=== PATIENT | male | born 1955 | race Caucasian/White ===

== ENCOUNTER 2018-05-11 11:04 | Inpatient (IN) ==
[2018-05-11] MEDS ORDERED: ALBUMIN 5% 250 ML IV SCH ×2 (11:30→13:15)
[2018-05-11] MEDS: ALBUMIN 25% 50 ML IV SCH ×2 (12:05→19:31)
[2018-05-11 12:16] LABS: Basophils # (auto) 0.03 K/uL (0-0.2); Basophils % (auto) 0.6 %; Eosinophils # (auto) 0.03 K/uL (0-0.5); Eosinophils % (auto) 0.6 %; Hemoglobin 12.1 g/dL (14.0-18.0); Immature Granulocytes # (auto) 0.01 K/uL (0.00-0.02); Immature Granulocytes % (auto) 0.2 %; Mean Corpuscular Hgb Conc 35.6 g/dL (32-36); Mean Platelet Volume 9.3 fL (7.4-10.4); Monocytes # (auto) 0.97 K/uL (0.11-0.59); Monocytes % (auto) 17.8 %; Neutrophils % (auto) 69.8 %; Platelet Count 163 K/uL (130-400); RDW Coefficient of Variation 14.5 % (11.5-14.5); RDW Standard Deviation 54.1 fL (36.4-46.3); White Blood Count 5.44 K/uL (4.8-10.8)
[2018-05-11] MEDS ORDERED: LIDOCAINE/EPINEPHRINE 1% 20 ML VIAL INFIL ONE (12:27)
[2018-05-11 12:33] LABS: Albumin Level 2.2 gm/dl (3.4-5.0); BUN Creatinine Ratio 13.8 (10-20); Calcium 8.3 mg/dl (8.5-10.1); Creatinine Clr Calc Pharmacy 104.4 ml/min; Est GFR (African American) 117.5; Est GFR (Non-African American) 101.4; Potassium 3.7 mmol/L (3.5-5.1)
[2018-05-11 12:36] LABS: Albumin Globulin Ratio 0.4 (0.9-2); Bilirubin,Total 3.8 mg/dl (0.2-1); Globulin 5.9 gm/dl (2.5-4.0); Total Protein 8.1 gm/dl (6.4-8.2)
[2018-05-11] MEDS ORDERED: HYDROmorphone INJ 1 MG/ML SYRINGE ONE (12:36)
[2018-05-11] MEDS ORDERED: ONDANSETRON INJ 2 MG/ML 2 ML VIAL ONE (12:36)
[2018-05-11 14:14] LABS: Albumin Peritoneal Fluid 0.8 g/dl; Total Protein Peritoneal Fluid 2.4 g/dl
--- NOTE | 2018-05-11 14:34 | History & Physical Report ---
Date of Service May 11, 2018 Assessment & Plan (1) Ascites: Ascites H/O Hepatitis C Cirrhosis Alcohol Use disorder Patent could not get Liver Transplant evaluation due to Insurance issues Also reports not taking his meds for about 1 week due to Insurance issues S/P Paracentesis-- removed 5 liters of Ascites; S/P albumin infusion Lipase Normal Follow up Ascites fluid Studies Follows with GI in [place] Counseled to quit alcohol use Increase lasix to 40mg QD , aldactone 100mg QD Empirically start on Rocephin for SBP Low Salt diet Consider GI consult if needed Monitor volume status, LFTs Alcohol use disorder: Last alcohol drink was 2 days ago Monitor for Alcohol withdrawal Started on Thiamine, folic acid Ativan PRN Tobacco use disorder 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 NSVT Avoid QTC prolonging meds Monitor QTC EKG in AM Monitor on Tele DVT Px: Heparin SQ Code Status Full Code Disposition: Expect to discharge home when stable History of Present Illness Chief Complaint: Abdominal Pain Primary Care Provider: Steve Gatica Patient is a 62-year-old male with history of hepatitis C, cirrhosis with ascites, alcohol use disorder, tobacco use disorder,NGOZI and other problems presents with history of worsening abdominal pain and distention since 1 month duration. He states abdominal pain is generalized, non radiating, dull to sharp pain. Reports associated shortness of breath secondary to increased abdominal distention. Also states having worsening leg bilateral leg swelling and weight gain of unknown quantity since 1 week duration. Patient states he was supposed to get liver transplant evaluation on April 15 but could not be done secondary to lack of insurance. States his last alcohol drink was 2 days ago. Patient reports that he did not take his diuretics for about a week as he ran out of meds. Patient underwent abdominal paracentesis while in ED and had 5 L of ascites aspirated. Also received albumin while in ED. He states his abdominal pain, SOB have resolved after having paracentesis. Denies any history of chest pain, dizziness, cough, wheezing, hemoptysis, fever, chills, headache, nausea, vomiting, diarrhea, change in appetite, dysuria, hematuria, recent change in medications. 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) Ascites (Acute) Family History Father Cancer Mother Diabetes Kidney disease Other Family history non-contributory Social History Preferred Language: Greenlandic Communication Ability: Effective Medical Transcriber Required: No Beliefs That Will Affect Care: None marital status: Current Living Situation: Significant Other current occupational status: unemployed Other Information That Helps Us Care for You: No Feels Safe at Home: Yes Safety Concerns: Feels Safe At This Time Smoking Status: Current some day smoker Hx Alcohol Use: Yes Hx Substance Use: No Review of Systems All systems reviewed & are unremarkable except as noted in HPI & below Physical Exam Vital Signs (Past 24 Hours): Last Vital Signs Temp 36.8 C 05/11/18 11:09 Pulse 74 05/11/18 13:30 Resp 14 05/11/18 13:30 BP 117/63 05/11/18 13:05 Pulse Ox 99 05/11/18 13:30 Physical Exam: Physical Exam: Vitals signs as noted above General Appearance:Moderately built and nourished, no apparent distress Head: normocephalic, Atraumatic Eyes: normal inspection, EOMI Neck: supple, Trachea midline Respiratory/Chest: Normal breath sounds, CTA Cardiovascular: S1, S2, No murmur Abdomen/GI:Soft, +distended, +Umbilical Hernia, Non tender, Bowel sounds present Extremities/Musculoskelatal:normal inspection, 2+ b/l LE edema Neurologic/Psych:AAOX3, grossly no focal neurological deficits Skin: normal color, warm Results & Data Laboratory Results Short CBC 05/11/18 Range/Units 12:00 WBC 5.44 (4.8-10.8) K/uL Hgb 12.1 L (14.0-18.0) g/dL Hct 34.0 L (42-52) % Plt Count 163 (130-400) K/uL BMP 05/11/18 12:00 Sodium 135 L Potassium 3.7 Chloride 103 Carbon Dioxide 27 BUN 10 Creatinine 0.72 Glucose 86 Calcium 8.3 L Liver Function 05/11/18 Range/Units 12:00 Total Bilirubin 3.8 H (0.2-1) mg/dl AST 45 H (15-37) U/L ALT 23 (12-78) U/L Alkaline Phosphatase 98 (45-117) U/L Albumin 2.2 L (3.4-5.0) gm/dl Diagnostic Findings BAD USD: Ultrasound-guided diagnostic and therapeutic paracentesis with aspiration of 5 L of ascites. ECG Additional Comments: EKG:NSR, LAFB, Nonspecific ST and T wave abnormality; Prolonged QT
[2018-05-11 15:02] LABS: Appearance Peritoneal Fluid CLEAR; Color Peritoneal Fluid YELLOW; Mononuclear WBC Peritoneal 72.9 %; Polynuclear WBC Peritoneal 27.1 %; RBC Peritoneal Fluid (A) < 3000 /uL; WBC Peritoneal Fluid (A) 164 /ul (0-300)
[2018-05-11] MEDS ORDERED: POTASSIUM CHLORIDE 10 MEQ TABCR PO STA (15:55)
[2018-05-11] MEDS ORDERED: POLYETHYLENE (MIRALAX) 17 GM PACK PO PRN (15:55)
[2018-05-11] MEDS ORDERED: ATIVAN IV ALCOHOL WITHDRAWL IV SCH (15:55)
[2018-05-11] MEDS ORDERED: ALBUMIN 25% 50 ML IV ONE (16:30)
[2018-05-11] MEDS: MAGNESIUM SULFATE / D5W 1 GM/100 ML BAG IV ONE ×2 (16:57→17:05)
[2018-05-11] MEDS ORDERED: cefTRIAXone SODIUM 1,000 MG in DEXTROSE 5% 50 ML IV SCH (17:00)
[2018-05-11] MEDS: NICOTINE 14 MG/24 HR PATCH TD SCH (17:03)
[2018-05-11] MEDS ORDERED: LORAZEPAM 1MG IV ACTIVE PROTOCOL IV PRN (17:15)
[2018-05-11] MEDS ORDERED: LORAZEPAM 3MG IV ACTIVE PROTOCOL IV PRN (17:15)
[2018-05-11] MEDS ORDERED: LORAZEPAM 1MG TAB ACTIVE PROTOCOL PO PRN (17:15)
[2018-05-11] MEDS ORDERED: LORAZEPAM 2MG IV ACTIVE PROTOCOL IV PRN (17:15)
[2018-05-11 18:35] LABS: Appearance Urine Clear (Clear); Bacteria Urine Automated Negative (Negative); Blood Urine 3+ (Negative); Color Urine Orange; Glucose Urine UA Negative (Negative); Ketones Urine 1+ (Negative); Leukocyte Esterase Urine 1+ (Negative); Nitrite Urine Positive (Negative); Protein Urine Negative (Negative); Specific Gravity Urine 1.027 (1.000-1.030); Urobilinogen Urine Positive (Negative); pH Urine 5.5 (4.5-7.5)
[2018-05-11 18:49] LABS: Bilirubin Urine 2+ (Negative)
[2018-05-11 18:52] LABS: Ictotest Urine Positive (Negative)
[2018-05-11 19:23] LABS: INR 1.5 (0.9-1.1); Prothrombin Time 14.6 Seconds (9.0-12.0)
[2018-05-11] MEDS: HEPARIN SOD 5,000 UNIT/0.5 ML VIAL SQ SCH (21:31)
[2018-05-12 06:09] LABS: Hemoglobin 10.8 g/dL (14.0-18.0); Mean Corpuscular Hgb Conc 34.8 g/dL (32-36); Mean Corpuscular Volume 103.3 fL (80-100); Mean Platelet Volume 9.3 fL (7.4-10.4); Platelet Count 146 K/uL (130-400); RDW Coefficient of Variation 14.4 % (11.5-14.5); RDW Standard Deviation 54.7 fL (36.4-46.3); White Blood Count 5.67 K/uL (4.8-10.8)
[2018-05-12 06:36] LABS: Albumin Level 1.8 gm/dl (3.4-5.0); BUN Creatinine Ratio 12.2 (10-20); Calcium 7.6 mg/dl (8.5-10.1); Creatinine Clr Calc Pharmacy 104.4 ml/min; Est GFR (African American) 117.5; Est GFR (Non-African American) 101.4; Magnesium 1.9 mg/dl (1.8-2.4); Potassium 3.9 mmol/L (3.5-5.1)
[2018-05-12 06:47] LABS: Albumin Globulin Ratio 0.4 (0.9-2); Bilirubin,Total 2.8 mg/dl (0.2-1); Globulin 4.7 gm/dl (2.5-4.0); Total Protein 6.5 gm/dl (6.4-8.2)
[2018-05-12] MEDS: HEPARIN SOD 5,000 UNIT/0.5 ML VIAL SQ SCH (08:39)
[2018-05-12] MEDS: NICOTINE 14 MG/24 HR PATCH TD SCH (08:40)
[2018-05-12] MEDS ORDERED: FOLIC ACID 1 MG TAB PO SCH (09:00)
[2018-05-12] MEDS ORDERED: SPIRONOLACTONE 100 MG TAB PO SCH (09:00)
[2018-05-12] MEDS ORDERED: FUROSEMIDE 40 MG TAB PO SCH (09:00)
[2018-05-12] MEDS ORDERED: THIAMINE HCL 100 MG TAB PO SCH (09:00)
--- NOTE | 2018-05-12 14:55 | Hospitalist Progress Note ---
Date of Service May 12, 2018 Assessment & Plan (1) Ascites: Ascites H/O Hepatitis C Cirrhosis Alcohol Use disorder Patent could not get Liver Transplant evaluation due to Insurance issues Also reports not taking his meds for about 1 week due to Insurance issues S/P Paracentesis-- removed 5 liters of Ascites; S/P albumin infusion Lipase Normal Peritoneal fluid--Not suggestive of SBP Follows with GI in [place] Counseled to quit alcohol use Increase lasix to 40mg QD , aldactone 100mg QD Empirically received Rocephin Low Salt diet Needs GI follow up as outpatient Monitor volume status, LFTs Alcohol use disorder: Last alcohol drink was 2 days ago Monitor for Alcohol withdrawal Continue Thiamine, folic acid Ativan PRN No signs of withdrawal 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 NSVT--Less likely Avoid QTC prolonging meds Monitor QTC Monitor on Tele-- No issues noted DVT Px: Heparin SQ Code Status Full Code Disposition: Plan to discharge home today Subjective Patient is seen and examined at bedside States feeling well Denies abd pain, nausea, vomiting Also denies chest pain, SOB, dizziness Offers no complaints Physical Exam Vital Signs (Past 24 Hours): Last Vital Signs Temp 37.1 C 05/12/18 06:49 Pulse 73 05/12/18 09:45 Resp 19 05/12/18 06:49 BP 103/74 05/12/18 09:45 Pulse Ox 93 05/12/18 06:49 Physical Exam: Physical Exam: Vitals signs as noted above General Appearance:Moderately built and nourished, no apparent distress Head: normocephalic, Atraumatic Eyes: normal inspection, EOMI Neck: supple, Trachea midline Respiratory/Chest: Normal breath sounds, CTA Cardiovascular: S1, S2, No murmur Abdomen/GI:Soft, +distended, +Umbilical Hernia, Non tender, Bowel sounds present Extremities/Musculoskelatal:normal inspection, 2+ b/l LE edema Neurologic/Psych:AAOX3, grossly no focal neurological deficits Skin: normal color, warm Results & Data Laboratory Results Short CBC 05/12/18 Range/Units 05:57 WBC 5.67 (4.8-10.8) K/uL Hgb 10.8 L (14.0-18.0) g/dL Hct 31.0 L (42-52) % Plt Count 146 (130-400) K/uL BMP 05/12/18 05:57 Sodium 136 Potassium 3.9 Chloride 106 Carbon Dioxide 27 BUN 9 Creatinine 0.72 Glucose 88 Calcium 7.6 L Liver Function 05/12/18 Range/Units 05:57 Total Bilirubin 2.8 H (0.2-1) mg/dl AST 31 (15-37) U/L ALT 16 (12-78) U/L Alkaline Phosphatase 78 (45-117) U/L Albumin 1.8 L (3.4-5.0) gm/dl Urine 05/11/18 Range/Units 18:04 Urine Color [place] Urine Appearance Clear (Clear) Urine pH 5.5 (4.5-7.5) Ur Specific [place] 1.027 (1.000-1.030) Urine Protein Negative (Negative) Urine Glucose (UA) Negative (Negative)
--- NOTE | 2018-05-12 14:59 | Discharge Summary ---
Date of Service May 12, 2018 Admission HPI Per Admitting Provider Patient is a 62-year-old male with history of hepatitis C, cirrhosis with ascites, alcohol use disorder, tobacco use disorder,NGOZI and other problems presents with history of worsening abdominal pain and distention since 1 month duration. He states abdominal pain is generalized, non radiating, dull to sharp pain. Reports associated shortness of breath secondary to increased abdominal distention. Also states having worsening leg bilateral leg swelling and weight gain of unknown quantity since 1 week duration. Patient states he was supposed to get liver transplant evaluation on April 15 but could not be done secondary to lack of insurance. States his last alcohol drink was 2 days ago. Patient reports that he did not take his diuretics for about a week as he ran out of meds. Patient underwent abdominal paracentesis while in ED and had 5 L of ascites aspirated. Also received albumin while in ED. He states his abdominal pain, SOB have resolved after having paracentesis. Denies any history of chest pain, dizziness, cough, wheezing, hemoptysis, fever, chills, headache, nausea, vomiting, diarrhea, change in appetite, dysuria, hematuria, recent change in medications. Admission Exam Per Admitting Provider Physical Exam: Vitals signs as noted above General Appearance:Moderately built and nourished, no apparent distress Head: normocephalic, Atraumatic Eyes: normal inspection, EOMI Neck: supple, Trachea midline Respiratory/Chest: Normal breath sounds, CTA Cardiovascular: S1, S2, No murmur Abdomen/GI:Soft, +distended, +Umbilical Hernia, Non tender, Bowel sounds present Extremities/Musculoskelatal:normal inspection, 2+ b/l LE edema Neurologic/Psych:AAOX3, grossly no focal neurological deficits Skin: normal color, warm Principal Diagnosis Discharge Information Discharge Diagnosis Ascites Alcohol use disorder Discharge Goals Decrease discomfort,Improve disease control, Improve function Discharge Activity Limitations Resume your previous activity Discharge Data Allergies Allergy/AdvReac Type Severity Reaction Status Date / Time iodine Allergy Unknown SHELLFISH Verified 05/11/18 11:36 shellfish derived Allergy Unknown Verified 05/11/18 11:36 Consultations 05/11/18 14:46 ED Decision to Admit Stat 05/11/18 15:55 Consult Case Management - Discharge Planning Routine Procedures Performed ABD USD: Ultrasound-guided diagnostic and therapeutic paracentesis with aspiration of 5 L of ascites. Hospital Course (1) Ascites: Ascites H/O Hepatitis C Cirrhosis Alcohol Use disorder Patent could not get Liver Transplant evaluation due to Insurance issues Also reports not taking his meds for about 1 week due to Insurance issues S/P Paracentesis-- removed 5 liters of Ascites; S/P albumin infusion Lipase Normal Peritoneal fluid--Not suggestive of SBP, No growth to date Follows with GI in [place] Counseled to quit alcohol use Increase lasix to 40mg QD , aldactone 100mg QD Empirically received Rocephin Low Salt diet Needs GI follow up as outpatient Monitor volume status, LFTs Alcohol use disorder: Last alcohol drink was 2 days ago Monitor for Alcohol withdrawal Continue Thiamine, folic acid Ativan PRN No signs of withdrawal Tobacco use disorder 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 NSVT--Less likely Avoid QTC prolonging meds Monitor QTC Monitor on Tele-- No issues noted DVT Px: Heparin SQ Code Status Full Code Disposition: Plan to discharge home today Total Time Total Time Spent Total Time Spent (In Minutes): 34 minutes Total Time Includes: Examination of the Patient, Discharge Planning, Medication Reconciliation and Other Discharge Plan Discharge Items Patient Disposition: Home - Self-Care Reason For Visit: ASCITES Discharge Diagnosis: Ascites Alcohol use disorder Discharge Goals: Decrease discomfort, Improve disease control and Improve function Activity: Resume your previous activity Exercise/Sports: Gradually increase as tolerated Non-emergency contact: Primary Care Provider and Creative Services Director Call non-emergency contact if: you have any medication questions, your symptoms worsen, your pain is not controlled, your pain is worsening, your pain is unusual for you, your pain is concerning for you and you have a fever Follow-up/Referrals: Steve Gatica M.D. [Primary Care Provider] - Diet: Low Sodium (2gm) Fluids: 1500ml (6 cups) Addtl Provider Instructions: Follow up with your PCP in 1 week as advised Follow up with your Creative Services Director in 2 weeks Seek immediate medical attention if your symptoms reoccur or worsen Quit drinking alcohol as advised Prescriptions: New furosemide 40 mg Tablet 40 mg PO QAM 30 Days Qty: 30 RF: 0 spironolactone 100 mg Tablet 100 mg PO QAM 30 Days Qty: 30 RF: 0 thiamine HCl (vitamin B1) [Vitamin B-1] 100 mg Tablet 100 mg PO QAM 30 Days Qty: 30 RF: 0 folic acid 1 mg Tablet 1 mg PO QAM 30 Days Qty: 30 RF: 0 Discontinued furosemide 20 mg tablet 20 mg PO DAILY RF: 0 spironolactone 50 mg tablet 50 mg PO DAILY RF: 0 Stand-Alone Forms: Call Back Authorization, [facility] Discharge Orders: Discharge Order (Routine); Ordered 05/12/18 Ordered By: Philip Baer Admission Data Admit Date/Time: 05/11/18 14:28 Attending Provider: Philip Baer Admit Provider: Philip Baer Primary Care Provider: Steve Gatica Other Providers: Guillermo Aguilar Service: Telemetry Other Interventions: Discharge Summary Assessment (RN) Last Done: 05/12/18 15:33 Pending Studies at Discharge: No DC Date/Time DO NOT enter until pt leaves facility: 05/12/18 16:36
--- NOTE | 2018-05-13 07:38 | Emergency Department Note ---
Entered by Suzanne Tony acting as a scribe for History of Present Illness General Chief complaint: Abdominal Pain Stated complaint: STOMACH PAIN Time Seen by Provider: 05/11/18 11:17 Source: patient History of Present Illness Onset (ago): month(s) 1 Location: abdomen Pain Consistency: + constant Maximum Pain Intensity: 10 Quality: + other (abdominal swelling) Associated symptoms: + other (jaundice, hernia) The patient is a 62 year old male who presents to the Emergency Room with complaints of abdominal pain that has worsened over the past month. The patient reports that he has a history of liver failure that was diagnosed 5 months ago. He notes that he was scheduled to be evaluated for a liver transplant on 04/15/18. However, the patient notes that his insurance was cancelled on 04/14/18 and he was not able to meet with the transplant team in [place] as scheduled. The patient reports he has not had his abdomen drained in 6-8 months. The patient notes that he has a hernia as well that cannot be addressed until the fluid is drained. The patient's female senior executive compensation analyst notes he is jaundiced compared to baseline. The patient states that he continues to drink alcohol. He reports that he needed to have 5 liters of fluid drained from his abdomen during his last paracentisis. Home Medications Home Medications Medication Instructions Recorded Confirmed Type folic acid 1 mg PO QAM 30 Days #30 tab 05/12/18 Rx furosemide 40 mg PO QAM 30 Days #30 tab 05/12/18 Rx spironolactone 100 mg PO QAM 30 Days #30 tab 05/12/18 Rx thiamine HCl (vitamin B1) [Vitamin 100 mg PO QAM 30 Days #30 tab 05/12/18 Rx B-1] Allergies Allergy/AdvReac Type Severity Reaction Status Date / Time iodine Allergy Unknown SHELLFISH Verified 05/11/18 11:36 shellfish derived Allergy Unknown Verified 05/11/18 11:36 Past Med/Surg History Medical History Alcohol use disorder Cirrhosis Hepatitis C No significant past surgical history Tobacco use disorder 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 and A total of 10 systems reviewed and were otherwise negative Physical Exam Vital Signs Vital Signs - 24 hr 05/12/18 08:00 05/12/18 09:45 05/12/18 14:20 Temperature Temperature Source Pulse Rate 76 Pulse Rate [Right Finger] 73 Pulse Rhythm [Right Finger] Regular Pulse Strength [Right Finger] Normal Respiratory Rate Respiratory Effort / Characteristics Non-Labored Respiratory Depth Normal Respiratory Pattern Regular Blood Pressure [Left Arm] 103/74 Blood Pressure Mean [Left Arm] 83 Blood Pressure Position [Left Arm] Semi-fowlers Pulse Oximetry Oxygen Delivery Method Room Air 05/12/18 15:33 05/12/18 15:47 Temperature 37.1 C 37.1 C Temperature Source Oral Pulse Rate Pulse Rate [Right Finger] 73 73 Pulse Rhythm [Right Finger] Pulse Strength [Right Finger] Respiratory Rate 19 18 Respiratory Effort / Characteristics Respiratory Depth Respiratory Pattern Blood Pressure [Left Arm] 103/74 106/67 Blood Pressure Mean [Left Arm] 80 Blood Pressure Position [Left Arm] Lying Pulse Oximetry 93 93 Oxygen Delivery Method Room Air GENERAL: Patient is a well-nourished. Patient is jaundiced. HEAD: Normocephalic atraumatic EYES: Ocular movements intact pupils equal and react to light OROPHARYNX mucous membranes are moist no exudates present no erythema or edema present NECK: Supple no nuchal rigidity CHEST: Good equal expansion LUNGS: Clear and equal to auscultation CARDIAC: Normal S1 and S2 ABDOMEN: Grossly distended with fluid wave present. BACK: No CVA tenderness EXTREMITIES: No pain upon palpation normal muscle strength in all groups no clubbing cyanosis or edema NEURO: Patient is following commands is answering questions appropriately. Alert and oriented x3 Cranial Nerves 2-12 grossly intact Procedures Paracentesis Time Out Performed: Yes Indication: Ascites Procedure: therapeutic paracentesis Location: RLQ Local Anesthetic: lidocaine 1% Amount of anesthesia used (mL): 4 Bedside Ultrasound Used: yes, Ascites confirmed and location marked Preparation: sterile prep and drape Amount of fluid obtained (mL): 7,500 Fluid: clear Size of Needle Used: 18 Post Procedure Exam: awake, alert, normal BP, normal HR and normal SpO2 Patient Tolerated Procedure: well Complications: none Course 1119: Past medical records reviewed. The patient was evaluated in room C01, and a complete history and physical examination were performed. 1230: I performed a therapeutic paracentesis on the patient, who tolerated the procedure well. 1315: I discussed the patient's case with ANTHONY Arreola , who will evaluate the patient for further evaluation. 1345: I discussed the treatment plan with the patient and he is amenable to the plan. He will be evaluated for further treatment by ANTHONY Arreola and her attending physician, Tara Culp. Administered Medications Discontinued Medications Folic Acid (Folvite) 1 mg PO QAM [facility] Stop: 06/11/18 08:59 Last Admin: 05/12/18 08:36 Dose: 1 mg Documented by: [id number] Furosemide (Lasix) 40 mg PO QAM [facility] Stop: 06/11/18 08:59 Last Admin: 05/12/18 09:49 Dose: 40 mg Documented by: [id number] Heparin Sodium (Porcine) (Heparin Sodium (Porcine)) 5,000 units SQ Q12 [facility] Stop: 06/10/18 20:59 Last Admin: 05/12/18 08:39 Dose: 5,000 units Documented by: [id number] Cosigned by: [id number] Admin: 05/11/18 21:31 Dose: 5,000 units Documented by: [id number] Cosigned by: [id number] Hydromorphone HCl (Dilaudid) Confirm Administered Dose 1 mg .ROUTE .STK-MED ONE Stop: 05/11/18 12:37 Last Admin: 05/11/18 12:44 Dose: 1 mg Documented by: [id number] Albumin Human (Albumin 25%) 50 mls @ 50 mls/hr IV Q1H [facility] Stop: 05/14/18 11:29 Last Admin: 05/11/18 19:31 Dose: Not Given Documented by: [id number] Admin: 05/11/18 19:31 Dose: Not Given Documented by: [id number] Admin: 05/11/18 19:31 Dose: Not Given Documented by: [id number] Admin: 05/11/18 19:31 Dose: Not Given Documented by: [id number] Infusion: 05/11/18 13:25 Dose: 0 mls/hr Documented by: [id number] Admin: 05/11/18 12:05 Dose: 50 mls/hr Documented by: [id number] Albumin Human (Albumin 25%) 50 mls @ 50 mls/hr IV Q1H ONE Stop: 05/11/18 17:29 Last Infusion: 05/11/18 17:15 Dose: 0 mls/hr Documented by: [id number] Admin: 05/11/18 16:15 Dose: 50 mls/hr Documented by: [id number] Magnesium Sulfate/Dextrose (Magnesium Sulfate / D5w) 1 gm in 100 mls @ 100 mls/hr IV 1630 ONE Stop: 05/11/18 17:29 Last Infusion: 05/11/18 18:15 Dose: 0 mls/hr Documented by: [id number] Admin: 05/11/18 17:05 Dose: 100 mls/hr Documented by: [id number] Ceftriaxone Sodium 1,000 mg/ (Dextrose) 50 mls @ 100 mls/hr IV Q24H VARUN; Protocol Stop: 05/13/18 16:59 Last Infusion: 05/11/18 18:59 Dose: 0 mls/hr Documented by: [id number] Admin: 05/11/18 18:08 Dose: 100 mls/hr Documented by: [id number] Lidocaine/Epinephrine (Xylocaine/Epinephrine 1%) 20 ml INFIL NOW ONE Stop: 05/11/18 12:28 Last Admin: 05/11/18 12:42 Dose: 20 ml Documented by: [id number] Miscellaneous (Remove Nicoderm Patch) 1 ea N/A HS VARUN Stop: 06/10/18 20:59 Last Admin: 05/11/18 20:57 Dose: 1 ea Documented by: [id number] Nicotine (Nicoderm Cq) 14 mg TD QAM VARUN Stop: 06/10/18 15:54 Last Admin: 05/12/18 08:40 Dose: 14 mg Documented by: [id number] Admin: 05/11/18 17:03 Dose: 14 mg Documented by: [id number] Ondansetron HCl (Zofran) Confirm Administered Dose 4 mg .ROUTE .STK-MED ONE Stop: 05/11/18 12:37 Last Admin: 05/11/18 12:43 Dose: 4 mg Documented by: [id number] Potassium Chloride (Klor-Con M10) 40 meq PO NOW STA Stop: 05/11/18 15:56 Last Admin: 05/11/18 16:51 Dose: 40 meq Documented by: [id number] Sp[facility]actone (Aldactone) [facility] [place] Stop: 06/11/18 08:59 Last Admin: 05/12/18 09:49 Dose: 100 mg Documented by: [id number] Thiamine HCl (Vitamin B-1) 100 mg PO QAM [facility] Stop: 06/11/18 08:59 Last Admin: 05/12/18 08:36 Dose: 100 mg Documented by: [id number] Medical Decision Making Differential Diagnosis Differential diagnosis: Etiologies such as biliary colic, cholecystitis, hepatitis, pancreatitis, cardiac disease, pancreatitis, gastritis, peptic ulcer disease, appendicitis, cystitis, diverticulitis, mesenteric ischemia, inflammatory bowel disease, ileus, bowel obstruction, testicular torsion, aortic pathology, shingles, as well as others were considered. Medical Records Attestation: I reviewed the patient's medical records. Home Medications Current Medication List: was personally reviewed by me Laboratory Data Attestation: I reviewed the patient's lab results. Result diagrams: 05/12/18 05:57 05/12/18 05:57 Lab Results 05/11/18 05/11/18 05/11/18 Range/Units 12:00 12:00 12:00 WBC 5.44 (4.8-10.8) K/uL RBC 3.30 L (4.7-6.1) M/uL Hgb 12.1 L (14.0-18.0) g/dL Hct 34.0 L (42-52) % MCV 103.0 H (80-100) fL MCH 36.7 H (25-34) pg MCHC 35.6 (32-36) g/dL RDW Std Deviation 54.1 H (36.4-46.3) fL RDW Coeff of Mitchell 14.5 (11.5-14.5) % Plt Count 163 (130-400) K/uL MPV 9.3 (7.4-10.4) fL Immature Gran % (Auto) 0.2 % Neut % (Auto) 69.8 % Lymph % (Auto) 11.0 % Turner % (Auto) 17.8 % Eos % (Auto) 0.6 % Baso % (Auto) 0.6 % Immature Gran # (Auto) 0.01 (0.00-0.02) K/uL Neut # (Auto) 3.80 (1.4-6.5) K/uL Lymph # (Auto) 0.60 L (1.2-3.4) K/uL Turner # (Auto) 0.97 H (0.11-0.59) K/uL Eos # (Auto) 0.03 (0-0.5) K/uL Baso # (Auto) 0.03 (0-0.2) K/uL PT 14.6 H (9.0-12.0) Seconds INR 1.5 H (0.9-1.1) Sodium 135 L (136-145) mmol/L Potassium 3.7 (3.5-5.1) mmol/L Chloride 103 (98-107) mmol/L Carbon Dioxide 27 (21-32) mmol/L Anion Gap 5.0 (3-11) BUN 10 (7-18) mg/dl Creatinine 0.72 (0.6-1.4) mg/dl Est Cr Clr Drug Dosing 104.4 ml/min Est GFR ( Amer) 117.5 Est GFR (Non-Af Amer) 101.4 BUN/Creatinine Ratio 13.8 (10-20) Glucose 86 (70-99) mg/dl Calcium 8.3 L (8.5-10.1) mg/dl Magnesium (1.8-2.4) mg/dl Total Bilirubin 3.8 H (0.2-1) mg/dl AST 45 H (15-37) U/L ALT 23 (12-78) U/L Alkaline Phosphatase 98 (45-117) U/L Total Protein 8.1 (6.4-8.2) gm/dl Albumin 2.2 L (3.4-5.0) gm/dl Globulin 5.9 H (2.5-4.0) gm/dl Albumin/Globulin Ratio 0.4 L (0.9-2) Lipase 120 (73-393) U/L Urine Color Urine Appearance (Clear) Urine pH (4.5-7.5) Ur Specific [place] (1.000-1.030) Urine Protein (Negative) Urine Glucose (UA) (Negative) Urine Ketones (Negative) Urine Blood (Negative) Urine Nitrite (Negative) Urine Bilirubin (Negative) Urine Urobilinogen (Negative) Ur Leukocyte Esterase (Negative) Urine WBC (Auto) (0-5) /hpf Urine RBC (Auto) (0-4) /hpf U Hyaline Cast (Auto) (0-5) /lpf U Epithel Cells (Auto) (0-5) /lpf Urine Bacteria (Auto) (Negative) Fluid Slide Review Peritoneal Color Peritoneal Appearance Peritoneal WBC (0-300) /ul Peritoneal RBC /uL Mononuclear WBCs % % Polynuclear WBCs % % Peritoneal Tot Protein g/dl Peritoneal Albumin g/dl 05/11/18 05/11/18 05/11/18 Range/Units 13:09 13:09 13:09 WBC (4.8-10.8) K/uL RBC (4.7-6.1) M/uL Hgb (14.0-18.0) g/dL Hct (42-52) % MCV (80-100) fL MCH (25-34) pg MCHC (32-36) g/dL RDW Std Deviation (36.4-46.3) fL RDW Coeff of Mitchell (11.5-14.5) % Plt Count (130-400) K/uL MPV (7.4-10.4) fL Immature Gran % (Auto) % Neut % (Auto) % Lymph % (Auto) % Turner % (Auto) % Eos % (Auto) % Baso % (Auto) % Immature Gran # (Auto) (0.00-0.02) K/uL Neut # (Auto) (1.4-6.5) K/uL Lymph # (Auto) (1.2-3.4) K/uL Turner # (Auto) (0.11-0.59) K/uL Eos # (Auto) (0-0.5) K/uL Baso # (Auto) (0-0.2) K/uL PT (9.0-12.0) Seconds INR (0.9-1.1) Sodium (136-145) mmol/L Potassium (3.5-5.1) mmol/L Chloride (98-107) mmol/L Carbon Dioxide (21-32) mmol/L Anion Gap (3-11) BUN (7-18) mg/dl Creatinine (0.6-1.4) mg/dl Est Cr Clr Drug Dosing ml/min Est GFR ( Amer) Est GFR (Non-Af Amer) BUN/Creatinine Ratio (10-20) Glucose (70-99) mg/dl Calcium (8.5-10.1) mg/dl Magnesium (1.8-2.4) mg/dl Total Bilirubin (0.2-1) mg/dl AST (15-37) U/L ALT (12-78) U/L Alkaline Phosphatase (45-117) U/L Total Protein (6.4-8.2) gm/dl Albumin (3.4-5.0) gm/dl Globulin (2.5-4.0) gm/dl Albumin/Globulin Ratio (0.9-2) Lipase (73-393) U/L Urine Color Urine Appearance (Clear) Urine pH (4.5-7.5) Ur Specific [place] (1.000-1.030) Urine Protein (Negative) Urine Glucose (UA) (Negative) Urine Ketones (Negative) Urine Blood (Negative) Urine Nitrite (Negative) Urine Bilirubin (Negative) Urine Urobilinogen (Negative) Ur Leukocyte Esterase (Negative) Urine WBC (Auto) (0-5) /hpf Urine RBC (Auto) (0-4) /hpf U Hyaline Cast (Auto) (0-5) /lpf U Epithel Cells (Auto) (0-5) /lpf Urine Bacteria (Auto) (Negative) Fluid Slide Review Peritoneal Color YELLOW Peritoneal Appearance CLEAR Peritoneal WBC 164 (0-300) /ul Peritoneal RBC < 3000 /uL Mononuclear WBCs % 72.9 % Polynuclear WBCs % 27.1 % Peritoneal Tot Protein 2.4 Cancelled g/dl Peritoneal Albumin 0.8 g/dl 05/11/18 05/12/18 05/12/18 Range/Units 18:04 05:57 05:57 WBC 5.67 (4.8-10.8) K/uL RBC 3.00 L (4.7-6.1) M/uL Hgb 10.8 L (14.0-18.0) g/dL Hct 31.0 L (42-52) % MCV 103.3 H (80-100) fL MCH 36.0 H (25-34) pg MCHC 34.8 (32-36) g/dL RDW Std Deviation 54.7 H (36.4-46.3) fL RDW Coeff of Mitchell 14.4 (11.5-14.5) % Plt Count 146 (130-400) K/uL MPV 9.3 (7.4-10.4) fL Immature Gran % (Auto) % Neut % (Auto) % Lymph % (Auto) % Turner % (Auto) % Eos % (Auto) % Baso % (Auto) % Immature Gran # (Auto) (0.00-0.02) K/uL Neut # (Auto) (1.4-6.5) K/uL Lymph # (Auto) (1.2-3.4) K/uL Turner # (Auto) (0.11-0.59) K/uL Eos # (Auto) (0-0.5) K/uL Baso # (Auto) (0-0.2) K/uL PT (9.0-12.0) Seconds INR (0.9-1.1) Sodium 136 (136-145) mmol/L Potassium 3.9 (3.5-5.1) mmol/L Chloride 106 (98-107) mmol/L Carbon Dioxide 27 (21-32) mmol/L Anion Gap 3.0 (3-11) BUN 9 (7-18) mg/dl Creatinine 0.72 (0.6-1.4) mg/dl Est Cr Clr Drug Dosing 104.4 ml/min Est GFR ( Amer) 117.5 Est GFR (Non-Af Amer) 101.4 BUN/Creatinine Ratio 12.2 (10-20) Glucose 88 (70-99) mg/dl Calcium 7.6 L (8.5-10.1) mg/dl Magnesium 1.9 (1.8-2.4) mg/dl Total Bilirubin 2.8 H (0.2-1) mg/dl AST 31 (15-37) U/L ALT 16 (12-78) U/L Alkaline Phosphatase 78 (45-117) U/L Total Protein 6.5 (6.4-8.2) gm/dl Albumin 1.8 L (3.4-5.0) gm/dl Globulin 4.7 H (2.5-4.0) gm/dl Albumin/Globulin Ratio 0.4 L (0.9-2) Lipase (73-393) U/L Urine Color [place] Urine Appearance Clear (Clear) Urine pH 5.5 (4.5-7.5) Ur Specific [place] 1.027 (1.000-1.030) Urine Protein Negative (Negative) Urine Glucose (UA) Negative (Negative) Urine Ketones 1+ H (Negative) Urine Blood 3+ H (Negative) Urine Nitrite Positive H (Negative) Urine Bilirubin 2+ H (Negative) Urine Urobilinogen Positive H (Negative) Ur Leukocyte Esterase 1+ H (Negative) Urine WBC (Auto) 1-5 (0-5) /hpf Urine RBC (Auto) 10-30 H (0-4) /hpf U Hyaline Cast (Auto) 5-10 H (0-5) /lpf U Epithel Cells (Auto) 5-10 H (0-5) /lpf Urine Bacteria (Auto) Negative (Negative) Fluid Slide Review Peritoneal Color Peritoneal Appearance Peritoneal WBC (0-300) /ul Peritoneal RBC /uL Mononuclear WBCs % % Polynuclear WBCs % % Peritoneal Tot Protein g/dl Peritoneal Albumin g/dl ECG Data Attestation: I personally reviewed and interpreted this ECG as follows: Indication: abdominal pain Rhythm: normal sinus Findings: + other (prolonged QT interval); no PAC, no PVC, no ST depression, no ST elevation, no acute ischemic change and no ectopy Blood Pressure Blood Pressure Findings: Normal blood pressure MDM Narrative This is a 62 year old male who presents to the ED complaining of abd distension. A therapuetic/diagnostic paracentesis tap was performed as above. His albumin started to be repleted here. Because of how much fluid was taken off the patient I did discuss the case with the hospitalist who did accept the patient. They will continue to replete his albumin. Patient was in agreement with the treatment plan. Impression & Plan Ascites, Abdominal pain Critical Care Time I have personally spent greater than 30 minutes of critical care time in the direct management of this patient. This includes bedside care, interpretation of diagnostic studies, and testing, discussion with consultants, patient, and family members, and other required patient management activities. This 30 minutes is in excess of all separately billable procedures. Critical Care Time: Yes Total Critical Care Time: 30 Discharge Plan Visit Data *Final* Discharge Date/Time: 05/11/18 15:25 Chief Complaint: Abdominal Pain Stated Complaint: STOMACH PAIN ED Provider: Kong Chanel Discharge Problem: Ascites, Abdominal pain Patient Disposition: Admitted As Inpatient Discharge Instructions Interventions: ED Discharge Assessment Last Done: 05/11/18 15:25 The scribe's documentation has been prepared under my direction and personally reviewed by me in its entirety. I confirm that the note above accurately reflects all work, treatment, procedures, and medical decision making performed by me.
--- NOTE | 2018-05-15 08:02 | Coding Query ---
CODING QUERY To promote full compliance with coding requirements relating to patient care, provider participation is requested in all cases of sand screener operator uncertainty. Please assist us with the question(s) below: Coding Question(s): Dr. Baer, Please clarify if the patient's ascites was due to: ( ) unspecified cirrhosis of the liver ( ) alcoholic cirrhosis of the liver ( ) Hepatitis C (X ) other, please explain: Both due to Alcohol use disorder and Hepatitis C ( ) unable to determine Also, did the patient have: ( X ) Alcohol use disorder ( ) Alcohol abuse disorder ( ) Alcohol dependence disorder ( ) Other, please explain ( ) Unable to determine Physician's Response(s): Thank you for your time, MACKENZIE Saenz, SENIOR BACKUP ADMINISTRATOR [facility]
== END 2018-05-12 16:36 | disposition home or self-care (01) | DRG 442 ==
LOC: ED 11:04 → 2N 14:28

== ENCOUNTER 2018-05-26 11:16 | Inpatient (IN) ==
[2018-05-26] MEDS ORDERED: MoRPHine SULFATE 4 MG/ML 1 ML CARP\\VIAL IV STA (12:06)
[2018-05-26 12:24] LABS: Basophils # (auto) 0.04 K/uL (0-0.2); Basophils % (auto) 0.4 %; Eosinophils # (auto) 0.02 K/uL (0-0.5); Eosinophils % (auto) 0.2 %; Immature Granulocytes # (auto) 0.03 K/uL (0.00-0.02); Immature Granulocytes % (auto) 0.3 %; Lymphocytes # (auto) 0.99 K/uL (1.2-3.4); Mean Corpuscular Hgb Conc 35.9 g/dL (32-36); Mean Corpuscular Volume 102.9 fL (80-100); Mean Platelet Volume 9.8 fL (7.4-10.4); Monocytes # (auto) 0.72 K/uL (0.11-0.59); Neutrophils # (auto) 7.21 K/uL (1.4-6.5); Neutrophils % (auto) 80.1 %; Platelet Count 185 K/uL (130-400); RDW Coefficient of Variation 13.6 % (11.5-14.5); RDW Standard Deviation 51.2 fL (36.4-46.3); Red Blood Count 3.79 M/uL (4.7-6.1); White Blood Count 9.01 K/uL (4.8-10.8)
[2018-05-26 12:33] LABS: INR 1.4 (0.9-1.1); Prothrombin Time 13.9 Seconds (9.0-12.0)
[2018-05-26 12:44] LABS: Albumin Level 2.1 gm/dl (3.4-5.0); BUN Creatinine Ratio 17.5 (10-20); Calcium 8.6 mg/dl (8.5-10.1); Creatinine Clr Calc Pharmacy 65.1 ml/min; Est GFR (Non-African American) 76.8; Potassium 4.1 mmol/L (3.5-5.1)
[2018-05-26 12:47] LABS: Albumin Globulin Ratio 0.3 (0.9-2); Bilirubin,Total 2.2 mg/dl (0.2-1); Globulin 6.7 gm/dl (2.5-4.0); Total Protein 8.8 gm/dl (6.4-8.2)
[2018-05-26 12:51] LABS: Partial Thromboplastin Time 26.1 Seconds (21.0-31.0)
--- NOTE | 2018-05-26 13:17 | Emergency Department Note ---
History of Present Illness General Chief complaint: Abdominal Pain Stated complaint: EXTREME TROUBLE BREATHING, ASCITIES Time Seen by Provider: 05/26/18 11:53 History of Present Illness Maximum Pain Intensity: 10 This patient is a 62-year-old male who presents to the emergency department complaining of severe abdominal distention and pain for the last several days. The patient has a history of alcoholic/hepatitis and cirrhosis. He has end- stage liver disease. The patient was recently discharged from the hospital for the same complaint. He also reports diarrhea. He says that his pain is particularly in the umbilical region and a sharp, stabbing sensation worse with any movement. He has tried Aleve with no relief. No fever or chills. The patient was in the emergency department approximately 1 week ago where he required a paracentesis for fluid. He reports that he has not followed up with any doctors due to the fact that he does not have insurance. He reports taking his medications as prescribed. Home Medications Home Medications Medication Instructions Recorded Confirmed Type folic acid 1 mg PO QAM 30 Days #30 tab 05/12/18 05/26/18 Rx furosemide 40 mg PO QAM 30 Days #30 tab 05/12/18 05/26/18 Rx spironolactone 100 mg PO QAM 30 Days #30 tab 05/12/18 05/26/18 Rx thiamine HCl (vitamin B1) [Vitamin 100 mg PO QAM 30 Days #30 tab 05/12/18 05/26/18 Rx B-1] multivitamin 1 tab PO QAM 05/26/18 05/26/18 History Allergies Allergy/AdvReac Type Severity Reaction Status Date / Time iodine Allergy Unknown SHELLFISH Verified 05/26/18 12:30 shellfish derived Allergy Unknown Verified 05/26/18 12:30 Past Med/Surg History Medical History 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) Alcohol use disorder (Chronic) Tobacco use disorder (Chronic) Hepatitis C (Chronic) Ascites (Acute) Decompensation of cirrhosis of liver (Acute) etoh, chronic HCV Surgical History History of esophagogastroduodenoscopy (EGD) (Chronic) Family History Father Cancer Mother Diabetes Kidney disease Social History Communication Ability: Effective Beliefs That Will Affect Care: None marital status: Current Living Situation: Significant Other current occupational status: unemployed Other Information That Helps Us Care for You: No Feels Safe at Home: Yes Smoking Status: Current some day smoker Hx Alcohol Use: Yes Hx Substance Use: No Review of Systems A total of 10 systems reviewed and were otherwise negative Physical Exam Vital Signs Vital Signs - 24 hr 05/26/18 16:01 05/26/18 19:06 05/27/18 00:42 Temperature 36.9 C 37.0 C Temperature Source Oral Oral Pulse Rate 79 Pulse Rate [Apical] 81 84 Respiratory Rate 18 18 18 Blood Pressure 106/76 Blood Pressure [Left Arm] 111/78 115/73 Blood Pressure Mean [Left Arm] 89 87 Blood Pressure Position [Left Arm] Lying Lying Pulse Oximetry 93 92 91 Oxygen Delivery Method Room Air Room Air Room Air 05/27/18 04:35 05/27/18 08:03 05/27/18 09:00 Temperature 36.8 C Temperature Source Oral Pulse Rate Pulse Rate [Apical] 76 80 Respiratory Rate 18 Blood Pressure Blood Pressure [Left Arm] 114/76 111/65 Blood Pressure Mean [Left Arm] 88 80 Blood Pressure Position [Left Arm] Lying Pulse Oximetry 92 Oxygen Delivery Method Room Air Room Air 05/27/18 11:20 05/27/18 11:44 05/27/18 14:51 Temperature 36.5 C 36.8 C 36.7 C Temperature Source Oral Oral Oral Pulse Rate Pulse Rate [Apical] 76 78 78 Respiratory Rate 16 16 16 Blood Pressure Blood Pressure [Left Arm] 114/64 113/65 107/66 Blood Pressure Mean [Left Arm] 80 81 79 Blood Pressure Position [Left Arm] Pulse Oximetry 94 94 95 Oxygen Delivery Method Room Air Room Air Room Air 05/27/18 15:18 05/27/18 15:48 Temperature 36.8 C 36.8 C Temperature Source Oral Oral Pulse Rate Pulse Rate [Apical] 76 77 Respiratory Rate 18 18 Blood Pressure Blood Pressure [Left Arm] 101/65 97/63 L Blood Pressure Mean [Left Arm] 77 74 Blood Pressure Position [Left Arm] Pulse Oximetry 95 93 Oxygen Delivery Method Room Air Room Air Constitutional WD/WN, vitals as above Eyes EOM intact bilaterally ENMT Oral mucosa dry Neck trachea midline Respiratory normal respiratory effort, lungs clear to auscultation Cardiovascular RRR, no murmur, no edema Gastrointestinal (Abdomen) Severe abdominal distention noted. Bowel sounds present. Diffuse tenderness. Reducible umbilical hernia noted. Musculoskeletal no cyanosis or clubbing, extremities motor strength 5/5 Skin no rashes, warm and dry Neurologic Alert and oriented x3. No focal motor deficits. Psychiatric Acting appropriately Course Patient was seen and examined Vital signs including blood pressure were reviewed medications list was verified with patient Labs were obtained, and a saline lock was established The case was discussed with my supervising physician The patient was reassessed and more comfortable after receiving morphine 4 mg IV. We discussed his results. He voiced understanding, and was in agreement with the plan. The case [facility] the patient for possible further inpatient management. Consultations Consultation #1: Verena Masters PA-C Administered Medications [facility] [place] [place] 06/26/18 08:59 Last Admin: 05/27/18 08:04 Dose: 1 mg Documented by: [id number] Furosemide (Lasix) [facility] [place]: 06/26/18 08:59 Last Admin: 05/27/18 08:05 Dose: 40 mg Documented by: [id number] Albumin Human (Albumin 25%) 50 mls @ 50 mls/hr IV 1600 ONE Stop: 05/27/18 16:59 Last Admin: 05/27/18 15:44 Dose: 50 mls/hr Documented by: [id number] Morphine Sulfate (Morphine Sulfate) 4 mg IV Q4H PRN PRN Reason: severe pain Stop: 06/09/18 18:49 Last Admin: 05/27/18 09:18 Dose: 4 mg Documented by: [id number] Admin: 05/26/18 23:18 Dose: 4 mg Documented by: [id number] Admin: 05/26/18 19:08 Dose: 4 mg Documented by: [id number] Multivitamins (Multivitamin Tab) 1 tab PO QAM [facility] Stop: 06/26/18 08:59 Last Admin: 05/27/18 08:04 Dose: 1 tab Documented by: [id number] Nicotine (Nicoderm Cq) 21 mg TD QAM [facility] Stop: 06/25/18 16:59 Last Admin: 05/27/18 08:05 Dose: 21 mg Documented by: [id number] Admin: 05/26/18 17:56 Dose: Not Given Documented by: [id number] Spironolactone (Aldactone) 100 mg PO QAM [facility] Stop: 06/26/18 08:59 Last Admin: 05/27/18 08:05 Dose: 100 mg Documented by: [id number] Thiamine HCl (Vitamin B-1) 100 mg PO QAM [facility] Stop: 06/26/18 08:59 Last Admin: 05/27/18 08:04 Dose: 100 mg Documented by: [id number] Tramadol HCl (Ultram) 50 mg PO Q4H PRN PRN Reason: Pain Stop: 06/25/18 16:35 Last Admin: 05/27/18 08:04 Dose: 50 mg Documented by: [id number] Admin: 05/26/18 17:56 Dose: 50 mg Documented by: [id number] Discontinued Medications Folic Acid (Folvite) 1 mg PO NOW STA Stop: 05/26/18 16:32 Last Admin: 05/26/18 17:55 Dose: 1 mg Documented by: [id number] Furosemide (Lasix) 40 mg PO NOW STA Stop: 05/26/18 16:34 Last Admin: 05/26/18 17:55 Dose: 40 mg Documented by: [id number] Albumin Human (Albumin 25%) 50 mls @ 50 mls/hr IV 1430 ONE Stop: 05/27/18 15:29 Last Infusion: 05/27/18 15:48 Dose: 0 mls/hr Documented by: [id number] Admin: 05/27/18 14:53 Dose: 50 mls/hr Documented by: [id number] Morphine Sulfate (Morphine Sulfate) 4 mg IV NOW STA Stop: 05/26/18 12:07 Last Admin: 05/26/18 12:22 Dose: 4 mg Documented by: [id number] Spironolactone (Aldactone) 100 mg PO NOW STA Stop: 05/26/18 16:33 Last Admin: 05/26/18 17:55 Dose: 100 mg Documented by: [id number] Thiamine HCl (Vitamin B-1) 100 mg PO NOW STA Stop: 05/26/18 16:33 Last Admin: 05/26/18 17:55 Dose: 100 mg Documented by: [id number] Medical Decision Making Medical Records Attestation: I reviewed the patient's medical records. Home Medications Current Medication List: was personally reviewed by me Laboratory Data Attestation: I reviewed the patient's lab results. Result diagrams: 05/27/18 05:08 05/27/18 05:08 Lab Results 05/26/18 05/26/18 05/26/18 Range/Units 12:15 12:15 12:15 WBC 9.01 (4.8-10.8) K/uL RBC 3.79 L (4.7-6.1) M/uL Hgb 14.0 (14.0-18.0) g/dL Hct 39.0 L (42-52) % MCV 102.9 H (80-100) fL MCH 36.9 H (25-34) pg MCHC 35.9 (32-36) g/dL RDW Std Deviation 51.2 H (36.4-46.3) fL RDW Coeff of Mitchell 13.6 (11.5-14.5) % Plt Count 185 (130-400) K/uL MPV 9.8 (7.4-10.4) fL Immature Gran % (Auto) 0.3 % Neut % (Auto) 80.1 % Lymph % (Auto) 11.0 % Elliott % (Auto) 8.0 % Eos % (Auto) 0.2 % Baso % (Auto) 0.4 % Immature Gran # (Auto) 0.03 H (0.00-0.02) K/uL Neut # (Auto) 7.21 H (1.4-6.5) K/uL Lymph # (Auto) 0.99 L (1.2-3.4) K/uL Elliott # (Auto) 0.72 H (0.11-0.59) K/uL Eos # (Auto) 0.02 (0-0.5) K/uL Baso # (Auto) 0.04 (0-0.2) K/uL PT 13.9 H (9.0-12.0) Seconds INR 1.4 H (0.9-1.1) APTT (21.0-31.0) Seconds PTT Ratio Sodium 135 L (136-145) mmol/L Potassium 4.1 (3.5-5.1) mmol/L Chloride 103 (98-107) mmol/L Carbon Dioxide 28 (21-32) mmol/L Anion Gap 4.0 (3-11) BUN 18 (7-18) mg/dl Creatinine 1.05 (0.6-1.4) mg/dl Est Cr Clr Drug Dosing 65.1 ml/min Est GFR ( Amer) 89.0 Est GFR (Non-Af Amer) 76.8 BUN/Creatinine Ratio 17.5 (10-20) Glucose 105 H (70-99) mg/dl Calcium 8.6 (8.5-10.1) mg/dl Total Bilirubin 2.2 H (0.2-1) mg/dl AST 41 H (15-37) U/L ALT 23 (12-78) U/L Alkaline Phosphatase 121 H (45-117) U/L Ammonia (11-32) umol/L Total Protein 8.8 H (6.4-8.2) gm/dl Albumin 2.1 L (3.4-5.0) gm/dl Globulin 6.7 H (2.5-4.0) gm/dl Albumin/Globulin Ratio 0.3 L (0.9-2) Urine Color Urine Appearance (Clear) Urine pH (4.5-7.5) Ur Specific [place] (1.000-1.030) Urine Protein (Negative) Urine Glucose (UA) (Negative) Urine Ketones (Negative) Urine Blood (Negative) Urine Nitrite (Negative) Urine Bilirubin (Negative) Urine Urobilinogen (Negative) Ur Leukocyte Esterase (Negative) Urine WBC (Auto) (0-5) /hpf Urine RBC (Auto) (0-4) /hpf U Hyaline Cast (Auto) (0-5) /lpf U Epithel Cells (Auto) (0-5) /lpf Urine Bacteria (Auto) (Negative) Urine Yeast (None Prsent) Peritoneal Color Peritoneal Appearance Peritoneal WBC (0-300) /ul Peritoneal RBC /uL Mononuclear WBCs % % Polynuclear WBCs % % Peritoneal Tot Protein g/dl Peritoneal Albumin g/dl 05/26/18 05/26/18 05/26/18 Range/Units 12:15 12:15 Unknown WBC (4.8-10.8) K/uL RBC (4.7-6.1) M/uL Hgb (14.0-18.0) g/dL Hct (42-52) % MCV (80-100) fL MCH (25-34) pg MCHC (32-36) g/dL RDW Std Deviation (36.4-46.3) fL RDW Coeff of Mitchell (11.5-14.5) % Plt Count (130-400) K/uL MPV (7.4-10.4) fL Immature Gran % (Auto) % Neut % (Auto) % Lymph % (Auto) % Elliott % (Auto) % Eos % (Auto) % Baso % (Auto) % Immature Gran # (Auto) (0.00-0.02) K/uL Neut # (Auto) (1.4-6.5) K/uL Lymph # (Auto) (1.2-3.4) K/uL Elliott # (Auto) (0.11-0.59) K/uL Eos # (Auto) (0-0.5) K/uL Baso # (Auto) (0-0.2) K/uL PT (9.0-12.0) Seconds INR (0.9-1.1) APTT 26.1 (21.0-31.0) Seconds PTT Ratio 1.0 Sodium (136-145) mmol/L Potassium (3.5-5.1) mmol/L Chloride (98-107) mmol/L Carbon Dioxide (21-32) mmol/L Anion Gap (3-11) BUN (7-18) mg/dl Creatinine (0.6-1.4) mg/dl Est Cr Clr Drug Dosing ml/min Est GFR ( Amer) Est GFR (Non-Af Amer) BUN/Creatinine Ratio (10-20) Glucose (70-99) mg/dl Calcium (8.5-10.1) mg/dl Total Bilirubin (0.2-1) mg/dl AST (15-37) U/L ALT (12-78) U/L Alkaline Phosphatase (45-117) U/L Ammonia 42.0 H (11-32) umol/L Total Protein (6.4-8.2) gm/dl Albumin (3.4-5.0) gm/dl Globulin (2.5-4.0) gm/dl Albumin/Globulin Ratio (0.9-2) Urine Color [place] Urine Appearance Cloudy H (Clear) Urine pH 5.5 (4.5-7.5) Ur Specific [place] 1.026 (1.000-1.030) Urine Protein Trace H (Negative) Urine Glucose (UA) Negative (Negative) Urine Ketones Trace H (Negative) Urine Blood 3+ H (Negative) Urine Nitrite Positive H (Negative) Urine Bilirubin 1+ H (Negative) Urine Urobilinogen Negative (Negative) Ur Leukocyte Esterase 1+ H (Negative) Urine WBC (Auto) 5-10 H (0-5) /hpf Urine RBC (Auto) >30 H (0-4) /hpf U Hyaline Cast (Auto) 1-5 (0-5) /lpf U Epithel Cells (Auto) 10-20 H (0-5) /lpf Urine Bacteria (Auto) Negative (Negative) Urine Yeast Present H (None Prsent) Peritoneal Color Peritoneal Appearance Peritoneal WBC (0-300) /ul Peritoneal RBC /uL Mononuclear WBCs % % Polynuclear WBCs % % Peritoneal Tot Protein g/dl Peritoneal Albumin g/dl 05/27/18 05/27/18 05/27/18 Range/Units 05:08 05:08 Unknown WBC 9.95 (4.8-10.8) K/uL RBC 3.29 L (4.7-6.1) M/uL Hgb 12.1 L (14.0-18.0) g/dL Hct 34.5 L (42-52) % MCV 104.9 H (80-100) fL MCH 36.8 H (25-34) pg MCHC 35.1 (32-36) g/dL RDW Std Deviation 51.8 H (36.4-46.3) fL RDW Coeff of Mitchell 13.6 (11.5-14.5) % Plt Count 188 (130-400) K/uL MPV 9.6 (7.4-10.4) fL Immature Gran % (Auto) % Neut % (Auto) % Lymph % (Auto) % Elliott % (Auto) % Eos % (Auto) % Baso % (Auto) % Immature Gran # (Auto) (0.00-0.02) K/uL Neut # (Auto) (1.4-6.5) K/uL Lymph # (Auto) (1.2-3.4) K/uL Elliott # (Auto) (0.11-0.59) K/uL Eos # (Auto) (0-0.5) K/uL Baso # (Auto) (0-0.2) K/uL PT (9.0-12.0) Seconds INR (0.9-1.1) APTT (21.0-31.0) Seconds PTT Ratio Sodium 132 L (136-145) mmol/L Potassium 4.2 (3.5-5.1) mmol/L Chloride 101 (98-107) mmol/L Carbon Dioxide 25 (21-32) mmol/L Anion Gap 7.0 (3-11) BUN 19 H (7-18) mg/dl Creatinine 1.07 (0.6-1.4) mg/dl Est Cr Clr Drug Dosing 63.9 ml/min Est GFR ( Amer) 87.0 Est GFR (Non-Af Amer) 75.1 BUN/Creatinine Ratio 17.9 (10-20) Glucose 88 (70-99) mg/dl Calcium 8.4 L (8.5-10.1) mg/dl Total Bilirubin 2.9 H (0.2-1) mg/dl AST 41 H (15-37) U/L ALT 23 (12-78) U/L Alkaline Phosphatase 108 (45-117) U/L Ammonia (11-32) umol/L Total Protein 7.9 (6.4-8.2) gm/dl Albumin 2.1 L (3.4-5.0) gm/dl Globulin 5.8 H (2.5-4.0) gm/dl Albumin/Globulin Ratio 0.4 L (0.9-2) Urine Color Urine Appearance (Clear) Urine pH (4.5-7.5) Ur Specific [place] (1.000-1.030) Urine Protein (Negative) Urine Glucose (UA) (Negative) Urine Ketones (Negative) Urine Blood (Negative) Urine Nitrite (Negative) Urine Bilirubin (Negative) Urine Urobilinogen (Negative) Ur Leukocyte Esterase (Negative) Urine WBC (Auto) (0-5) /hpf Urine RBC (Auto) (0-4) /hpf U Hyaline Cast (Auto) (0-5) /lpf U Epithel Cells (Auto) (0-5) /lpf Urine Bacteria (Auto) (Negative) Urine Yeast (None Prsent) Peritoneal Color Peritoneal Appearance Peritoneal WBC (0-300) /ul Peritoneal RBC /uL Mononuclear WBCs % % Polynuclear WBCs % % Peritoneal Tot Protein 2.0 g/dl Peritoneal Albumin 0.7 g/dl 05/27/18 05/27/18 Range/Units Unknown Unknown WBC (4.8-10.8) K/uL RBC (4.7-6.1) M/uL Hgb (14.0-18.0) g/dL Hct (42-52) % MCV (80-100) fL MCH (25-34) pg MCHC (32-36) g/dL RDW Std Deviation (36.4-46.3) fL RDW Coeff of [place] (11.5-14.5) % Plt Count (130-400) K/uL MPV (7.4-10.4) fL Immature Gran % (Auto) % Neut % (Auto) % Lymph % (Auto) % Elliott % (Auto) % Eos % (Auto) % Baso % (Auto) % Immature Gran # (Auto) (0.00-0.02) K/uL Neut # (Auto) (1.4-6.5) K/uL Lymph # (Auto) (1.2-3.4) K/uL Elliott # (Auto) (0.11-0.59) K/uL Eos # (Auto) (0-0.5) K/uL Baso # (Auto) (0-0.2) K/uL PT (9.0-12.0) Seconds INR (0.9-1.1) APTT (21.0-31.0) Seconds PTT Ratio Sodium (136-145) mmol/L Potassium (3.5-5.1) mmol/L Chloride (98-107) mmol/L Carbon Dioxide (21-32) mmol/L Anion Gap (3-11) BUN (7-18) mg/dl Creatinine (0.6-1.4) mg/dl Est Cr Clr Drug Dosing ml/min Est GFR ( Amer) Est GFR (Non-Af Amer) BUN/Creatinine Ratio (10-20) Glucose (70-99) mg/dl Calcium (8.5-10.1) mg/dl Total Bilirubin (0.2-1) mg/dl AST (15-37) U/L ALT (12-78) U/L Alkaline Phosphatase (45-117) U/L Ammonia (11-32) umol/L Total Protein (6.4-8.2) gm/dl Albumin (3.4-5.0) gm/dl Globulin (2.5-4.0) gm/dl Albumin/Globulin Ratio (0.9-2) Urine Color Urine Appearance (Clear) Urine pH (4.5-7.5) Ur Specific [place] (1.000-1.030) Urine Protein (Negative) Urine Glucose (UA) (Negative) Urine Ketones (Negative) Urine Blood (Negative) Urine Nitrite (Negative) Urine Bilirubin (Negative) Urine Urobilinogen (Negative) Ur Leukocyte Esterase (Negative) Urine WBC (Auto) (0-5) /hpf Urine RBC (Auto) (0-4) /hpf U Hyaline Cast (Auto) (0-5) /lpf U Epithel Cells (Auto) (0-5) /lpf Urine Bacteria (Auto) (Negative) Urine Yeast (None Prsent) Peritoneal Color YELLOW Peritoneal Appearance CLEAR Peritoneal WBC 148 (0-300) /ul Peritoneal RBC < 3000 /uL Mononuclear WBCs % 73.5 % Polynuclear WBCs % 26.5 % Peritoneal Tot Protein Cancelled g/dl Peritoneal Albumin g/dl Blood Pressure Blood Pressure Findings: Normal blood pressure MDM Narrative Differential diagnosis: Liver failure, ascites, incarcerated hernia, chronic pain, decompensation, infectious etiology, among others This patient is a 62-year-old male presents to the emergency department with severe abdominal distention and pain as noted above. 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 On exam, he did have severe distention. The hernia was reducible. Lab work is fairly unremarkable. Mild elevation in the ammonia, however he is neurologically inta ct. Due to the fact that the patient does not have insurance, he returns to the emergency department for his second visit to have a paracentesis performed in the last 2 weeks. It was felt that hospitalist consultation was warranted given the fact that the patient does not have a plan for further treatment. He also may benefit from a palliative care consult. Impression & Plan Ascites of liver Discharge Plan Visit Data *Final* Discharge Date/Time: 05/26/18 16:01 Chief Complaint: Abdominal Pain Stated Complaint: EXTREME TROUBLE BREATHING, ASCITIES Other Complaint: Shortness of Breath/Dyspnea ED Provider: Jelani Weinberg ED Midlevel Provider: Shital Fields Discharge Problem: Ascites of liver Patient Disposition: Admitted As Inpatient Discharge Instructions Interventions: ED Discharge Assessment Last Done: 05/26/18 16:01
[2018-05-26] MEDS ORDERED: POLYETHYLENE (MIRALAX) 17 GM PACK PO PRN (15:12)
--- NOTE | 2018-05-26 15:22 | History & Physical Report ---
Date of Service May 26, 2018 Assessment & Plan (1) Decompensation of cirrhosis of liver: (2) Ascites of liver: This is a 62yo M with a PMH of cirrhosis with ascites (2/2 etoh, Hep C), h/o alcohol abuse, tobacco use disorder who presents to ED with abdominal pain x 2 days and was found to have decompensated liver cirrhosis. -In setting of shelter alcohol use, chronic hepatitis C -Has ascites and mild lower abdominal pain. No confusion, hemetemesis or bleeding per rectum -Required abdominal paracentesis twice in the past 6 months, most recently with 5L removed on 05/12 -Was scheduled for liver transplant evaluation in [place] but had to reschedule due to lack of insurance/denial of medical assistance. Planning to reach out once insured (July,) -No fever, leukocytosis or significant abdominal pain, so will hold off on empiric antibiotics for SBP for now -US guided paracentesis both diagnostic and therapeutic scheduled for tomorrow with radiology -Pain control, low sodium diet, continue oral diuretics -Routine GI consult, case mgmt consult (3) Alcohol use disorder: Last drink was 2 weeks ago -Counseled on importance of continued cessation in setting of cirrhosis and hope for future liver transplant -Continue daily thiamine, folic acid and multivitamin (4) Tobacco use disorder: Decreased to smoking 1-5 cigarettes per day, trying to quit -Nicotine patch ordered DVT Ppx: SCDs due to scheduled paracentesis tomorrow Code status: FULL per discussion with patient PCP: Gavi Dispo: Admitted to [facility]. Discharge planning ordered. Patient seen in collaboration with Dr. Mckinley. Please see addendum. History of Present Illness Chief Complaint: abdominal fullness Primary Care Provider: Steve Gatica MD This is a 62yo M with a PMH of cirrhosis with ascites (2/2 etoh, Hep C), h/o alcohol abuse, tobacco use disorder who presents to ED with abdominal pain x 2 days. Has noted that abdomen has continued to feel more full since last paracentesis 2 weeks ago. Endorses sharp 5/10 lower abdominal pains that are made worse with movement. Has history of ascites and has required abdominal paracentesis twice in the past 6 months. Was recently seen at the end of April and underwent a paracentesis in the ED with 5 L drained and was admitted to medicine for further management. Did not follow-up with primary care or GI following hospital discharge due to financial problems and lack of insurance. Per fikrysten, patient will have insurance again starting July 13 and they plan to discuss possible liver transplant in [place]. Was last seen in GI clinic in November 2017 and underwent EGD to evaluate for esophageal varices--was found to have normal esophagus and portal hypertensive gastropathy. Last drink was 2 weeks ago. Continues to smoke a few cigarettes daily but is trying to quit. Denies any fever, chills, confusion, nausea, vomiting, hematemesis, chest pain, shortness of breath, bleeding per rectum or bilateral lower extremity edema. Patient was constipated for 2 days and took a laxative, resulting in loose stool today. Has been taking Lasix 40 mg and spironolactone 100 mg regularly for the last week. Allergies Allergy/AdvReac Type Severity Reaction Status Date / Time iodine Allergy Unknown SHELLFISH Verified 05/26/18 12:30 shellfish derived Allergy Unknown Verified 05/26/18 12:30 Home Medications Home Medications Medication Instructions Recorded Confirmed Type folic acid 1 mg PO QAM 30 Days #30 tab 05/12/18 05/26/18 Rx furosemide 40 mg PO QAM 30 Days #30 tab 05/12/18 05/26/18 Rx spironolactone 100 mg PO QAM 30 Days #30 tab 05/12/18 05/26/18 Rx thiamine HCl (vitamin B1) [Vitamin 100 mg PO QAM 30 Days #30 tab 05/12/18 05/26/18 Rx B-1] multivitamin 1 tab PO QAM 05/26/18 05/26/18 History Past Med/Surg History Medical History 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) Alcohol use disorder (Chronic) Tobacco use disorder (Chronic) Hepatitis C (Chronic) Ascites (Acute) Decompensation of cirrhosis of liver (Acute) etoh, chronic HCV Surgical History History of esophagogastroduodenoscopy (EGD) (Chronic) Social History Preferred Language: Pashto Beliefs That Will Affect Care: None marital status: Current Living Situation: Significant Other current occupational status: unemployed Other Information That Helps Us Care for You: No Feels Safe at Home: Yes Smoking Status: Current some day smoker Hx Alcohol Use: Yes Hx Substance Use: No Review of Systems All systems reviewed & are unremarkable except as noted in HPI & below Physical Exam Vital Signs (Past 24 Hours): Last Vital Signs Temp 36.6 C 05/26/18 11:22 Pulse 82 05/26/18 15:05 Resp 18 05/26/18 15:05 BP 106/79 05/26/18 15:05 Pulse Ox 94 05/26/18 15:05 Physical Exam: General Appearance: WD/WN, appears chronically ill, resting comfortably Head: normocephalic, atraumatic Eyes: normal inspection, PERRL, EOMI ENT: hearing grossly normal, pharynx normal (moist mucous membranes) Neck: supple, no JVD, no adenopathy Respiratory/Chest: lungs clear to auscultation. No wheezes, rales or rhonci. No respiratory distress or accessory muscle use Cardiovascular: regular rate, rhythm, no murmur, normal peripheral pulses Abdomen/GI: Protuberant, firm abdomen with + fluid wave. Normal bowel sounds. Mild TTP in LLQ, RLQ but no guarding. Extremities/Musculoskelatal: normal inspection, no calf tenderness, normal capillary refill, no pedal edema Neurologic/Psych: alert, normal mood/affect, oriented x 3 Skin: warm/dry, + mild jaundice Results & Data Laboratory Results Short CBC 05/26/18 Range/Units 12:15 WBC 9.01 (4.8-10.8) K/uL Hgb 14.0 (14.0-18.0) g/dL Hct 39.0 L (42-52) % Plt Count 185 (130-400) K/uL BMP 05/26/18 12:15 Sodium 135 L Potassium 4.1 Chloride 103 Carbon Dioxide 28 BUN 18 Creatinine 1.05 Glucose 105 H Calcium 8.6 Liver Function 05/26/18 Range/Units 12:15 Total Bilirubin 2.2 H (0.2-1) mg/dl AST 41 H (15-37) U/L ALT 23 (12-78) U/L Alkaline Phosphatase 121 H (45-117) U/L Albumin 2.1 L (3.4-5.0) gm/dl Supervising Physician Co-Signing Physician Notes I have seen and examined the patient and have discussed the case with the provider above. I agree with the assessment and plan as stated. The patient is a 62 yo alcoholic cirrhotic with h/o HCV who presents with decompensation and cirrhosis. He is not septic and he is hemodynamically stable. He reports a subacute building up of ascitic fluid over the past 3 weeks since his last paracentesis. He has a reducible umbilical hernia which is under pressure and appears to be the source of his abdominal discomfort. His care with GI at [facility] was stopped when he lost insurance, but he plans to resume care with them after Ramos 1. Mental status is clear and he does not appear jaundiced or in acute distress at this time. No changes in BMs. GI to see in am. Paracentesis ordered for am. Agree with plan above. DO Elías
[2018-05-26] MEDS ORDERED: FOLIC ACID 1 MG TAB PO STA (16:31)
[2018-05-26] MEDS ORDERED: SPIRONOLACTONE 100 MG TAB PO STA (16:32)
[2018-05-26] MEDS ORDERED: THIAMINE HCL 100 MG TAB PO STA (16:32)
[2018-05-26] MEDS ORDERED: FUROSEMIDE 40 MG TAB PO STA (16:33)
[2018-05-26] MEDS: NICOTINE 21 MG/24 HR TDSY TD SCH (17:56)
[2018-05-26] MEDS: TRAMADOL HCL 50 MG TABLET PO PRN (17:56)
[2018-05-26] MEDS ORDERED: ACETAMINOPHEN 500 MG TAB PO PRN (18:51)
[2018-05-26] MEDS: MoRPHine SULFATE 4 MG/ML 1 ML CARP\\VIAL IV PRN ×2 (19:08→23:18)
[2018-05-26 22:12] LABS: Appearance Urine Cloudy (Clear); Bacteria Urine Automated Negative (Negative); Blood Urine 3+ (Negative); Color Urine Orange; Glucose Urine UA Negative (Negative); Ketones Urine Trace (Negative); Leukocyte Esterase Urine 1+ (Negative); Nitrite Urine Positive (Negative); Protein Urine Trace (Negative); Specific Gravity Urine 1.026 (1.000-1.030); Urobilinogen Urine Negative (Negative); pH Urine 5.5 (4.5-7.5)
[2018-05-26 22:22] LABS: Bilirubin Urine 1+ (Negative); Ictotest Urine Positive (Negative)
[2018-05-26 22:29] LABS: RBC Urine Automated >30 /hpf (0-4)
[2018-05-27 05:41] LABS: Hematocrit (blood only) 34.5 % (42-52); Hemoglobin 12.1 g/dL (14.0-18.0); Mean Corpuscular Hgb Conc 35.1 g/dL (32-36); Mean Corpuscular Volume 104.9 fL (80-100); Mean Platelet Volume 9.6 fL (7.4-10.4); Platelet Count 188 K/uL (130-400); RDW Coefficient of Variation 13.6 % (11.5-14.5); RDW Standard Deviation 51.8 fL (36.4-46.3); Red Blood Count 3.29 M/uL (4.7-6.1); White Blood Count 9.95 K/uL (4.8-10.8)
[2018-05-27 06:07] LABS: Albumin Level 2.1 gm/dl (3.4-5.0); BUN Creatinine Ratio 17.9 (10-20); Calcium 8.4 mg/dl (8.5-10.1); Creatinine Clr Calc Pharmacy 63.9 ml/min; Est GFR (Non-African American) 75.1; Potassium 4.2 mmol/L (3.5-5.1)
[2018-05-27 06:19] LABS: Albumin Globulin Ratio 0.4 (0.9-2); Bilirubin,Total 2.9 mg/dl (0.2-1); Globulin 5.8 gm/dl (2.5-4.0); Total Protein 7.9 gm/dl (6.4-8.2)
[2018-05-27] MEDS: TRAMADOL HCL 50 MG TABLET PO PRN (08:04)
[2018-05-27] MEDS: NICOTINE 21 MG/24 HR TDSY TD SCH (08:05)
[2018-05-27] MEDS ORDERED: FUROSEMIDE 40 MG TAB PO SCH (09:00)
[2018-05-27] MEDS ORDERED: THIAMINE HCL 100 MG TAB PO SCH (09:00)
[2018-05-27] MEDS ORDERED: SPIRONOLACTONE 100 MG TAB PO SCH (09:00)
[2018-05-27] MEDS ORDERED: MULTIVITAMIN TAB PO SCH (09:00)
[2018-05-27] MEDS ORDERED: FOLIC ACID 1 MG TAB PO SCH (09:00)
[2018-05-27] MEDS: MoRPHine SULFATE 4 MG/ML 1 ML CARP\\VIAL IV PRN (09:18)
[2018-05-27 12:06] LABS: Albumin Peritoneal Fluid 0.7 g/dl
[2018-05-27 12:17] LABS: Appearance Peritoneal Fluid CLEAR; Color Peritoneal Fluid YELLOW; Mononuclear WBC Peritoneal 73.5 %; Polynuclear WBC Peritoneal 26.5 %; RBC Peritoneal Fluid (A) < 3000 /uL; WBC Peritoneal Fluid (A) 148 /ul (0-300)
--- NOTE | 2018-05-27 12:40 | Ultrasound Report ---
PARACENTESIS UNDER ULTRASOUND GUIDANCE CLINICAL HISTORY: Cirrhosis and ascites. PROCEDURE: The risks, benefits, and alternatives to the procedure were discussed with the patient who voiced understanding. Written informed consent was obtained. Following real-time ultrasound localiza tion of a suitable pocket of fluid in the right lower quadrant, the abdomen was prepped and draped in the usual sterile fashion. The skin and soft tissues were anesthetized with 1% lidocaine. The sheath ed paracentesis was inserted and approximately 7 liters of straw-colored ascitic fluid was removed by vacuum suction. A sample was sent for laboratory analysis. The procedure was well tolerated and with out immediate complication. The patient left the department in satisfactory condition. IMPRESSION: Successful ultrasound-guided paracentesis with removal of approximately 7 liters of ascit ic fluid. Electronically signed by: Ralf Sorto M.D. 05/27/2018 12:38 PM
[2018-05-27] MEDS ORDERED: ALBUMIN 25% 50 ML IV ONE ×2 (14:30→16:00)
--- NOTE | 2018-05-27 16:18 | Hospitalist Progress Note ---
Date of Service May 27, 2018 Assessment & Plan (1) Decompensation of cirrhosis of liver: (2) Ascites of liver: This is a 62yo M with a PMH of cirrhosis with ascites (2/2 etoh, Hep C), h/o alcohol abuse, tobacco use disorder who presents to ED with abdominal pain x 2 days and was found to have decompensated liver cirrhosis. in the setting of [facility] alcohol use, chronic hepatitis C with paracentesis done on 05/12 Was not taking his spironolactone and lasix S/P paracentesis done today where 7 L ascites fluid removed Ascites fluid did not indicate any evidence for SBP (WBC 148 and gram stain showed no organisms) Will hold on abx Received IV albumin Follow up with gastro as outpatient Continue lasix and spironolactone (Just filled the scripts) Follow a low salt diet and fluid restriction (3) Alcohol use disorder: Last drink was 2 weeks ago Counseling on alcohol cessation Hope to be a candidate for future liver transplant Continue daily thiamine, folic acid and multivitamin (4) Tobacco use disorder: Counseling on smoking cessation On Nicotine patch DVT Ppx: SCDs Code status: FULL Dispo: Follow up with Dr. Gatica on 06/03 @ 12:45 PM Follow up with gastroenterology (Please call to schedule follow appt) Subjective Pt was seen and examined Lying in bed with no distress Pt said that he feels much better He had paracentesis done where 7 liter ascites fluid removed Denies any chest pain, palpitation, dizziness and SOB Physical Exam Vital Signs (Past 24 Hours): Last Vital Signs Temp 36.8 C 05/27/18 15:48 Pulse 77 05/27/18 15:48 Resp 18 05/27/18 15:48 BP 97/63 L 05/27/18 15:48 Pulse Ox 93 05/27/18 15:48 Physical Exam: General- No acute distress Head- atraumatic Eyes- PERRL, EOMI, ENT- oropharynx clear Neck- supple, no JVD Lungs- clear to auscultation Heart- regular rhythm; no murmur Abdomen- normal bowel sounds, nontender, +ascites Extremities- no calf tenderness Neuro- alert, oriented x 3; PERRL, EOMI; no facial palsy; no dysarthria Skin- warm & dry
--- NOTE | 2018-06-04 07:34 | Discharge Summary ---
Date of Service May 27, 2018 Admission HPI Per Admitting Provider This is a 62yo M with a PMH of cirrhosis with ascites (2/2 etoh, Hep C), h/o alcohol abuse, tobacco use disorder who presents to ED with abdominal pain x 2 days. Has noted that abdomen has continued to feel more full since last paracentesis 2 weeks ago. Endorses sharp 5/10 lower abdominal pains that are made worse with movement. Has history of ascites and has required abdominal paracentesis twice in the past 6 months. Was recently seen at the end of April and underwent a paracentesis in the ED with 5 L drained and was admitted to medicine for further management. Did not follow-up with primary care or GI foll owing hospital discharge due to financial problems and lack of insurance. Per jasmina, patient will have insurance again starting July 13 and they plan to discuss possible liver transplant in [place]. Was last seen in GI clinic in November 2017 and underwent EGD to evaluate for esophageal varices--was found to have normal esophagus and portal hypertensive gastropathy. Last drink was 2 weeks ago. Continues to smoke a few cigarettes daily but is trying to quit. Denies any fever, chills, confusion, nausea, vomiting, hematemesis, chest pain, shortness of breath, bleeding per rectum or bilateral lower extremity edema. Patient was constipated for 2 days and took a laxative, resulting in loose stool today. Has been taking Lasix 40 mg and spironolactone 100 mg regularly for the last week. Admission Exam Per Admitting Provider General Appearance: WD/WN, appears chronically ill, resting comfortably Head: normocephalic, atraumatic Eyes: normal inspection, PERRL, EOMI ENT: hearing grossly normal, pharynx normal (moist mucous membranes) Neck: supple, no JVD, no adenopathy Respiratory/Chest: lungs clear to auscultation. No wheezes, rales or rhonci. No respiratory distress or accessory muscle use Cardiovascular: regular rate, rhythm, no murmur, normal peripheral pulses Abdomen/GI: Protuberant, firm abdomen with + fluid wave. Normal bowel sounds. Mild TTP in LLQ, RLQ but no guarding. Extremities/Musculoskelatal: normal inspection, no calf tenderness, normal capillary refill, no pedal edema Neurologic/Psych: alert, normal mood/affect, oriented x 3 Skin: warm/dry, + mild jaundice Principal Diagnosis Ascites of liver/ Recurrent Ascites Alcohol use disorder Tobacco abuse Discharge Exam General- No acute distress Head- atraumatic Eyes- PERRL, EOMI, ENT- oropharynx clear Neck- supple, no JVD Lungs- clear to auscultation Heart- regular rhythm; no murmur Abdomen- normal bowel sounds, nontender, +ascites Extremities- no calf tenderness Neuro- alert, oriented x 3; PERRL, EOMI; no facial palsy; no dysarthria Skin- warm & dry Discharge Data Allergies Allergy/AdvReac Type Severity Reaction Status Date / Time iodine Allergy Unknown SHELLFISH Verified 05/26/18 12:30 shellfish derived Allergy Unknown Verified 05/26/18 12:30 Consultations 05/26/18 14:16 ED Decision to Admit Stat 05/26/18 15:14 Consult Case Management - Discharge Planning Routine Ordered Studies 05/27/18 US paracentesis abd w/image Routine PARACENTESIS UNDER ULTRASOUND GUIDANCE CLINICAL HISTORY: Cirrhosis and ascites. PROCEDURE: The risks, benefits, and alternatives to the procedure were discussed with the patient who voiced understanding. Written informed consent was obtained. Following real-time ultrasound localization of a suitable pocket of fluid in the right lower quadrant, the abdomen was prepped and draped in the usual sterile fashion. The skin and soft tissues were anesthetized with 1% lidocaine. The sheathed paracentesis was inserted and approximately 7 liters of straw-colored ascitic fluid was removed by vacuum suction. A sample was sent for laboratory analysis. The procedure was well tolerated and without immediate complication. The patient left the department in satisfactory condition. IMPRESSION: Successful ultrasound-guided paracentesis with removal of approximately 7 liters of ascitic fluid. Electronically signed by: Ralf Sorto M.D. 05/27/2018 12:38 PM Dictated: 05/27/18 1237 Transcribed: 05/27/18 1237 Hospital Course (1) Decompensation of cirrhosis of liver: (2) Ascites of liver: This is a 62yo M with a PMH of cirrhosis with ascites (2/2 etoh, Hep C), h/o alcohol abuse, tobacco use disorder who presents to ED with abdominal pain x 2 days and was found to have decompensated liver cirrhosis. 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 with paracentesis done on 05/12 Was not taking his spironolactone and lasix S/P paracentesis done today where 7 L ascites fluid removed Ascites fluid did not indicate any evidence for SBP (WBC 148 and gram stain showed no organisms) Will hold on abx Received IV albumin Follow up with gastro as outpatient Continue lasix and spironolactone (Just filled the scripts) Follow a low salt diet and fluid restriction (3) Alcohol use disorder: Last drink was 2 weeks ago Counseling on alcohol cessation Hope to be a candidate for future liver transplant Continue daily thiamine, folic acid and multivitamin (4) Tobacco use disorder: Counseling on smoking cessation On Nicotine patch DVT Ppx: SCDs Code status: FULL Dispo: Follow up with Dr. Gatica on 06/03 @ 12:45 PM Follow up with gastroenterology (Please call to schedule follow appt) Total Time Total Time Spent Total Time Spent (In Minutes): 35 minutes Total Time Includes: Examination of the Patient, Discharge Planning, Medication Reconciliation, Communication With Other Providers and Other Discharge Plan Discharge Items Patient Disposition: Home - Self-Care Reason For Visit: ASCITES, LOWER ABD PAIN Discharge Diagnosis: Ascites of liver/ Recurrent Ascites Alcohol use disoder Tobacco abuse Discharge Goals: Decrease discomfort, Improve disease control, Improve function and Increase independence Activity: Resume your previous activity Non-emergency contact: Primary Care Provider Call non-emergency contact if: you have any medication questions, your symptoms worsen and your temperature is above 101 Follow-up/Referrals: Steve Gatica MD [Primary Care Provider] - Diet: Low Sodium (2gm) Addtl Provider Instructions: Follow up with your primary care provider Dr. Gatica on 06/03 @ 12:45 PM Follow up with gastroenterology (Please call to schedule follow appt) Follow up a low salt diet Fluid restriction 1.5L Prescriptions: Continued multivitamin Tablet 1 tab PO QAM RF: 0 furosemide 40 mg Tablet 40 mg PO QAM 30 Days Qty: 30 RF: 0 spironolactone 100 mg Tablet 100 mg PO QAM 30 Days Qty: 30 RF: 0 thiamine HCl (vitamin B1) [Vitamin B-1] 100 mg Tablet 100 mg PO QAM 30 Days Qty: 30 RF: 0 folic acid 1 mg Tablet 1 mg PO QAM 30 Days Qty: 30 RF: 0 Stand-Alone Forms: Call Back Authorization, My [facility] Discharge Orders: Discharge Order (Routine); Ordered 05/27/18 Ordered By: Guillermo Aguilar Admission Data Admit Date/Time: 05/26/18 15:12 Attending Provider: Guillermo Aguilar Admit Provider: Michelle Mckinley Primary Care Provider: Steve Gatica Other Providers: Michelle Mckinley Service: Telemetry Medical Other Interventions: Discharge Summary Assessment (RN) Last Done: 05/27/18 17:00 DC Date/Time DO NOT enter until pt leaves facility: 05/27/18 17:15
== END 2018-05-27 17:15 | disposition home or self-care (01) | DRG 433 ==
LOC: ED 11:16 → 2N 15:12
DX: Z59.7 Insufficient social insurance and welfare support; Z79.899 Other long term (current) drug therapy; Z91.14 Patient's other noncompliance with medication regimen; F17.210 Nicotine dependence, cigarettes, uncomplicated; Z91.041 Radiographic dye allergy status; K42.9 Umbilical hernia without obstruction or gangrene; F10.188 Alcohol abuse with other alcohol-induced disorder; K72.90 Hepatic failure, unspecified without coma; B18.2 Chronic viral hepatitis C; K70.31 Alcoholic cirrhosis of liver with ascites; Z91.013 Allergy to seafood

== ENCOUNTER 2018-07-29 12:57 | Inpatient (IN) ==
--- NOTE | 2018-07-29 13:53 | XRay Report ---
XR chest 1V portable CLINICAL HISTORY: 62 years-old Male presenting with Sepsis. TECHNIQUE: Portable upright AP view of the chest was obtained. COMPARISON: None. FINDINGS: Cardiomediastinal silhouette normal. Diffuse reticular opacities with coarsened lung markings. No ple ural effusion or pneumothorax. Osseous structures normal. Upper abdomen normal. IMPRESSION: 1. Chronic lung disease suggested by diffuse coarsened lung markings. No focal infiltrate to suggest pneumonia. Electronically signed by: Miguel Barnes M.D. 07/29/2018 1:52 PM
[2018-07-29 14:11] LABS: Basophils # (auto) 0.08 K/uL (0-0.2); Basophils % (auto) 1.3 %; Eosinophils # (auto) 0.08 K/uL (0-0.5); Eosinophils % (auto) 1.3 %; Hematocrit (blood only) 32.8 % (42-52); Immature Granulocytes # (auto) 0.01 K/uL (0.00-0.02); Immature Granulocytes % (auto) 0.2 %; Lymphocytes # (auto) 0.41 K/uL (1.2-3.4); Lymphocytes % (auto) 6.7 %; Mean Corpuscular Hgb Conc 36.6 g/dL (32-36); Mean Corpuscular Volume 97.6 fL (80-100); Mean Platelet Volume 8.9 fL (7.4-10.4); Monocytes # (auto) 1.22 K/uL (0.11-0.59); Monocytes % (auto) 19.9 %; Neutrophils # (auto) 4.34 K/uL (1.4-6.5); Neutrophils % (auto) 70.6 %; Platelet Count 157 K/uL (130-400); RDW Coefficient of Variation 14.4 % (11.5-14.5); RDW Standard Deviation 51.5 fL (36.4-46.3); Red Blood Count 3.36 M/uL (4.7-6.1); White Blood Count 6.14 K/uL (4.8-10.8)
[2018-07-29 14:24] LABS: Base Excess VBG 0.1 mEq/L; Oxygen Saturation VBG 66.1 %; pH VBG 7.51 (7.36-7.41)
[2018-07-29 14:29] LABS: Alanine Aminotransferase 21 U/L (12-78); Albumin Level 2.1 gm/dl (3.4-5.0); Aspartate Aminotransferase 30 U/L (15-37); BUN Creatinine Ratio 16.5 (10-20); Blood Urea Nitrogen 13 mg/dl (7-18); Calcium 8.6 mg/dl (8.5-10.1); Carbon Dioxide 24 mmol/L (21-32); Chloride 100 mmol/L (98-107); Creatinine Clr Calc Pharmacy 87.6 ml/min; Est GFR (African American) 113.7; Est GFR (Non-African American) 98.1; Glucose 101 mg/dl (70-99); Magnesium 2.1 mg/dl (1.8-2.4); Sodium 131 mmol/L (136-145)
[2018-07-29 14:34] LABS: Albumin Globulin Ratio 0.4 (0.9-2); Alkaline Phosphatase 99 U/L (45-117); Bilirubin,Total 2.2 mg/dl (0.2-1); Globulin 5.7 gm/dl (2.5-4.0); Phosphorus 3.5 mg/dl (2.5-4.9); Total Protein 7.8 gm/dl (6.4-8.2); Troponin I < 0.015 ng/ml (0-0.045)
[2018-07-29 14:35] LABS: INR 1.4 (0.9-1.1); Partial Thromboplastin Ratio 1.1; Partial Thromboplastin Time 29.2 Seconds (21.0-31.0)
[2018-07-29] MEDS ORDERED: LACTULOSE SYRUP 20 GM/30 ML UDC PO STA (16:31)
--- NOTE | 2018-07-29 17:02 | Emergency Department Note ---
Entered by Shyla Dennis acting as a scribe for History of Present Illness General Chief complaint: Confusion Stated complaint: CONFUSION,CANT SEE Time Seen by Provider: 07/29/18 13:31 Source: patient and family Mode of arrival: ambulatory Limitations: altered mental status (confusion) History of Present Illness Onset (ago): day(s) (today) Location: head Maximum Pain Intensity: 0 Associated symptoms: + confusion, + weakness (The patient complains of lethargy.) and + other (The patient denies congestion and dizziness. ); no cough, no fever/chills and no headaches The patient is a 62 year old male with a history of cirrhosis, hepatitis, hernia, and abdominal ascites who presents to the ED with complaints of now resolved confusion that onset today. The patient presents with his fianc�. The patient states that he had a bowel movement this morning but did not have one prior to this morning for the past 3 weeks. The patient complains of lethargy and confusion. The patient denies fever, chills, cough, congestion, headaches, and dizziness. The patient and family note that he is able to walk but has been unsteady, which is a new issue. The patient states that he has not had alcohol in 3 months. He notes that his abdomen was drained 2 weeks ago. 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) Alcohol use disorder (Chronic) Tobacco use disorder (Chronic) Hepatitis C (Chronic) Surgical History History of esophagogastroduodenoscopy (EGD) (Chronic) Family History Father Cancer Mother Diabetes Kidney disease Social History Preferred Language: Brazilian Communication Ability: Effective Visual Impairment: No Limitations Hearing Ability: Normal Beliefs That Will Affect Care: None marital status: Current Living Situation: Significant Other current occupational status: unemployed Other Information That Helps Us Care for You: No Feels Safe at Home: Yes Safety Concerns: Feels Safe At This Time Smoking Status: Heavy tobacco smoker Tobacco Type: cigarettes Cigarettes Per Day: 20 Second Hand Exposure: No Hx Alcohol Use: No Hx Substance Use: No Review of Systems See HPI for pertinent positives & negatives. and A total of 10 systems reviewed and were otherwise negative Physical Exam Vital Signs Vital Signs - 24 hr 07/29/18 13:03 07/29/18 13:29 07/29/18 13:30 Temperature 36.9 C Temperature Source Oral Sepsis Recent Fever Within 48 Hours No Sepsis New/Unexplained Change in Mental Status No Sepsis Action Taken by Nursing No Action Required Pulse Rate 82 75 Pulse Rate from SpO2 Sensor 77 Respiratory Rate 17 19 Respiratory Effort / Characteristics Non-Labored Respiratory Depth Normal Respiratory Pattern Regular Blood Pressure 115/75 101/70 Blood Pressure Mean 88 80 Blood Pressure Position Sitting Pulse Oximetry 98 98 96 Oxygen Delivery Method Room Air Room Air 07/29/18 13:36 07/29/18 13:40 07/29/18 13:50 Temperature Temperature Source Sepsis Recent Fever Within 48 Hours Sepsis New/Unexplained Change in Mental Status Sepsis Action Taken by Nursing Pulse Rate 80 76 73 Pulse Rate from SpO2 Sensor 79 Respiratory Rate 14 23 19 Respiratory Effort / Characteristics Respiratory Depth Respiratory Pattern Blood Pressure Blood Pressure Mean Blood Pressure Position Pulse Oximetry 95 Oxygen Delivery Method 07/29/18 14:00 07/29/18 14:01 07/29/18 14:02 Temperature Temperature Source Sepsis Recent Fever Within 48 Hours Sepsis New/Unexplained Change in Mental Status Sepsis Action Taken by Nursing Pulse Rate 71 67 70 Pulse Rate from SpO2 Sensor Respiratory Rate 21 17 24 Respiratory Effort / Characteristics Respiratory Depth Respiratory Pattern Blood Pressure 119/76 Blood Pressure Mean 90 Blood Pressure Position Pulse Oximetry Oxygen Delivery Method 07/29/18 14:10 07/29/18 14:20 07/29/18 14:30 Temperature Temperature Source Sepsis Recent Fever Within 48 Hours Sepsis New/Unexplained Change in Mental Status Sepsis Action Taken by Nursing Pulse Rate 68 72 68 Pulse Rate from SpO2 Sensor Respiratory Rate 17 18 14 Respiratory Effort / Characteristics Respiratory Depth Respiratory Pattern Blood Pressure 107/69 Blood Pressure Mean 81 Blood Pressure Position Pulse Oximetry Oxygen Delivery Method 07/29/18 14:31 07/29/18 14:40 07/29/18 14:50 Temperature Temperature Source Sepsis Recent Fever Within 48 Hours Sepsis New/Unexplained Change in Mental Status Sepsis Action Taken by Nursing Pulse Rate 69 75 73 Pulse Rate from SpO2 Sensor 73 Respiratory Rate 13 19 16 Respiratory Effort / Characteristics Respiratory Depth Respiratory Pattern Blood Pressure Blood Pressure Mean Blood Pressure Position Pulse Oximetry 93 Oxygen Delivery Method 07/29/18 15:00 07/29/18 15:01 07/29/18 15:10 Temperature Temperature Source Sepsis Recent Fever Within 48 Hours Sepsis New/Unexplained Change in Mental Status Sepsis Action Taken by Nursing Pulse Rate 72 69 76 Pulse Rate from SpO2 Sensor 72 70 Respiratory Rate 14 13 19 Respiratory Effort / Characteristics Respiratory Depth Respiratory Pattern Blood Pressure 99/75 L Blood Pressure Mean 83 Blood Pressure Position Pulse Oximetry 94 93 Oxygen Delivery Method 07/29/18 15:20 07/29/18 15:30 07/29/18 15:31 Temperature Temperature Source Sepsis Recent Fever Within 48 Hours Sepsis New/Unexplained Change in Mental Status Sepsis Action Taken by Nursing Pulse Rate 75 80 77 Pulse Rate from SpO2 Sensor Respiratory Rate 18 22 19 Respiratory Effort / Characteristics Respiratory Depth Respiratory Pattern Blood Pressure 113/77 Blood Pressure Mean 89 Blood Pressure Position Pulse Oximetry Oxygen Delivery Method 07/29/18 15:40 07/29/18 15:50 07/29/18 16:00 Temperature Temperature Source Sepsis Recent Fever Within 48 Hours Sepsis New/Unexplained Change in Mental Status Sepsis Action Taken by Nursing Pulse Rate 74 86 75 Pulse Rate from SpO2 Sensor Respiratory Rate 18 18 15 Respiratory Effort / Characteristics Respiratory Depth Respiratory Pattern Blood Pressure 108/69 Blood Pressure Mean 82 Blood Pressure Position Pulse Oximetry Oxygen Delivery Method 07/29/18 16:01 07/29/18 16:10 07/29/18 16:20 Temperature Temperature Source Sepsis Recent Fever Within 48 Hours Sepsis New/Unexplained Change in Mental Status Sepsis Action Taken by Nursing Pulse Rate 75 74 75 Pulse Rate from SpO2 Sensor Respiratory Rate 15 14 23 Respiratory Effort / Characteristics Respiratory Depth Respiratory Pattern Blood Pressure Blood Pressure Mean Blood Pressure Position Pulse Oximetry Oxygen Delivery Method 07/29/18 16:30 07/29/18 16:31 07/29/18 16:40 Temperature Temperature Source Sepsis Recent Fever Within 48 Hours Sepsis New/Unexplained Change in Mental Status Sepsis Action Taken by Nursing Pulse Rate 74 72 73 Pulse Rate from SpO2 Sensor Respiratory Rate 18 16 13 Respiratory Effort / Characteristics Respiratory Depth Respiratory Pattern Blood Pressure 102/75 Blood Pressure Mean 84 Blood Pressure Position Pulse Oximetry Oxygen Delivery Method 07/29/18 16:50 07/29/18 17:00 07/29/18 17:01 Temperature Temperature Source Sepsis Recent Fever Within 48 Hours Sepsis New/Unexplained Change in Mental Status Sepsis Action Taken by Nursing Pulse Rate 78 78 93 H Pulse Rate from SpO2 Sensor Respiratory Rate 20 24 20 Respiratory Effort / Characteristics Respiratory Depth Respiratory Pattern Blood Pressure 119/84 Blood Pressure Mean 95 Blood Pressure Position Pulse Oximetry Oxygen Delivery Method GENERAL: Mildly confused, awake, alert, in no distress HENT: Normocephalic, atraumatic. Oropharynx with dry mucous membranes and otherwise unremarkable. EYES: Normal conjunctiva. Sclera non-icteric. EOMI. No nystamgus. PEARRL. NECK: Supple. No nuchal rigidity. FROM. No JVD. RESPIRATORY: Clear to auscultation bilaterally. CARDIAC: Regular rate, normal rhythm. Extremities warm and well perfused. Pulses equal. ABDOMEN: Moderately distended abdomen but soft, non-tender. No rebound or guarding. No masses. RECTAL: Deferred. MUSCULOSKELETAL: Chest examination reveals no tenderness. The back is symmetrical on inspection without obvious abnormality. There is no CVA tenderness to palpation. No joint edema. LOWER EXTREMITIES: Calves are equal size bilaterally and non-tender. No edema. No discoloration. NEURO: Normal sensorium. No focal sensory or motor deficits noted. Moderate asterixis of bilateral upper extremities. SKIN: No rash or jaundice noted. Course 1333: Past medical records reviewed. The patient was evaluated in room C09. A complete history and physical examination was performed. 1646: I reviewed the patient's case with Izabela LOW [facility]. She will evaluate the patient for further management. Consultations Consultation #1: 1646: I reviewed the patient's case with Izabela LOW [facility]. She will evaluate the patient for further management. Time: 16:46 Administered Medications Ceftriaxone Sodium 2,000 mg/ (Dextrose) 70 mls @ 100 mls/hr IV DAILY@1815 [facility]; Protocol Stop: 07/31/18 18:14 Last Infusion: 07/29/18 19:31 Dose: 0 mls/hr Documented by: [id number] Admin: 07/29/18 18:25 Dose: 100 mls/hr Documented by: [id number] Lactulose (Chronulac) 30 gm PO TID VARUN Stop: 08/28/18 20:59 Last Admin: 07/29/18 21:01 Dose: 30 gm Documented by: [id number] Discontinued Medications Furosemide 20 mg/ Syringe 2 mls @ 4 mls/min IV ONE ONE Stop: 07/29/18 17:15 Last Admin: 07/29/18 19:31 Dose: Not Given Documented by: [id number] Lactulose (Chronulac) 30 gm PO NOW STA Stop: 07/29/18 16:32 Last Admin: 07/29/18 16:52 Dose: 30 gm Documented by: [id number] Medical Decision Making Differential Diagnosis Differential diagnoses: Metabolic, infection, hypo/hyperglycemia, electrolyte abnormalities, cardiac sources, intracerebral event, toxicologic, neurologic, as well as others were entertained. Medical Records Attestation: I reviewed the patient's medical records. Home Medications Current Medication List: was personally reviewed by me Laboratory Data Attestation: I reviewed the patient's lab results. Result diagrams: 07/29/18 14:00 07/29/18 14:00 Lab Results 07/29/18 07/29/18 07/29/18 Range/Units 14:00 14:00 14:00 WBC 6.14 (4.8-10.8) K/uL RBC 3.36 L (4.7-6.1) M/uL Hgb 12.0 L (14.0-18.0) g/dL Hct 32.8 L (42-52) % MCV 97.6 (80-100) fL MCH 35.7 H (25-34) pg MCHC 36.6 H (32-36) g/dL RDW Std Deviation 51.5 H (36.4-46.3) fL RDW Coeff of Mitchell 14.4 (11.5-14.5) % Plt Count 157 (130-400) K/uL MPV 8.9 (7.4-10.4) fL Immature Gran % (Auto) 0.2 % Neut % (Auto) 70.6 % Lymph % (Auto) 6.7 % Jefferson % (Auto) 19.9 % Eos % (Auto) 1.3 % Baso % (Auto) 1.3 % Immature Gran # (Auto) 0.01 (0.00-0.02) K/uL Neut # (Auto) 4.34 (1.4-6.5) K/uL Lymph # (Auto) 0.41 L (1.2-3.4) K/uL Jefferson # (Auto) 1.22 H (0.11-0.59) K/uL Eos # (Auto) 0.08 (0-0.5) K/uL Baso # (Auto) 0.08 (0-0.2) K/uL PT 14.0 H (9.0-12.0) Seconds INR 1.4 H (0.9-1.1) APTT 29.2 (21.0-31.0) Seconds PTT Ratio 1.1 VBG pH (7.36-7.41) VBG pCO2 (38-50) mmHg VBG pO2 mmHg VBG HCO3 mmol/L VBG O2 Saturation % VBG Base Excess mEq/L Barometric Pressure mm/Hg Sodium 131 L (136-145) mmol/L Potassium 4.0 (3.5-5.1) mmol/L Chloride 100 (98-107) mmol/L Carbon Dioxide 24 (21-32) mmol/L Anion Gap 8.0 (3-11) BUN 13 (7-18) mg/dl Creatinine 0.78 (0.6-1.4) mg/dl Est Cr Clr Drug Dosing 87.6 ml/min Est GFR ( Amer) 113.7 Est GFR (Non-Af Amer) 98.1 BUN/Creatinine Ratio 16.5 (10-20) Glucose 101 H (70-99) mg/dl Lactate (0.4-2.0) mmol/L Calcium 8.6 (8.5-10.1) mg/dl Phosphorus 3.5 (2.5-4.9) mg/dl Magnesium 2.1 (1.8-2.4) mg/dl Total Bilirubin 2.2 H (0.2-1) mg/dl Direct Bilirubin 1.0 H (0-0.2) mg/dl AST 30 (15-37) U/L ALT 21 (12-78) U/L Alkaline Phosphatase 99 (45-117) U/L Ammonia (11-32) umol/L Troponin I < 0.015 (0-0.045) ng/ml Total Protein 7.8 (6.4-8.2) gm/dl Albumin 2.1 L (3.4-5.0) gm/dl Globulin 5.7 H (2.5-4.0) gm/dl Albumin/Globulin Ratio 0.4 L (0.9-2) 07/29/18 07/29/18 07/29/18 Range/Units 14:00 14:00 14:12 WBC (4.8-10.8) K/uL RBC (4.7-6.1) M/uL Hgb (14.0-18.0) g/dL Hct (42-52) % MCV (80-100) fL MCH (25-34) pg MCHC (32-36) g/dL RDW Std Deviation (36.4-46.3) fL RDW Coeff of Mitchell (11.5-14.5) % Plt Count (130-400) K/uL MPV (7.4-10.4) fL Immature Gran % (Auto) % Neut % (Auto) % Lymph % (Auto) % Jefferson % (Auto) % Eos % (Auto) % Baso % (Auto) % Immature Gran # (Auto) (0.00-0.02) K/uL Neut # (Auto) (1.4-6.5) K/uL Lymph # (Auto) (1.2-3.4) K/uL Jefferson # (Auto) (0.11-0.59) K/uL Eos # (Auto) (0-0.5) K/uL Baso # (Auto) (0-0.2) K/uL PT (9.0-12.0) Seconds INR (0.9-1.1) APTT (21.0-31.0) Seconds PTT Ratio VBG pH 7.51 H (7.36-7.41) VBG pCO2 28 L (38-50) mmHg VBG pO2 32 mmHg VBG HCO3 22 mmol/L VBG O2 Saturation 66.1 % VBG Base Excess 0.1 mEq/L Barometric Pressure 731.6 mm/Hg Sodium (136-145) mmol/L Potassium (3.5-5.1) mmol/L Chloride (98-107) mmol/L Carbon Dioxide (21-32) mmol/L Anion Gap (3-11) BUN (7-18) mg/dl Creatinine (0.6-1.4) mg/dl Est Cr Clr Drug Dosing ml/min Est GFR ( Amer) Est GFR (Non-Af Amer) BUN/Creatinine Ratio (10-20) Glucose (70-99) mg/dl Lactate 1.7 (0.4-2.0) mmol/L Calcium (8.5-10.1) mg/dl Phosphorus (2.5-4.9) mg/dl Magnesium (1.8-2.4) mg/dl Total Bilirubin (0.2-1) mg/dl Direct Bilirubin (0-0.2) mg/dl AST (15-37) U/L ALT (12-78) U/L Alkaline Phosphatase (45-117) U/L Ammonia 114.3 H (11-32) umol/L Troponin I (0-0.045) ng/ml Total Protein (6.4-8.2) gm/dl Albumin (3.4-5.0) gm/dl Globulin (2.5-4.0) gm/dl Albumin/Globulin Ratio (0.9-2) Imaging Data Radiologist's Impression: Radiology results as stated below per my review and the radiologist's interpretation: XR chest 1V portable CLINICAL HISTORY: 62 years-old Male presenting with Sepsis. TECHNIQUE: Portable upright AP view of the chest was obtained. COMPARISON: None. FINDINGS: Cardiomediastinal silhouette normal. Diffuse reticular opacities with coarsened lung markings. No pleural effusion or pneumothorax. Osseous structures normal. Upper abdomen normal. IMPRESSION: 1. Chronic lung disease suggested by diffuse coarsened lung markings. No focal infiltrate to suggest pneumonia. Electronically signed by: Miguel Barnes M.D. 07/29/2018 1:52 PM Dictated: 07/29/18 1340 Transcribed: 07/29/18 1340 ECG Data Attestation: I personally reviewed and interpreted this ECG as follows: Indication: altered mental status (confusion) Rate (beats per minute): 72 Rhythm: sinus rhythm (with fusion complexes ) Findings: + other (Fusion complexes, nonspecific T wave abnormalities ), + LAFB and + RBBB (incomplete); no acute ischemic change Comparison ECG Date: from (05/27/2018) Change: no significant change Blood Pressure Blood Pressure Findings: Normal blood pressure MDM Narrative The patient is a pleasant 62-year-old gentleman with a past medical history of cirrhosis with ascites secondary to alcohol and hepatitis C, prior alcohol abuse, tobacco use disorder who presents emergency department with worsening confusion over the past several days per hpi. On arrival patient is fatigued appearing but no acute distress, afebrile stable vital signs. Patient appears clinically dry despite mild abdominal distention but soft and nontender. Patient exhibits moderate asterixis of bilateral upper extremities. WBC within normal limits. H/H 12/32.8 similar to prior values. Platelets within normal limits. INR 1.4 similar to prior values. Chemistry without acidosis. Creatini ne within normal limits. Total bilirubin 2.2 which is decreased from prior value. Ammonia elevated at 114 which is new for the patient. Troponin negative. Patient was ordered for lactulose. UA pending. Given the patient's abdomen is benign, without leukocytosis or fever SBP less likely. Thus will defer diagnostic paracentesis at this time as patient will likely require therapeutic paracentesis during admission. Reasonable to admit the patient for further management of patient's hyperammonemia. This was discussed with Tara Leary, who evaluate the patient for admission. Impression & Plan Hyperammonemia Discharge Plan Visit Data *Final* Discharge Date/Time: 07/29/18 18:41 Chief Complaint: Confusion Stated Complaint: CONFUSION,CANT SEE ED Provider: Xander Shukla Discharge Problem: Hyperammonemia Patient Disposition: Admitted As Inpatient Discharge Instructions Interventions: ED Discharge Assessment Last Done: 07/29/18 18:41 The scribe's documentation has been prepared under my direction and personally reviewed by me in its entirety. I confirm that the note above accurately reflects all work, treatment, procedures, and medical decision making performed by me.
[2018-07-29] MEDS ORDERED: FUROSEMIDE 20 MG in SYRINGE 0 ML IV ONE (17:14)
[2018-07-29] MEDS ORDERED: FUROSEMIDE 20 MG TAB PO SCH (17:15)
--- NOTE | 2018-07-29 17:25 | History & Physical Report ---
Date of Service July 29, 2018 Assessment & Plan (1) Decompensation of cirrhosis of liver: chronic Hepatitis C -62 year old M with chronic hepatitis genotype 1a, F4 and cirrhosis, with multiple past ED visits for paracentesis who presents to the ED on 07/29/18 with confusion and initial blurred vision and was found to have elevated ammonia levels of 114. Patient has been taking Lasix and spirolactone at home. He is not on lactulose because he reports he has not been prescribed those medications. He reports at home 2 bowel movements regularly -on exam by hospitalist, patient appears to be able to make medical decisions. Full Code Status. -he made some errors on the year and says it is 2012 and that the month is August when it is July 2018 -hannah at the bedside and reports that patient is not drinking alcohol in at least 3 months -review of outpatient notes that patient was referred to Transplant clinic in April 2018 for consideration of transplant evaluation but appointment was cancelled due to lack of health insurance and denied medical assistance -patient given lactulose in the ED, will have lactulose as TID, trend ammonia levels -no acute signs of infection but given multiple paracentesis in the recent past, will started Ceftriaxone in case there is spontaneous bacterial peritonitis/prevent SBP while plans for paracentesis on 07/30/18 -will consult gastroenterology service -will have patient on IV lasix, conklin for urine output, continue oral spirolactone Possible depression -Hannah Lemus: [phone] concerned patient has depression -psychiatry consultation requested (2) Hyperammonemia: -elevated ammonia levels of 114 on admission -patient given lactulose in the ED, will have lactulose as TID, trend ammonia levels (3) Ascites: -no acute signs of infection but given multiple paracentesis in the recent past, will started Ceftriaxone in case there is spontaneous bacterial peritonitis/prevent SBP while plans for paracentesis on 07/30/18 -will consult gastroenterology service PT/OT evaluations Case management assistance requested Code Status: Full Code Hannah Lemus: [phone] History of Present Illness 62 year old M with chronic hepatitis genotype 1a, F4 and cirrhosis, with multiple past ED visits for paracentesis who presents to the ED on 07/29/18 with confusion and initial blurred vision and was found to have elevated ammonia levels of 114. Patient has been taking Lasix and spirolactone at home. He is not on lactulose because he reports he has not been prescribed those medications. He reports at home 2 bowel movements regularly lactulose x 1 dose ordered by ED physician on exam by hospitalist, patient appears to be able to make medical decisions. Full Code Status. he made some errors on the year and says it is 2012 and that the month is August when it is July 2018 fiancee at the bedside and reports that patient is not drinking alcohol in at least 3 months patient reports blurred vision has resolved. denies fevers at home, denies headache, denies vomiting, no chest pain, no shortness of breath, breathing on room air Primary Care Provider: Steve Gatica MD Allergies Allergy/AdvReac Type Severity Reaction Status Date / Time iodine Allergy Unknown Unknown Verified 07/29/18 14:37 shellfish derived Allergy Unknown Hives and Verified 07/29/18 14:37 respiratory problems Home Medications Home Medications Medication Instructions Recorded Confirmed Type multivitamin 1 tab PO QAM 05/26/18 07/29/18 History furosemide 20 mg PO QAM 07/10/18 07/29/18 History spironolactone 100 mg PO QAM 07/10/18 07/29/18 History Past Med/Surg History Family History Father Cancer Mother Diabetes Kidney disease Social History Preferred Language: Lao Communication Ability: Effective Visual Impairment: No Limitations Hearing Ability: Normal Beliefs That Will Affect Care: None marital status: Current Living Situation: Significant Other current occupational status: unemployed Feels Safe at Home: Yes Smoking Status: Heavy tobacco smoker Tobacco Type: cigarettes Cigarettes Per Day: 1-5 Second Hand Exposure: No Hx Alcohol Use: Yes Alcohol Intake Frequency Comment: h/o heavy use. No drink in 2 weeks Hx Substance Use: No Physical Exam Constitutional: WD/WN, vitals as above Eyes: PERRL, conjunctivae normal, anicteric sclerae EOM intact bilaterally ENMT: external ear and nose normal, oropharynx normal Neck: trachea midline, no thyromegaly normal visual inspection Respiratory: normal respiratory effort, lungs clear to auscultation Cardiovascular: RRR, no murmur, no edema Gastrointestinal (Abdomen): Inspection/Auscultation: + abdomen distended and + abdominal edema Percussion/Palpation: + hernia and + ascites Neurologic: PERRL, EOMI, accommodation nl, no face palsy, no dysarthria CN' s II-XI intact bilaterally Psychiatric: Orientation: alert and cooperative Results & Data Vital Signs (Past 12 Hours) Vital Signs Temp Pulse Resp BP Pulse Ox 07/29/18 15:50 86 18 07/29/18 15:40 74 18 07/29/18 15:31 77 19 07/29/18 15:30 80 22 113/77 07/29/18 15:20 75 18 07/29/18 15:10 76 19 07/29/18 15:01 69 13 93 07/29/18 15:00 72 14 99/75 L 94 07/29/18 14:50 73 16 93 07/29/18 14:40 75 19 07/29/18 14:31 69 13 07/29/18 14:30 68 14 107/69 07/29/18 14:20 72 18 07/29/18 14:10 68 17 07/29/18 14:02 70 24 07/29/18 14:01 67 17 119/76 07/29/18 14:00 71 21 07/29/18 13:50 73 19 07/29/18 13:40 76 23 07/29/18 13:36 80 14 95 07/29/18 13:30 75 19 101/70 96 07/29/18 13:29 98 07/29/18 13:03 36.9 C 82 17 115/75 98
[2018-07-29] MEDS: cefTRIAXone SODIUM 2,000 MG in DEXTROSE 5% 50 ML IV SCH (18:25)
[2018-07-29] MEDS: LACTULOSE SYRUP 30 GM/45 ML UDP PO SCH (21:01)
[2018-07-30 01:38] LABS: Appearance Urine Clear (Clear); Bacteria Urine Automated Negative (Negative); Blood Urine 2+ (Negative); Color Urine Orange; Glucose Urine UA Negative (Negative); Ketones Urine Trace (Negative); Leukocyte Esterase Urine Trace (Negative); Nitrite Urine Positive (Negative); Protein Urine Negative (Negative); RBC Urine Automated >30 /hpf (0-4); Specific Gravity Urine 1.026 (1.000-1.030); Urobilinogen Urine Positive (Negative)
[2018-07-30 01:41] LABS: Bilirubin Urine 1+ (Negative); Ictotest Urine Positive (Negative)
[2018-07-30] MEDS: LACTULOSE SYRUP 30 GM/45 ML UDP PO SCH ×3 (07:21→20:56)
[2018-07-30] MEDS: SPIRONOLACTONE 100 MG TAB PO SCH (07:21)
[2018-07-30] MEDS: ALBUMIN 25% 50 ML IV SCH ×8 (07:21→14:19)
[2018-07-30 07:31] LABS: Basophils # (auto) 0.11 K/uL (0-0.2); Eosinophils # (auto) 0.18 K/uL (0-0.5); Eosinophils % (auto) 3.3 %; Hematocrit (blood only) 32.8 % (42-52); Hemoglobin 11.6 g/dL (14.0-18.0); Immature Granulocytes # (auto) 0.02 K/uL (0.00-0.02); Immature Granulocytes % (auto) 0.4 %; Lymphocytes # (auto) 0.78 K/uL (1.2-3.4); Lymphocytes % (auto) 14.4 %; Mean Corpuscular Hgb Conc 35.4 g/dL (32-36); Mean Corpuscular Volume 97.9 fL (80-100); Mean Platelet Volume 8.8 fL (7.4-10.4); Monocytes # (auto) 1.18 K/uL (0.11-0.59); Monocytes % (auto) 21.8 %; Neutrophils # (auto) 3.14 K/uL (1.4-6.5); Neutrophils % (auto) 58.1 %; Platelet Count 154 K/uL (130-400); RDW Coefficient of Variation 14.2 % (11.5-14.5); Red Blood Count 3.35 M/uL (4.7-6.1); White Blood Count 5.41 K/uL (4.8-10.8)
[2018-07-30] MEDS: FUROSEMIDE 20 MG in SYRINGE 0 ML IV SCH (07:59)
[2018-07-30] MEDS ORDERED: ALBUMIN 5% 250 ML IV SCH (08:00)
[2018-07-30 08:05] LABS: BUN Creatinine Ratio 17.2 (10-20); Calcium 8.5 mg/dl (8.5-10.1); Creatinine Clr Calc Pharmacy 79.5 ml/min; Est GFR (African American) 109.2; Est GFR (Non-African American) 94.3; Potassium 3.9 mmol/L (3.5-5.1)
[2018-07-30 08:08] LABS: Albumin Globulin Ratio 0.4 (0.9-2); Bilirubin,Total 2.1 mg/dl (0.2-1); Globulin 5.2 gm/dl (2.5-4.0); Total Protein 7.2 gm/dl (6.4-8.2)
--- NOTE | 2018-07-30 11:01 | Gastrointestinal Consultation ---
Date of Consultation July 30, 2018 Assessment & Plan (1) Hyperammonemia: (2) Hepatitis C: (3) Alcohol use disorder: (4) Decompensation of cirrhosis of liver: Pt is a 62 y/o male w HCV (genotype 1a, treatement naive), ETOH cirrhosis complicated by ascites formation, portal HTN who was admitted for confusion and blurry vision symptoms which has resolved. MELD 18 Last ETOH intake 2 months ago He lost medical insurance coverage, been paying out of pocket for meds and also cancelled f/u appts including liver transplant evaluation due to this reason. - CXR negative. F/U blood cx. Add urine culture. - CT head given hx of blurry vision ? TIA - Agree w u/s guided paracentesis w fluid analysis for cell cx, protein, albumin, culture - Continue Lactulose and titrate dose for effect 3-5 BMs a day - Likely will need his diuretics dose increased as well to Lasix 40mg daily, Spironolactone 100mg daily - 2g Na diet. - No recent abd imaging studies to r/o HCC. Will obtain RUQ u/s and AFP - UTD on EGD and colonoscopy - Consider cardiac workup to r/o congestive heart disease given only ascites accumulation w/o LE edema. - Challenge in his future f/u care would be related to his lack of medical insurance coverage. Recommend case management to help w perhaps application for med assistance - We can help coordinate f/u w Liver Transplant Clinic and also GI Clinic upon his discharge Supervising Physician Co-Signing Physician Notes I have seen and examined the patient with DEVANTE Gray. 62 yo male with cirrhosis secondary to etoh/hcv, admitted with confusion. Confusion has improved with lactulose. Today - currently alert and oriented to person, place, time, president, perrla faint scleral icterus, normal pulmonary excusion of lungs, abd soft nt nd +bs MELD halle 15 Insurance issues have prevented prior care. Last drink 3 months ago He appears to have insight into his disease Will need case management to assist with medical assistance to ensure follow-up. Await blood culture results, ascitic fluid tap is negative for sbp. Continue current diuetics and he needs to be compliant with lactulose to prevent further episodes of confusion, continued avoidance of ethanol. For now would hold on hcv treatment as an outpatient. He will need a transplant referral pending insurance and continued outpatient hepatology follow-up. History of Present Illness Reason for Consultation: Cirrhosis, confusion, ascites. Requesting Physician: Dr. Bradly Dalal Attending Physician: Dr. Rena Auguste History of Present Illness Pt is a 62 y/o male w hx of HCV genotype 1a, treatment naive and ETOH cirrhosis complicated by ascites formation requiring multiple paracenteses, portal HTN who presented to ED yesterday w confusion, blurred vision. He was found to have stable blood ct, no leukocytosis, LFTs at baseline. However ammonia level noted to be increased at 114. He wasn't on Lactulose or Xifaxan previously. He had been unemployed and lost insurance coverage. Last seen at GI clinic by DEVANTE Rankin 11/2017. Was also referred to [facility] Liver Transplant dept but he had cancelled appts due to loss of medical insurance. He reports paying out of pocket for his meds including his diuretics. Denies missing med doses. Admitted last ETOH intake 2 months ago. On exam today he is alert, oriented x 3. Unable to count backwards from 10 to 1 correctly. No asterixis noted. Blurry vision resolved. He denies CP, SOB, abd pain, n/v. Had large loose BM yesterday w/o rectal bleeding, dark or tarry stools. Infectious workup: - Blood cx pending - CXR w/ findings of chronic lung disease but no pneumonia - He is scheduled for u/s guided paracentesis today w fluid analysis, cx. U/S guided paracenteses hx: 10/2017 (5L), (7L), 07/10/18 (5L). Negative fluid cx and cytology for malignancy. EGD and colonoscopy 12/11/17: portal HTN, no varices noted. Int hemorrhoids, adenomatous colon polyps. Recall colonoscopy recommended in 5 yrs time. 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) Alcohol use disorder (Chronic) Tobacco use disorder (Chronic) Hepatitis C (Chronic) Surgical History History of esophagogastroduodenoscopy (EGD) (Chronic) Family History Father Cancer Mother Diabetes Kidney disease Social History Preferred Language: Syriac Communication Ability: Effective Visual Impairment: No Limitations Hearing Ability: Normal Beliefs That Will Affect Care: None marital status: Life Partner Current Living Situation: Significant Other current occupational status: unemployed Other Information That Helps Us Care for You: No Feels Safe at Home: Yes Safety Concerns: Feels Safe At This Time Smoking Status: Heavy tobacco smoker Tobacco Type: cigarettes Cigarettes Per Day: 20 Second Hand Exposure: No Hx Alcohol Use: No Hx Substance Use: No Review of Systems Review of Systems: All systems reviewed & are unremarkable except as noted in HPI & below Physical Exam Constitutional: WD/WN, vitals as above well groomed, cooperative and comfortable Eyes: EOM intact bilaterally icteric sclera ENMT: external ear and nose normal, oropharynx normal Respiratory: normal respiratory effort, lungs clear to auscultation Cardiovascular: RRR, no murmur, no edema Gastrointestinal (Abdomen): Inspection/Auscultation: + abdomen distended and normal bowel sounds Percussion/Palpation: + fluid wave; abdomen nontender Skin: no rashes, warm and dry + jaundice Neurologic: Motor/Sensory: no asterixis Psychiatric: A+Ox3, euthymic affect Lymphatic: no lymphedema Results & Data Vital Signs (Past 12 Hours) Vital Signs Temp Pulse Pulse Resp BP Pulse Ox 07/30/18 07:35 37.5 C 76 109/75 99 07/30/18 04:23 37.7 C H 79 18 114/75 94 07/29/18 23:53 37.4 C 73 18 105/67 96 07/29/18 23:00 75 Laboratory Results - last 72 hr 07/29/18 07/29/18 07/29/18 14:00 14:00 14:00 WBC 6.14 RBC 3.36 L Hgb 12.0 L Hct 32.8 L MCV 97.6 MCH 35.7 H MCHC 36.6 H RDW Std Deviation 51.5 H RDW Coeff of Mitchell 14.4 Plt Count 157 MPV 8.9 Immature Gran % (Auto) 0.2 Neut % (Auto) 70.6 Lymph % (Auto) 6.7 Early % (Auto) 19.9 Eos % (Auto) 1.3 Baso % (Auto) 1.3 Immature Gran # (Auto) 0.01 Neut # (Auto) 4.34 Lymph # (Auto) 0.41 L Early # (Auto) 1.22 H Eos # (Auto) 0.08 Baso # (Auto) 0.08 PT 14.0 H INR 1.4 H APTT 29.2 PTT Ratio 1.1 VBG pH VBG pCO2 VBG pO2 VBG HCO3 VBG O2 Saturation VBG Base Excess Barometric Pressure Sodium 131 L Potassium 4.0 Chloride 100 Carbon Dioxide 24 Anion Gap 8.0 BUN 13 Creatinine 0.78 Est Cr Clr Drug Dosing 87.6 Est GFR ( Amer) 113.7 Est GFR (Non-Af Amer) 98.1 BUN/Creatinine Ratio 16.5 Glucose 101 H Lactate Calcium 8.6 Phosphorus 3.5 Magnesium 2.1 Total Bilirubin 2.2 H Direct Bilirubin 1.0 H AST 30 ALT 21 Alkaline Phosphatase 99 Ammonia Lactate Dehydrogenase Troponin I < 0.015 Total Protein 7.8 Albumin 2.1 L Globulin 5.7 H Albumin/Globulin Ratio 0.4 L Urine Color Urine Appearance Urine pH Ur Specific [place] Urine Protein Urine Glucose (UA) Urine Ketones Urine Blood Urine Nitrite Urine Bilirubin Urine Urobilinogen Ur Leukocyte Esterase Urine WBC (Auto) Urine RBC (Auto) U Hyaline Cast (Auto) U Epithel Cells (Auto) Urine Bacteria (Auto) 07/29/18 07/29/18 07/29/18 14:00 14:00 14:12 WBC RBC Hgb Hct MCV MCH MCHC RDW Std Deviation RDW Coeff of [place] Plt Count MPV Immature Gran % (Auto) Neut % (Auto) Lymph % (Auto) Early % (Auto) Eos % (Auto) Baso % (Auto) Immature Gran # (Auto) Neut # (Auto) Lymph # (Auto) Early # (Auto) Eos # (Auto) Baso # (Auto) PT INR APTT PTT Ratio VBG pH 7.51 H VBG pCO2 28 L VBG pO2 32 VBG HCO3 22 VBG O2 Saturation 66.1 VBG Base Excess 0.1 Barometric Pressure 731.6 Sodium Potassium Chloride Carbon Dioxide Anion Gap BUN Creatinine Est Cr Clr Drug Dosing Est GFR ( Amer) Est GFR (Non-Af Amer) BUN/Creatinine Ratio Glucose Lactate 1.7 Calcium Phosphorus Magnesium Total Bilirubin Direct Bilirubin AST ALT Alkaline Phosphatase Ammonia 114.3 H Lactate Dehydrogenase Troponin I Total Protein Albumin Globulin Albumin/Globulin Ratio Urine Color Urine Appearance Urine pH Ur Specific [place] Urine Protein Urine Glucose (UA) Urine Ketones Urine Blood Urine Nitrite Urine Bilirubin Urine Urobilinogen Ur Leukocyte Esterase Urine WBC (Auto) Urine RBC (Auto) U Hyaline Cast (Auto) U Epithel Cells (Auto) Urine Bacteria (Auto) 07/30/18 07/30/18 07/30/18 00:45 07:02 07:02 WBC 5.41 RBC 3.35 L Hgb 11.6 L Hct 32.8 L MCV 97.9 MCH 34.6 H MCHC 35.4 RDW Std Deviation 51.0 H RDW Coeff of Mitchell 14.2 Plt Count 154 MPV 8.8 Immature Gran % (Auto) 0.4 Neut % (Auto) 58.1 Lymph % (Auto) 14.4 Early % (Auto) 21.8 Eos % (Auto) 3.3 Baso % (Auto) 2.0 Immature Gran # (Auto) 0.02 Neut # (Auto) 3.14 Lymph # (Auto) 0.78 L Early # (Auto) 1.18 H Eos # (Auto) 0.18 Baso # (Auto) 0.11 PT INR APTT PTT Ratio VBG pH VBG pCO2 VBG pO2 VBG HCO3 VBG O2 Saturation VBG Base Excess Barometric Pressure Sodium 135 L Potassium 3.9 Chloride 103 Carbon Dioxide 24 Anion Gap 8.0 BUN 15 Creatinine 0.86 Est Cr Clr Drug Dosing 79.5 Est GFR ( Amer) 109.2 Est GFR (Non-Af Amer) 94.3 BUN/Creatinine Ratio 17.2 Glucose 91 Lactate Calcium 8.5 Phosphorus Magnesium Total Bilirubin 2.1 H Direct Bilirubin AST 28 ALT 18 Alkaline Phosphatase 92 Ammonia Lactate Dehydrogenase Troponin I Total Protein 7.2 Albumin 2.0 L Globulin 5.2 H Albumin/Globulin Ratio 0.4 L Urine Color [place] Urine Appearance Clear Urine pH 6.0 Ur Specific [place] 1.026 Urine Protein Negative Urine Glucose (UA) Negative Urine Ketones Trace H Urine Blood 2+ H Urine Nitrite Positive A Urine Bilirubin 1+ H Urine Urobilinogen Positive H Ur Leukocyte Esterase Trace H Urine WBC (Auto) 1-5 Urine RBC (Auto) >30 H U Hyaline Cast (Auto) 1-5 U Epithel Cells (Auto) 5-10 H Urine Bacteria (Auto) Negative 07/30/18 07:02 WBC RBC Hgb Hct MCV MCH MCHC RDW Std Deviation RDW Coeff of [place] Plt Count MPV Immature Gran % (Auto) Neut % (Auto) Lymph % (Auto) Early % (Auto) Eos % (Auto) Baso % (Auto) Immature Gran # (Auto) Neut # (Auto) Lymph # (Auto) Early # (Auto) Eos # (Auto) Baso # (Auto) PT INR APTT PTT Ratio VBG pH VBG pCO2 VBG pO2 VBG HCO3 VBG O2 Saturation VBG Base Excess Barometric Pressure Sodium Potassium Chloride Carbon Dioxide Anion Gap BUN Creatinine Est Cr Clr Drug Dosing Est GFR ( Amer) Est GFR (Non-Af Amer) BUN/Creatinine Ratio Glucose Lactate Calcium Phosphorus Magnesium Total Bilirubin Direct Bilirubin AST ALT Alkaline Phosphatase Ammonia Lactate Dehydrogenase 162 Troponin I Total Protein Albumin Globulin Albumin/Globulin Ratio Urine Color Urine Appearance Urine pH Ur Specific [place] Urine Protein Urine Glucose (UA) Urine Ketones Urine Blood Urine Nitrite Urine Bilirubin Urine Urobilinogen Ur Leukocyte Esterase Urine WBC (Auto) Urine RBC (Auto) U Hyaline Cast (Auto) U Epithel Cells (Auto) Urine Bacteria (Auto)
--- NOTE | 2018-07-30 11:13 | CT Scan Report ---
CT head/brain wo con CLINICAL HISTORY: blurred vision, confusion COMPARISON STUDY: No previous studies for comparison. TECHNIQUE: Axial CT of the brain is performed from the vertex to the skull base. IV contrast was not administered for this examination. A dose lowering technique was utilized adhering to the principles of ALARA. CT DOSE: 690.05 mGycm FINDINGS: No intra or extra-axial mass lesions are visualized. There is no CT evidence of acute cortical infarc tion. There is no evidence of midline shift. There is no acute hemorrhage. No calvarial fractures ar e visualized. There are patchy white matter hypodensities likely on a small vessel basis. There is no evidence of pathologic ventricular dilatation. There is no evidence of acute sinusitis IMPRESSION: No acute intracranial findings Electronically signed by: Armen Malloy M.D. 07/30/2018 11:12 AM
--- NOTE | 2018-07-30 11:30 | Ultrasound Report ---
ULTRASOUND GUIDED DIAGNOSTIC AND THERAPEUTIC PARACENTESIS CLINICAL HISTORY: Ascites. COMPARISON STUDY: No previous studies for comparison. PROCEDURE: The risks, benefits, and alternatives to the procedure were discussed with the patient inc luding the risk of bleeding, infection and injury to adjacent structures. The patient agreed to the procedure and informed written consent was obtained. Following real-time ultrasound localization, the skin of the right lower quadrant was prepped and draped. Following local anesthesia with Xylocaine, the sheath paracentesis needle was inserted and approximately 3 liters of straw-colored fluid was rem rufina by vacuum suction. The patient tolerated the procedure well and no immediate complications were evident. IMPRESSION: Ultrasound-guided paracentesis with removal of 3 liters of ascites. 1 L of ascites was s ent to the laboratory for analysis as ordered. Electronically signed by: Anibal Chang M.D. 07/30/2018 11:29 AM
--- NOTE | 2018-07-30 11:49 | Ultrasound Report ---
US abdomen limited CLINICAL HISTORY: 62 years-old Male presenting with r/o hcc. TECHNIQUE: Real-time grayscale and limited color Doppler ultrasound imaging of the abdomen limited to the right upper quadrant was performed. COMPARISON: None. FINDINGS: Pancreas: Heterogeneous echogenicity and echotexture. Prominence of the pancreatic duct though the di ameter is within the range of normal. Liver: Nodular contour with hyperechogenic parenchyma and heterogeneous echotexture, consistent with cirrhosis. The liver measures 12.7 cm in maximal sagittal dimension. No sonographic evidence of hepat ic mass. Main portal vein patent with normal directional flow. Velocity approximately 12 cm/s. Biliary: No intrahepatic biliary ductal dilatation. Common bile duct measures up to 9 mm in diameter. Gallbladder: No evidence of gallstones, gallbladder distention, or pericholecystic fluid or inflammat ory change. Note made of adenomyomatosis evidence by punctate hyperechogenicity within the gallbladde r wall with ring down artifact. Gallbladder wall thickening is likely secondary. Right kidney: Normal in appearance without evidence of hydronephrosis. Ascites: Perihepatic ascites. Internal echoes may suggest complexity or inspissated debris. Other: None. IMPRESSION: 1. Cirrhosis. No sonographic evidence of hepatic mass. 2. Ascites. 3. Nonspecific heterogeneity of the pancreas. Electronically signed by: Miguel Barnes M.D. 07/30/2018 11:48 AM
[2018-07-30 11:58] LABS: Albumin Peritoneal Fluid 0.7 g/dl
--- NOTE | 2018-07-30 12:03 | Psychiatric Consultation ---
Date of Consultation July 30, 2018 Impression / Recommendations Impression 62-year-old male admitted medically due to concern for cirrhosis and hyperammonemia related to chronic Hepatitis and alcoholism. Psychiatric consultation requested by patient's fiance due to concern for possible depression. Pt does not give evidence of depressive symptoms significant enough to meet formal criteria for a depressive disorder. He feels he has been coping with stressors reasonably and denies SI or thoughts to harm himself or give up. There is not indication for inpatient psychiatric admission to be recommended. Despite requesting consult, patient's fiance agreed that additional outpatient services were not necessary for the patient. Given no clear criteria to initiate an antidepressive medication, would recommend patient monitor for symptoms on an outpatient basis. Therapy referral was offered and declined, as patient does not feel it would be beneficial if he does not feel he is depressed. Tony verbalized that she does not have any safety concerns as it relates to the patient. The pair is aware of local psychiatric services/offices and tony states [facility] crisis number is located on their refrigerator for use as needed. This provider offered to the couple a list of contact information for local offices, which was declined. The pair do not believe that any outpatient psychiatric support is currently necessary, and they deny any other needs from our service at this time. Dr. Miriam Vázquez was directly involved in review and discussion of the patient's case and participated in medical decision making regarding treatment recommendations. CPT Code Initial Consultation: 56080 Psych History Identifying Data 62-year-old male admitted medically on 07/29/18 due to decompensation of cirrhosis of liver due to chronic hepatitis C and alcoholism. Psychiatric consultation was requested by patient's fikrysten� due to concern for depression. Information is gathered from hospital documentation, patient's fianc�, and the patient himself - the combination of which is considered to be reliable. Chief Complaint "No, I am fine. I think I have been okay." History of Present Illness Isaac Roach is a 62-year-old male admitted medically on 07/29/2018 due to decompensation of cirrhosis of liver due to chronic hepatitis C and history of alcoholism. Patient was confused upon admission due to hyperammonemia and on day of consultation had received a paracentesis to assist with ascites. It was reported that psychiatric consultation was requested by patient's fikrysten�, who is concerned about the possibility of depression. Patient's case was reviewed with psychiatric nurse liaison and supervising psychiatrist. Patient was agreeable to conversation with this provider, giving verbal permission for his fianc�e, Mariah, to remain in the room during our discussion. Patient states he has not noticed a significant change in mood over the past several months. He does admit that he was laid off of employment and has been experiencing increased medical concerns within the last 3-4 months. It was reported the patient has had 4 hospital admissions since May 2018. Patient denies low mood, feeling he is not actively depressed. He denies any changes in appetite or energy level. Patient states that he has been attending to ADLs regularly and denies decreased motivation to complete daily tasks. Patient does admit to an increase in the amount of sleep that he gets throughout the day, explaining that while off work he spends more time in front of the television - therefore dozing off. Patient does not feel that this is related to mood concerns, isolation, retreating to bed to escape stressors. Fikrysten� reports that patient had made statements on day of admission including a desire to "give up up". Fianc� questions if this was related to confusion on admission due to medical condition. Patient states that he has no recollection of these comments, and denies a desire to "give up". Patient denies any suicidal ideation or thoughts to self-harm. He denies homicidal ideation, auditory or visual hallucinations, or any other delusions/paranoia. Both patient and his fianc�e deny any safety concerns, and both report feeling comfortable with patient returning to home or other discharge planning per primary medical team. Patient denies previous psychiatric history, stating he has never been on antidepressant or antianxiety medications. He does admit to a period of several months in which she spoke with a counselor, stating this was many years ago. Patient does not feel that therapeutic intervention is necessary, as he does not believe that there is anything to treat. Patient is also not interested in psychiatric medications of any kind at this time. Patient and ramónkrysten� confirmed that crisis numbers are posted on the refrigerator at home if necessary, as jasmina� states she personally has a rather significant psychiatric history. Because of this, the fianc� is also aware of outpatient psychiatric resources should the patient desire therapy or psychiatric medications in the future. Past Psychiatric History Previous Psych History: None Current Psychiatric Diagnosis: None Previous Psych Admissions: denies History of Previous Suicide Attempt: No Allergies Allergy/AdvReac Type Severity Reaction Status Date / Time iodine Allergy Unknown Unknown Verified 07/29/18 14:37 shellfish derived Allergy Unknown Hives and Verified 07/29/18 14:37 respiratory problems Home Medications Home Medications Medication Instructions Recorded Confirmed Type multivitamin 1 tab PO QAM 05/26/18 07/29/18 History furosemide 20 mg PO QAM 07/10/18 07/29/18 History spironolactone 100 mg PO QAM 07/10/18 07/29/18 History Substance Abuse History Patient admits to history of alcohol use, most recently consuming a pint of Manjit Ramirez daily. Patient reports that his last drink was 2 months ago, denies any further urges to use alcohol. Cites his medical complications as primary reason for abstinence. Personal History Living Arrangements: Home (with fiance) Highest Grade Completed: Vocational Training ([employer]) Employment Status: Unemployed ([employer] - unemployed/out of work x 6 months) Marital Status: Living w/ Signif. 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) Alcohol use disorder (Chronic) Tobacco use disorder (Chronic) Hepatitis C (Chronic) Surgical History History of esophagogastroduodenoscopy (EGD) (Chronic) Family History Father Cancer Mother Diabetes Kidney disease Social History Preferred Language: Norwegian Communication Ability: Effective Visual Impairment: No Limitations Hearing Ability: Normal Beliefs That Will Affect Care: None marital status: Life Partner Current Living Situation: Significant Other current occupational status: unemployed Other Information That Helps Us Care for You: No Feels Safe at Home: Yes Safety Concerns: Feels Safe At This Time Smoking Status: Heavy tobacco smoker Tobacco Type: cigarettes Cigarettes Per Day: 20 Second Hand Exposure: No Hx Alcohol Use: No Hx Substance Use: No Physical Exam Psychiatric: Orientation: alert, oriented x 3 and cooperative Apperance: appropriately dressed (in hospital gown) and + disheveled Icterus Eye Contact: good eye contact Motor Behavior: no abnormal motor movements (observed while laying in bed) Speech: normal rate/rhythm/volume of speech (minimally productive, brief responses to questions) Affect: + flat affect (not overtly depressed); no anxious affect Mood: no depressed mood and no anxious mood "I feel fine" Thought Process: goal directed thought process, linear/logical thought process and clear/coherent thought process Thought Content: reality based without delusions Suicidal Thoughts: denies suicidal thoughts and denies suicidal plan Homicidal Thoughts: denies homicidal thoughts Hallucinations: no auditory hallucinations and no visual hallucinations Cognition: remote memory grossly intact, attention grossly intact and language grossly intact Estimated Intelligence: consistent with education level Insight: + fair insight Judgement: + fair judgement Vital Signs (Past 24 Hours): Last Vital Signs Temp 37.5 C 07/30/18 07:35 Pulse 76 07/30/18 07:35 Resp 18 07/30/18 04:23 BP 109/75 07/30/18 07:35 Pulse Ox 99 07/30/18 07:35 Review of Systems Constitutional: reports some difficulty concentrating Cardiovascular: denied Respiratory: denied Gastrointestinal: reports general abdominal discomfort Neurological: denied Psychiatric: denies symptoms other than stated above Total of at least 10 systems reviewed, pertinent positives as above and in HPI. Results & Data Medications Administered Ceftriaxone Sodium 2,000 mg/ (Dextrose) 70 mls @ 100 mls/hr IV DAILY@1815 [facility]; Protocol Stop: 07/31/18 18:14 Last Infusion: 07/29/18 19:31 Dose: 0 mls/hr Documented by: [id number] Admin: 07/29/18 18:25 Dose: 100 mls/hr Documented by: [id number] Furosemide 20 mg/ Syringe 2 mls @ 4 mls/min IV DAILY [facility] Stop: 08/29/18 08:59 Last Admin: 07/30/18 07:59 Dose: 4 mls/min Documented by: [id number] Albumin Human (Albumin 25%) 50 mls @ 100 mls/hr IV 1100,1130,1200,1230 [facility] Stop: 07/30/18 12:59 Last Admin: 07/30/18 11:45 Dose: 100 mls/hr Documented by: [id number] Lactulose (Chronulac) 30 gm PO TID [facility] Stop: 08/28/18 20:59 Last Admin: 07/30/18 07:21 Dose: 30 gm Documented by: [id number] Admin: 07/29/18 21:01 Dose: 30 gm Documented by: [id number] Spironolactone (Aldactone) 100 mg PO QAM [facility] Stop: 08/29/18 08:59 Last Admin: 07/30/18 07:21 Dose: 100 mg Documented by: [id number]
[2018-07-30 12:19] LABS: Appearance Peritoneal Fluid CLEAR; Color Peritoneal Fluid YELLOW; Mononuclear WBC Peritoneal 89.7 %; Polynuclear WBC Peritoneal 10.3 %; RBC Peritoneal Fluid (A) < 3000 /uL; WBC Peritoneal Fluid (A) 118 /ul (0-300)
--- NOTE | 2018-07-30 12:41 | Hospitalist Progress Note ---
Date of Service July 30, 2018 Assessment & Plan (1) Decompensation of cirrhosis of liver: chronic Hepatitis C -62 y/o male w HCV (genotype 1a, treatement naive), ETOH cirrhosis complicated by ascites formation, portal HTN -presents to the ED on 07/29/18 with confusion and initial blurred vision and was found to have elevated ammonia levels of 114. Patient has been taking Lasix and spirolactone at home. He is not on lactulose because he reports he has not been prescribed those medications. He reports at home 2 bowel movements regularly -fiancee at the bedside and reports that patient is not drinking alcohol in at least 3 months -review of outpatient notes that patient was referred to Transplant clinic in April 2018 for consideration of transplant evaluation but appointment was cancelled due to lack of health insurance and denied medical assistance -patient given lactulose in the ED, continue lactulose as TID, was started on Ceftriaxone 2 grams IV daily in the ED with plans for paracentesis on 07/30/18 -abdomen distention improved after paracentesis of the ascites fluid on 07/30/18. removal of 3 liters of ascites. patient received 50 grams of 25% albumin before paracentesis. 3 liters of fluid removed with paracentesis. patient currently getting additional 50 grams of 25% albumin post-paracentesis. Patient awake and answers questions appropriately. Patient's fiancee at bedside. Patient reports the lactulose that he has been getting in the hospital is allowing him to make more bowel movements -analysis of the the peritoneal fluid does not show evidence of spontaneous bacterial peritonitis as WBC only 118/ul. will stop ceftriaxone as last dose on 07/30/18 -SAAG = (serum albumin) minus (albumin level of ascitic fluid) = 2 minus 0.7 equals 1.3 and and total protein in peritoneal fluid is 2 -with a SAAG greater than 1.2 and peritoneal fluid protein less than 2.5, the st udies strongly suggestive ascites is from cirrhosis -Gastroenterology service suggested cardiac workup of ascites, will order echocardiogram but unlikely that recurrent ascites is from a CHF -will have patient on continued 20 mg IV lasix daily for now, continue oral spirolactone 100 mg daily -monitor output, patient voided without need of conklin on this admission (2) Hyperammonemia: -elevated ammonia levels of 114 on admission -hyperammonemia likely the cause of initial visual disturbances at home, this resolved when in the ED on 07/29/18 -patient given lactulose in the ED, continue lactulose as TID, will have repeat ammonia levels -CT head scan ordered by GI did not show evidence of stroke (3) Ascites: -abdomen distention improved after paracentesis of the ascites fluid on 07/30/18. removal of 3 liters of ascites. patient received 50 grams of 25% albumin before paracentesis. 3 liters of fluid removed with paracentesis. patient currently getting additional 50 grams of 25% albumin post-paracentesis. Patient awake and answers questions appropriately. Patient's fiancee at bedside. Patient reports the lactulose that he has been getting in the hospital is allowing him to make more bowel movements -analysis of the the peritoneal fluid does not show evidence of spontaneous bacterial peritonitis as WBC only 118/ul. will stop ceftriaxone as last dose on 07/30/18 -SAAG = (serum albumin) minus (albumin level of ascitic fluid) = 2 minus 0.7 equals 1.3 and and total protein in peritoneal fluid is 2 -with a SAAG greater than 1.2 and peritoneal fluid protein less than 2.5, the studies strongly suggestive ascites is from cirrhosis -Gastroenterology service suggested cardiac workup of ascites, will order e chocardiogram but unlikely that recurrent ascites is from a CHF -will have patient on continued 20 mg IV lasix daily for now, continue oral spirolactone 100 mg daily Possible depression -Johny Lemus: [phone] concerned patient has depression -psychiatry consultation requested PT/OT evaluations Case management assistance requested to help with financial needs Code Status: Full Code Johny Lemus: [phone] Subjective abdomen distention improved after paracentesis of the ascites fluid on 07/30/18. patient received 50 grams of 25% albumin before paracentesis. 3 liters of fluid removed with paracentesis. patient currently getting additional 50 grams of 25% albumin post-paracentesis. Patient awake and answers questions appropriately. Patient's fiancee at bedside. Patient reports the lactulose that he has been getting in the hospital is allowing him to make more bowel movements Physical Exam Constitutional: WD/WN, vitals as above Eyes: PERRL, conjunctivae normal, anicteric sclerae EOM intact bilaterally ENMT: external ear and nose normal, oropharynx normal Neck: trachea midline, no thyromegaly normal visual inspection Respiratory: normal respiratory effort, lungs clear to auscultation Cardiovascular: RRR, no murmur, no edema Gastrointestinal (Abdomen): Percussion/Palpation: + hernia abdomen distention improved after paracentesis of the ascites fluid on 07/30/18 Neurologic: PERRL, EOMI, accommodation nl, no face palsy, no dysarthria CN's II-XI intact bilaterally Psychiatric: Orientation: alert and cooperative Results & Data Vital Signs (Past 12 Hours) Vital Signs Temp Pulse Resp BP Pulse Ox 07/30/18 07:35 37.5 C 76 109/75 99 07/30/18 04:23 37.7 C H 79 18 114/75 94
[2018-07-30] MEDS: cefTRIAXone SODIUM 2,000 MG in DEXTROSE 5% 50 ML IV SCH (18:22)
[2018-07-31 06:01] LABS: Basophils # (auto) 0.07 K/uL (0-0.2); Basophils % (auto) 1.2 %; Eosinophils # (auto) 0.41 K/uL (0-0.5); Eosinophils % (auto) 7.1 %; Hematocrit (blood only) 30.9 % (42-52); Hemoglobin 11.3 g/dL (14.0-18.0); Immature Granulocytes # (auto) 0.01 K/uL (0.00-0.02); Immature Granulocytes % (auto) 0.2 %; Lymphocytes # (auto) 0.78 K/uL (1.2-3.4); Lymphocytes % (auto) 13.4 %; Mean Corpuscular Hgb Conc 36.6 g/dL (32-36); Mean Corpuscular Volume 96.9 fL (80-100); Mean Platelet Volume 8.9 fL (7.4-10.4); Monocytes # (auto) 1.39 K/uL (0.11-0.59); Monocytes % (auto) 23.9 %; Neutrophils # (auto) 3.15 K/uL (1.4-6.5); Neutrophils % (auto) 54.2 %; Platelet Count 120 K/uL (130-400); RDW Coefficient of Variation 14.1 % (11.5-14.5); RDW Standard Deviation 50.4 fL (36.4-46.3); Red Blood Count 3.19 M/uL (4.7-6.1); White Blood Count 5.81 K/uL (4.8-10.8)
[2018-07-31 06:34] LABS: Albumin Level 2.8 gm/dl (3.4-5.0); Calcium 8.6 mg/dl (8.5-10.1); Creatinine Clr Calc Pharmacy 87.6 ml/min; Est GFR (African American) 113.7; Est GFR (Non-African American) 98.1; Potassium 3.7 mmol/L (3.5-5.1)
[2018-07-31 06:39] LABS: Albumin Globulin Ratio 0.6 (0.9-2); Bilirubin,Total 1.7 mg/dl (0.2-1); Globulin 4.4 gm/dl (2.5-4.0); Total Protein 7.2 gm/dl (6.4-8.2)
[2018-07-31] MEDS: SPIRONOLACTONE 100 MG TAB PO SCH (07:31)
[2018-07-31] MEDS: FUROSEMIDE 20 MG in SYRINGE 0 ML IV SCH (07:31)
[2018-07-31] MEDS: LACTULOSE SYRUP 30 GM/45 ML UDP PO SCH ×2 (07:31→13:48)
--- NOTE | 2018-07-31 09:01 | Gastroenterology Progress Note ---
Date of Service July 31, 2018 Assessment & Plan (1) Hyperammonemia: Present on Admission?: Yes (2) Decompensation of cirrhosis of liver: Mr. Roach is a 62 yr old male with ETOH/HCV cirrhosis with ascites admitted with new hepatic encephalopathy. W/u for infection (-) thus far including 3 L paracentesis w/o evidence of SBP. Back to baseline mental status despite continued high ammonia level - likely chronic hyperammonemia. 1. Will review results when available: awaiting AFP, final blood and peritoneal fluid cultures. 2. 2 gm sodium diet. 3. Diuretics: Pt believes that prior to admission, on furosemide 20 and spironolactone 100 QAM. Would increase to 40/100 daily. 4. Lactulose - start with 30gm TID but titrate to 2-3 loose BMs/day 5. Will need OP f/u for coordination with liver transplant team, Q 6 month liver imaging for screening for HCC, to be given option for HCV tx, and to be followed for management of ascites. Present on Admission?: Yes (3) Ascites: Present on Admission?: Yes (4) Hepatitis C: Present on Admission?: Yes Supervising Physician Co-Signing Physician Notes I have seen and examined the patient and discussed the management with DEVANTE Rankin. Encephalophathy appears resolved - he appears to be in good spirits this morning. PE - alert and oriented to person, place, time, normal excusion of chest, abd - soft nt nd +bs, mild ascites, no raymond Labs reviewed- MELD stable, cultures are ngtd Agree with further plan as per Shilo's assessment and plan. OK to ms home with outpatient hepatology follow-up. Subjective Mr. Isaac roach is a 62 yr old male with a hx of HCV 1a tx naive and ETOH cirrhosis with ascites. Reports most recent alcohol intake 3 months ago. He was admitted in hepatic encephalopathy on 07/29/18. Paracentesis on 07/30, 3 L removed. Fluid analysis: WBC 118, SAAG 2-0.7 = 1.3; peritoneal total protein 2.0. Fluid Cx pending. Ammonia 40 ->114->80 today. But, awake, alert, oriented, able to give a detailed hx; no evidence of any confusion today. Abd US on 07/30: cirrhosis, no focal mass. Regarding w/u for infection: CXR with chronic lung disease, no infiltrates; Blood Cx pending; Urine Cx with skin vladimir only. MELD today = 14 (T Bili 1.7, Na 135, Cr 0.78, INR 1.4) Review of Systems Review of Systems: ROS: Gen: Denies weakness, fevers, weight loss Eyes: No eye redness, or pain, no recent vision changes Resp: No SOB, no cough Cardio: No palpitations/irregular beats, no chest pain GI: No abdominal pain, no nausea/vomiting, Abdominal girth small today compared to prior to paracentesis and no leaking from the site. : Denies pain on urination Skin: No jaundice, itching or new rashes; + spider angiomas on the chest. Physical Exam Constitutional: WD/WN, vitals as above Eyes: PERRL, conjunctivae normal, anicteric sclerae ENMT: external ear and nose normal, oropharynx normal Neck: trachea midline, no thyromegaly Respiratory: normal respiratory effort, lungs clear to auscultation Cardiovascular: RRR, no murmur, no edema Gastrointestinal (Abdomen): normal bowel sounds, soft, nontender, no hepatosplenomegaly soft, reducible 2cm umbilical hernia, diastasis recti. Musculoskeletal: no cyanosis or clubbing, extremities motor strength 5/5 Skin: no rashes, warm and dry Neurologic: PERRL, EOMI, accommodation nl, no face palsy, no dysarthria no asterixes Psychiatric: A+Ox3, euthymic affect No current evidence of hepatic encephalopathy on exam. Results & Data Vital Signs (Past 12 Hours) Vital Signs Temp Pulse Pulse Resp BP BP Pulse Ox 07/31/18 07:00 36.8 C 61 17 107/67 95 07/31/18 04:00 36.9 C 58 L 20 102/60 94 07/30/18 23:59 61 07/30/18 22:41 36.7 C 68 20 108/62 94 Diagnostic Findings Abdominal US 07/29/17: 1. Cirrhosis. No sonographic evidence of hepatic mass. 2. Ascites. 3. Nonspecific heterogeneity of the pancreas.
--- NOTE | 2018-07-31 10:40 | Hospitalist Progress Note ---
Date of Service July 31, 2018 Assessment & Plan (1) Decompensation of cirrhosis of liver: (2) Hyperammonemia: given Lactulose (+) 3-4 BMs/day back to baseline mental status ammonia level down continue Lactulose at home ff up with GI as outpatient- clinic to call patient (3) Ascites: s/p Paracentesis draining 3 L no signs of SBP increase Lasix to 40mg from 20mg po daily continue Aldactone 100mg po daily Possible depression -Johny Lemus: [phone] concerned patient has depression -psychiatry service evaluated the patient, does not meet criteria for depressive disorder, coping reasonably well monitor and ff up as outpatient PT/OT evaluation - recommend return home Disposition d/c home today ff up with PCP Dr. Antoine Sun 10:45am. Subjective ff up for hepatic encephalopathy, ascites seen resting in bed, comfortable in good spirits states he feels better overall denies confusion/drowsiness, back to baseline mental status denies abdominal pain (+) 3-4 BMs /day no other symptoms states he is ready and would like to be discharged today Mr. Isaac joseph is a 62 yr old male with a hx of HCV 1a tx naive and ETOH cirrhosis with ascites. Reports most recent alcohol intake 3 months ago. He was admitted in hepatic encephalopathy on 07/29/18. Paracentesis on 07/30, 3 L removed. Fluid analysis: WBC 118, SAAG 2-0.7 = 1.3; peritoneal total protein 2.0. Fluid Cx pending. Ammonia 40 ->114->80 today. But, awake, alert, oriented, able to give a detailed hx; no evidence of any confusion today. Abd US on 07/30: cirrhosis, no focal mass. Regarding w/u for infection: CXR with chronic lung disease, no infiltrates; Blood Cx pending; Urine Cx with skin vladimir only. MELD today = 14 (T Bili 1.7, Na 135, Cr 0.78, INR 1.4) Review of Systems Review of Systems: All systems reviewed & are unremarkable except as noted in HPI & below Physical Exam Physical Exam: General- oriented x 3, not in distress, speaks in sentences with no effort or accessory muscle use Eyes- anicteric Neck- no JVD Lungs- clear breath sounds bilaterally, no rales/wheezes Heart- normal rate, regular rhythm; no murmurs Abdomen- normal bowel sounds, (+) mild distention but soft (+) umbilical hernia- nontender Extremities- no pretibial edema, no calf tenderness Neuro- alert, oriented x 3; no gross focal neurologic deficits Skin- warm & dry Results & Data Vital Signs (Past 12 Hours) Vital Signs Temp Pulse Pulse Resp BP BP Pulse Ox 07/31/18 07:00 36.8 C 61 17 107/67 95 07/31/18 04:00 36.9 C 58 L 20 102/60 94 07/30/18 23:59 61 07/30/18 22:41 36.7 C 68 20 108/62 94 Laboratory Results Laboratory Results - last 24 hr 07/30/18 07/31/18 07/31/18 11:44 05:54 05:54 WBC 5.81 RBC 3.19 L Hgb 11.3 L Hct 30.9 L MCV 96.9 MCH 35.4 H MCHC 36.6 H RDW Std Deviation 50.4 H RDW Coeff of Mitchell 14.1 Plt Count 120 L MPV 8.9 Immature Gran % (Auto) 0.2 Neut % (Auto) 54.2 Lymph % (Auto) 13.4 Grayson % (Auto) 23.9 Eos % (Auto) 7.1 Baso % (Auto) 1.2 Immature Gran # (Auto) 0.01 Neut # (Auto) 3.15 Lymph # (Auto) 0.78 L Grayson # (Auto) 1.39 H Eos # (Auto) 0.41 Baso # (Auto) 0.07 Sodium 135 L Potassium 3.7 Chloride 104 Carbon Dioxide 24 Anion Gap 7.0 BUN 12 Creatinine 0.78 Est Cr Clr Drug Dosing 87.6 Est GFR ( Amer) 113.7 Est GFR (Non-Af Amer) 98.1 BUN/Creatinine Ratio 15.0 Glucose 101 H Calcium 8.6 Total Bilirubin 1.7 H AST 25 ALT 18 Alkaline Phosphatase 78 Ammonia Total Protein 7.2 Albumin 2.8 L Globulin 4.4 H Albumin/Globulin Ratio 0.6 L Tumor Marker AFP 3669.0 H 07/31/18 05:54 WBC RBC Hgb Hct MCV MCH MCHC RDW Std Deviation RDW Coeff of Mitchell Plt Count MPV Immature Gran % (Auto) Neut % (Auto) Lymph % (Auto) Grayson % (Auto) Eos % (Auto) Baso % (Auto) Immature Gran # (Auto) Neut # (Auto) Lymph # (Auto) Grayson # (Auto) Eos # (Auto) Baso # (Auto) Sodium Potassium Chloride Carbon Dioxide Anion Gap BUN Creatinine Est Cr Clr Drug Dosing Est GFR ( Amer) Est GFR (Non-Af Amer) BUN/Creatinine Ratio Glucose Calcium Total Bilirubin AST ALT Alkaline Phosphatase Ammonia 80.0 H Total Protein Albumin Globulin Albumin/Globulin Ratio Tumor Marker AFP
--- NOTE | 2018-07-31 13:22 | Discharge Summary ---
Date of Service July 31, 2018 Admission HPI Per Admitting Provider Isaac Roach is a 62-year-old male admitted medically on 07/29/2018 due to decompensation of cirrhosis of liver due to chronic hepatitis C and history of alcoholism. Patient was confused upon admission due to hyperammonemia and on day of consultation had received a paracentesis to assist with ascites. It was reported that psychiatric consultation was requested by patient's fianc�, who is concerned about the possibility of depression. Patient's case was reviewed with psychiatric nurse liaison and supervising psychiatrist. Patient was agreeable to conversation with this provider, giving verbal permission for his fianc�e, Mariah, to remain in the room during our discussion. Patient states he has not noticed a significant change in mood over the past several months. He does admit that he was laid off of employment and has been experiencing increased medical concerns within the last 3-4 months. It was reported the patient has had 4 hospital admissions since May 2018. Patient denies low mood, feeling he is not actively depressed. He denies any changes in appetite or energy level. Patient states that he has been attending to ADLs regularly and denies decreased motivation to complete daily tasks. Patient does admit to an increase in the amount of sleep that he gets throughout the day, explaining that while off work he spends more time in front of the television - therefore dozing off. Patient does not feel that this is related to mood concerns, isolation, retreating to bed to escape stressors. Jasmina� reports that patient had made statements on day of admission including a desire to "give up up". Fianc� questions if this was related to confusion on admission due to medical condition. Patient states that he has no recollection of these comments, and denies a desire to "give up". Patient denies any suicidal ideation or thoughts to self-harm. He denies homicidal ideation, auditory or visual hallucinations, or any other delusions/paranoia. Both patient and his fianc�e deny any safety concerns, and both report feeling comfortable with patient returning to home or other discharge planning per primary medical team. Patient denies previous psychiatric history, stating he has never been on antidepressant or antianxiety medications. He does admit to a period of several months in which she spoke with a counselor, stating this was many years ago. Patient does not feel that therapeutic intervention is necessary, as he does not believe that there is anything to treat. Patient is also not interested in psychiatric medications of any kind at this time. Patient and jasmina� confirmed that crisis numbers are posted on the refrigerator at home if necessary, as jasmina� states she personally has a rather significant psychiatric history. Because of this, the jasmina� is also aware of outpatient psychiatric resources should the patient desire therapy or psychiatric medications in the future. Admission Exam Per Admitting Provider Constitutional: WD/WN, vitals as above Eyes: PERRL, conjunctivae normal, anicteric sclerae EOM intact bilaterally ENMT: external ear and nose normal, oropharynx normal Neck: trachea midline, no thyromegaly normal visual inspection Respiratory: normal respiratory effort, lungs clear to auscultation Cardiovascular: RRR, no murmur, no edema Gastrointestinal (Abdomen): Inspection/Auscultation: + abdomen distended and + abdominal edema Percussion/Palpation: + hernia and + ascites Neurologic: PERRL, EOMI, accommodation nl, no face palsy, no dysarthria CN's II-XI intact bilaterally Psychiatric: Orientation: alert and cooperative Principal Diagnosis HEPATIC ENCEPHALOPATHY, ASCITES, LIVER CIRRHOSIS Discharge Exam General- oriented x 3, not in distress, speaks in sentences with no effort or accessory muscle use Eyes- anicteric Neck- no JVD Lungs- clear breath sounds bilaterally, no rales/wheezes Heart- normal rate, regular rhythm; no murmurs Abdomen- normal bowel sounds, (+) mild distention but soft (+) umbilical hernia- nontender Extremities- no pretibial edema, no calf tenderness Neuro- alert, oriented x 3; no gross focal neurologic deficits Skin- warm & dry Discharge Data Allergies Allergy/AdvReac Type Severity Reaction Status Date / Time iodine Allergy Unknown Unknown Verified 07/29/18 14:37 shellfish derived Allergy Unknown Hives and Verified 07/29/18 14:37 respiratory problems Consultations 07/29/18 16:32 ED Decision to Admit Stat 07/29/18 17:34 Consult Case Management - Discharge Planning Routine 07/29/18 19:29 Consult Psychiatry Routine 07/30/18 08:00 Consult Gastroenterology Routine Ordered Studies 07/30/18 09:44 CT head/brain wo con Routine FINDINGS: No intra or extra-axial mass lesions are visualized. There is no CT evidence of acute cortical infarction. There is no evidence of midline shift. There is no acute hemorrhage. No calvarial fractures are visualized. There are patchy white matter hypodensities likely on a small vessel basis. There is no evidence of pathologic ventricular dilatation. There is no evidence of acute sinusitis IMPRESSION: No acute intracranial findings 07/30/18 10:00 US paracentesis abd w/image Routine 07/30/18 11:08 US abdomen limited Routine IMPRESSION: Ultrasound-guided paracentesis with removal of 3 liters of ascites. 1 L of ascites was sent to the laboratory for analysis as ordered. IMPRESSION: 1. Cirrhosis. No sonographic evidence of hepatic mass. 2. Ascites. 3. Nonspecific heterogeneity of the pancreas. Hospital Course (1) Decompensation of cirrhosis of liver: chronic Hepatitis C per Dr. Dalal's notes: -62 y/o male w HCV (genotype 1a, treatement naive), ETOH cirrhosis complicated by ascites formation, portal HTN -presents to the ED on 07/29/18 with confusion and initial blurred vision and was found to have elevated ammonia levels of 114. Patient has been taking Lasix and spirolactone at home. He is not on lactulose because he reports he has not been prescribed those medications. He reports at home 2 bowel movements regularly -fiancee at the bedside and reports that patient is not drinking alcohol in at least 3 months -review of outpatient notes that patient was referred to Transplant clinic in April 2018 for consideration of transplant evaluation but appointment was cancelled due to lack of health insurance and denied medical assistance -abdomen distention improved after paracentesis of the ascites fluid on 07/30/18. removal of 3 liters of ascites with albumin -analysis of the the peritoneal fluid does not show evidence of spontaneous bacterial peritonitis as WBC only 118/ul. -with a SAAG greater than 1.2 and peritoneal fluid protein less than 2.5, the studies strongly suggestive ascites is from cirrhosis - echo: preserved EF - management of hepatic encephalopathy and ascites noted below (2) Hyperammonemia: Hepatic Encephalopathy given Lactulose 30g TID, patient had 3-4 loose BMs/day back to baseline mental status ammonia level down continue Lactulose at home ff up with GI as outpatient- clinic to call patient (3) Ascites: s/p Paracentesis draining 3 L no signs of SBP increase Lasix to 40mg from 20mg po daily continue Aldactone 100mg po daily repeat chem panel on ff up with PCP 08/05/18 Possible depression -Johny Lemus: [phone] concerned patient has depression -psychiatry service evaluated the patient, does not meet criteria for depressive disorder, coping reasonably well monitor and ff up as outpatient PT/OT evaluation - recommend return home Disposition d/c home today ff up with PCP Dr. Antoine Sun 10:45am. ff up with GI as scheduled (clinic to call patient) Total Time Total Time Spent Total Time Spent (In Minutes): 45 mins Discharge Plan Discharge Items Patient Disposition: Home - Self-Care Reason For Visit: CONFUSION, ELEVATED AMMONIA LEVELS, CIRRHOSIS Discharge Diagnosis: HEPATIC ENCEPHALOPATHY, ASCITES, LIVER CIRRHOSIS Discharge Goals: Diagnostic testing and Therapeutic intervention Activity: As commented below Activity Comment: NO HEAVY EXERTION UNTIL RE-EVALUATED BY PRIMARY CARE PHYSICIAN Lifting: Wait until after follow-up appointment Exercise/Sports: Wait until after follow-up appointment Driving/Machine Use Comment: NO DRIVING UNTIL ALLOWED BY PRIMARY CARE PHYSICIAN Non-emergency contact: Primary Care Provider Call non-emergency contact if: you have any medication questions, your symptoms worsen and you have a fever Follow-up/Referrals: Steve Gatica MD [Primary Care Provider] - Diet: Heart Healthy Addtl Provider Instructions: FOLLOW UP WITH PRIMARY CARE PHYSICIAN AT THE [facility]- DR. ANTOINE ON Sunday08/05/18 AT 10:45AM. PLEASE CALL THE PRIMARY CARE PHYSICIAN OR RETURN TO ER IMMEDIATELY IF WITH RECURRENCE/WORSENING OF SYMPTOMS, FEVER/CHILLS, SLEEPINESS, CONFUSION, INCREASING ABDOMINAL PAIN/DISTENTION. TAKE LACTULOSE 30G (45ML) 2-3X A DAY TO ACHIEVE 2-3 LOOSE BOWEL MOVEMENTS A DAY. NO ALCOHOL OR SMOKING. Prescriptions: New lactulose 20 gram/30 mL solution 30 gm PO UD Qty: 2000 RF: 2 furosemide [Lasix] 40 mg tablet 40 mg PO DAILY Qty: 30 RF: 2 Continued multivitamin Tablet 1 tab PO QAM RF: 0 spironolactone 100 mg tablet 100 mg PO QAM RF: 0 Discontinued furosemide 20 mg tablet 20 mg PO QAM RF: 0 Stand-Alone Forms: [facility] Discharge Orders: Discharge Order (Routine); Ordered 07/31/18 Ordered By: Maurisio Treviño Admission Data Admit Date/Time: 07/29/18 17:04 Attending Provider: Maurisio Treviñoit Provider: Bradly Dalal Primary Care Provider: Steve Gatica Other Providers: Bradly Dalal ; Velia Tyler ; Rena Auguste Service: Medical
== END 2018-07-31 14:45 | disposition home or self-care (01) | DRG 433 ==
LOC: ED 12:57 → SUATTDRO 17:04 → 2N 17:04

== ENCOUNTER 2018-08-27 14:08 | Inpatient (IN) ==
[2018-08-27] MEDS ORDERED: MoRPHine SULFATE 4 MG/ML 1 ML CARP\\VIAL IV STA ×2 (16:06→18:39)
[2018-08-27] MEDS ORDERED: ONDANSETRON INJ 2 MG/ML 2 ML VIAL IV STA (16:06)
[2018-08-27] MEDS ORDERED: SODIUM CHLORIDE 0.9% 500 ML IV SCH (16:15)
[2018-08-27 16:29] LABS: Basophils # (auto) 0.04 K/uL (0-0.2); Basophils % (auto) 0.5 %; Eosinophils # (auto) 0.04 K/uL (0-0.5); Eosinophils % (auto) 0.5 %; Hematocrit (blood only) 36.8 % (42-52); Hemoglobin 13.4 g/dL (14.0-18.0); Immature Granulocytes # (auto) 0.03 K/uL (0.00-0.02); Immature Granulocytes % (auto) 0.4 %; Lymphocytes # (auto) 0.85 K/uL (1.2-3.4); Lymphocytes % (auto) 11.1 %; Mean Corpuscular Hgb Conc 36.4 g/dL (32-36); Mean Corpuscular Volume 96.8 fL (80-100); Mean Platelet Volume 9.1 fL (7.4-10.4); Monocytes # (auto) 0.43 K/uL (0.11-0.59); Monocytes % (auto) 5.6 %; Neutrophils # (auto) 6.28 K/uL (1.4-6.5); Neutrophils % (auto) 81.9 %; Platelet Count 157 K/uL (130-400); RDW Coefficient of Variation 14.1 % (11.5-14.5); RDW Standard Deviation 49.8 fL (36.4-46.3); White Blood Count 7.67 K/uL (4.8-10.8)
[2018-08-27 16:40] LABS: INR 1.5 (0.9-1.1); Prothrombin Time 14.8 Seconds (9.0-12.0)
[2018-08-27 16:53] LABS: Albumin Level 2.9 gm/dl (3.4-5.0); BUN Creatinine Ratio 12.8 (10-20); Calcium 9.6 mg/dl (8.5-10.1); Est GFR (African American) 60.3
[2018-08-27 16:56] LABS: Albumin Globulin Ratio 0.4 (0.9-2); Globulin 6.6 gm/dl (2.5-4.0); Total Protein 9.5 gm/dl (6.4-8.2)
[2018-08-27] MEDS ORDERED: LACTULOSE SYRUP 20 GM/30 ML UDC PO STA (17:27)
[2018-08-27 18:04] LABS: Appearance Urine Clear (Clear); Bacteria Urine Automated Negative (Negative); Bilirubin Urine Negative (Negative); Blood Urine 2+ (Negative); Color Urine Orange; Glucose Urine UA Negative (Negative); Ketones Urine Negative (Negative); Leukocyte Esterase Urine Negative (Negative); Nitrite Urine Negative (Negative); Protein Urine Negative (Negative); Specific Gravity Urine 1.013 (1.000-1.030); Urobilinogen Urine Negative (Negative); pH Urine 6.5 (4.5-7.5)
--- NOTE | 2018-08-27 18:09 | CT Scan Report ---
CT abd pelvis wo con CLINICAL HISTORY: 63 years-old Male presenting with ab pain, RUQ, h/o cirrhosis. TECHNIQUE: Multidetector CT of the abdomen and pelvis was performed without the use of intravenous co ntrast. IV contrast: None. One or more dose lowering techniques were used consistent with the princip les of ALARA (as low as reasonably achievable), including automatic exposure control, mA or kV adjust ment to individual patient size, and/or use of iterative reconstruction. COMPARISON: None. CT DOSE (mGy.cm): The estimated cumulative dose is 290.65 mGy.cm. FINDINGS: [employer] topogram: Unremarkable. Lung bases: Normal heart size. No pericardial or pleural effusion. Atelectasis or scarring noted at t he lung bases. Few cysts or emphysematous changes noted. Liver: Cirrhotic morphology of the liver. Underlying lesion noted in the left hepatic lobe and potent ially also the inferior right hepatic lobe. Normal density of the liver parenchyma. Biliary: No gross biliary ductal dilatation allowing for noncontrast technique. Wall thickening of th e gallbladder is suggested in a physiologically distended lumen, nonspecific. Pancreas: Normal noncontrast appearance. Spleen: Normal noncontrast appearance. The spleen is not enlarged. Adrenal glands: Normal noncontrast appearance. Kidneys and ureters: Few hyperdense lesions in the left kidney likely hemorrhagic or proteinaceous cy sts. Multiple nonobstructing right renal calculi the largest measuring 7 mm. No hydronephrosis. Urete rs nondistended. Bladder: Normal. Pelvic organs: Normal noncontrast appearance. Bowel: Normal noncontrast appearance. No bowel obstruction. Small hiatal hernia. Mild distention of t he distal esophagus. Small duodenal diverticulum at the level of the pancreatic head. Peritoneal cavity: Large volume simple appearing ascites. No free intraperitoneal gas. Mild diffuse i nfiltration of the mesentery. Lymph nodes: No gross lymphadenopathy allowing for noncontrast technique. Vasculature: Atherosclerosis of the normal caliber abdominal aorta. There is a suspected in the perig astric region as well as the mesentery. Abdominal wall: Normal. Musculoskeletal: Degenerative changes of the spine. IMPRESSION: 1. Large volume ascites in the setting of cirrhosis. 2. At least one suspected underlying lesion in the liver, which raises concern for hepatocellular ca rcinoma. This would require a dedicated contrast-enhanced CT or MR for diagnosis. 3. Possible underlying varices suspected the perigastric region. 4. Nonobstructing right nephrolithiasis. Electronically signed by: Miguel Barnes M.D. 08/27/2018 6:08 PM
[2018-08-27] MEDS ORDERED: cefTRIAXone SODIUM 1,000 MG/50 ML BAG IV STA (18:39)
[2018-08-27] MEDS ORDERED: SODIUM CHLORIDE 0.9% 1000ML 500 ML IV ONE (18:39)
--- NOTE | 2018-08-27 19:41 | History & Physical Report ---
Date of Service August 27, 2018 Assessment & Plan (1) Abdominal pain: (2) Cirrhosis: (3) Ascites: -admit to med/surg with tele -patient presenting from home with reports of increasing abdominal pain, N/V, lethargy, disorientation -in the ED, CT abd/pelvis showing large volume ascites and exam reveals a distended, tender abdomen -high concern for SBP -currently afebrile, no leukocytosis; does not appear septic -received 1gm ceftriaxone in the ED, will give an additional 1 g now to cover appropriately for SBP; continue with 2 g daily tomorrow -Case was discussed with Dr. Olmedo from GI, will give albumin 1.5 g/kg for 1 dose -Will obtain diagnostic paracentesis tonight -discussed with radiology Dr. Barnes -Follow-up blood, urine, peritoneal cultures -Given ENRIKE and abdominal distention on exam, will hold lactulose and utilize rifaximin 550 mg twice daily -CT abd/pelvis also showing liver lesion concerning for HCC - likely will need dedicated imaging study with contrast once renal functions improves (4) ENRIKE (acute kidney injury): -pre-renal vs. hepatorenal syndrome -discussed with GI - will hold diruetics for now -check urine lytes (5) Hyponatremia: -likely hypervolumic hyponatremia from significant ascites -should improve with IV albumin infusions -will monitor Na+ closely (6) DVT prophylaxis: -SQ heparin History of Present Illness Chief Complaint: Abdominal pain, lethargy, nausea/vomiting Primary Care Provider: Sirena Sadler DO 63-year-old male who presents the ED with abdominal pain, lethargy, nausea, vomiting. Patient with history of HCV and alcoholic cirrhosis. Most recently admitted to [facility] 07/29 through 07/31 for decompensated cirrhosis. During that admission, patient underwent a 3 L paracentesis and was started on lactulose and Lasix was increased. Patient has been following with the [facility] transplant team. Over the past 1 week, patient has noted increasing generalized weakness, lethargy, disorientation. Over the past 3 days, he notes increasing abdominal pain. Last evening he developed vomiting and has had several episodes with also dry heaves. He denies hematemesis or coffee-ground emesis. Previously, patient reports he was having 2-3 loose bowel movements per day however more recently he has been having 2 formed bowel movements. He has felt chills however did not take his temperature. No rigors. He denies chest pain or shortness of breath. He has felt lightheaded and dizzy however denies any syncopal events. He denies any urinary symptoms. In the ED, labs show Na+ 124, creatinine 1.4, total bili 4.0, AST 39, ALT 22, alk phos 132, ammonia 41.1. CT ABD/pelvis shows large volume ascites and a concerning lesion on the liver for hepatocellular carcinoma. Patient was given IVF, IV Zofran, IV morphine, lactulose 30 g p.o., ceftriaxone 1 g IV. Allergies Allergy/AdvReac Type Severity Reaction Status Date / Time iodine Allergy Unknown Unknown Verified 08/27/18 16:45 shellfish derived Allergy Unknown Hives and Verified 08/27/18 16:45 respiratory problems Home Medications Home Medications Medication Instructions Recorded Confirmed Type multivitamin 1 tab PO QAM 05/26/18 08/27/18 History spironolactone 100 mg PO QAM 07/10/18 08/27/18 History furosemide [Lasix] 40 mg PO DAILY #30 tab 07/31/18 08/27/18 Rx lactulose [Constulose] 10 g PO UD 08/27/18 08/27/18 History Past Med/Surg History Medical History Ascites (Chronic) Cirrhosis (Chronic) 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) Alcohol use disorder (Chronic) Tobacco use disorder (Chronic) Hepatitis C (Chronic) Surgical History History of esophagogastroduodenoscopy (EGD) Family History Father Cancer Mother Diabetes Kidney disease Social History Preferred Language: Thai Communication Ability: Effective Visual Impairment: No Limitations Hearing Ability: Normal Beliefs That Will Affect Care: None marital status: Life Partner Current Living Situation: Significant Other current occupational status: unemployed Feels Safe at Home: Yes Smoking Status: Current every day smoker Tobacco Type: cigarettes Cigarettes Per Day: 20 Second Hand Exposure: No Hx Alcohol Use: No Hx Substance Use: No Review of Systems Review of Systems: ROS per HPI, all other systems reviewed and negative Physical Exam Constitutional: WD/WN, vitals as above Eyes: PERRL, conjunctivae normal, anicteric sclerae ENMT: external ear and nose normal, oropharynx normal Respiratory: normal respiratory effort; no respiratory distress Auscultation: + diminished lung sounds Cardiovascular: Rate/Rhythm: regular rate and regular rhythm Vessels: normal peripheral pulses Extremities: no edema Gastrointestinal (Abdomen): Inspection/Auscultation: + abdomen distended and normal bowel sounds Percussion/Palpation: + abdomen tender (LLQ, LUQ) and + abdomen firm Musculoskeletal: no cyanosis or clubbing, extremities motor strength 5/5 Skin: no rashes, warm and dry + jaundice Neurologic: PERRL, EOMI, accommodation nl, no face palsy, no dysarthria Psychiatric: A+Ox3, euthymic affect Results & Data Vital Signs (Past 12 Hours) Vital Signs Temp Pulse Resp BP Pulse Ox 08/27/18 16:30 99 08/27/18 14:44 36.7 C 67 20 128/81 100 Laboratory Results Short CBC 08/27/18 Range/Units 16:19 WBC 7.67 (4.8-10.8) K/uL Hgb 13.4 L (14.0-18.0) g/dL Hct 36.8 L (42-52) % Plt Count 157 (130-400) K/uL BMP 08/27/18 16:19 Sodium 124 L Potassium 5.0 Chloride 91 L Carbon Dioxide 26 BUN 18 Creatinine 1.44 H Glucose 98 Calcium 9.6 Liver Function 08/27/18 Range/Units 16:19 Total Bilirubin 4.0 H (0.2-1) mg/dl AST 39 H (15-37) U/L ALT 22 (12-78) U/L Alkaline Phosphatase 132 H (45-117) U/L Albumin 2.9 L (3.4-5.0) gm/dl Urine 08/27/18 Range/Units 17:50 Urine Color [place] Urine Appearance Clear (Clear) Urine pH 6.5 (4.5-7.5) Ur Specific [place] 1.013 (1.000-1.030) Urine Protein Negative (Negative) Urine Glucose (UA) Negative (Negative) Diagnostic Findings CT ABD/PELVIS IMPRESSION: 1. Large volume ascites in the setting of cirrhosis. 2. At least one suspected underlying lesion in the liver, which raises concern for hepatocellular carcinoma. This would require a dedicated contrast-enhanced CT or MR for diagnosis. 3. Possible underlying varices suspected the perigastric region. 4. Nonobstructing right nephrolithiasis. Code Status & VTE Plan VTE Prophylaxis Plan VTE Prophylaxis will be ordered: Yes Supervising Physician Co-Signing Physician Notes I have seen and examined the patient and have discussed the case with the provider above. I agree with the assessment and plan as stated with the following exceptions. Active issues include: 1. Decompensated cirrhosis-large volume ascites is present and poss SBP with tense, firm abdomen and recent chills. Urgent paracentesis being performed tonight. Pt will need albumin 1.5mg/kg today and on 1mg/kg Day 3 per guidelines. Cont Ceftriaxone 2gm daily and await results. Hold diuretics at this time. 2. Hypervolemic hyponatremia-colloid infusion. Trend q2hrs initially and hold albumin if >8pts in 24 hrs. He did receive 1L IVF in the ER and went from 124 to 129 already today. Cont to monitor this overnight. 3. ENRIKE-2/2 above. Albumin to prevent further deterioration. Trend BMP in am. Urine lytes ordered. 4. Severe protein-calorie malnutrition-significant 15-20 lb weight loss over the last couple of months. Malignancy possibly present with new liver lesion. Will require dedicated liver imaging once ENRIKE improves. Defer to GI 5. Liver lesion-as above. High likelihood for malignancy in setting of recent elevated AFP as outpatient and combined HCV/cirrhosis. 6. HCV My physical exam performed separately reflects the findings listed above. DO Elías (1) Cirrhosis Ascites presence: with ascites Hepatic cirrhosis type: alcoholic cirrhosis Qualified Code(s): K70.31 - Alcoholic cirrhosis of liver with ascites (2) Abdominal pain Abdominal location: right upper quadrant Qualified Code(s): R10.11 - Right upper quadrant pain
--- NOTE | 2018-08-27 21:27 | Emergency Department Note ---
Entered by Linnea Ness acting as a scribe for History of Present Illness General Chief complaint: Pain (Generalized) Stated complaint: EXTREME PAIN,SPITTING UP PHLEGM Time Seen by Provider: 08/27/18 15:58 Source: patient and family () History of Present Illness Onset (ago): day(s) (several) Location: abdomen Radiation: back Pain Consistency: + other (persistent ) Associated symptoms: + loss of appetite and + other (positive spitting up phlegm; negative penile pain; negative testicular pain; positive disorientation when standing) Treatments prior to arrival: other (Aleve) The patient is a 63 year old male w/ PMHx of cirrhosis who presents to the ED w/ CC of persistent abdominal pain beginning several days prior to arrival. The patient states that his pain radiates around to his back. He reports loss of appetite recently, and states that he has been spitting up phlegm during this time. The patient denies penile or testicular pain. The patient reports feeling disoriented when standing during this time. The patient's reports that the patient took Aleve previously for his symptoms, but states that this did not relieve them. The patient's states that the patient has previously had fluid taken off of his abdomen 4 times. Home Medications Home Medications Medication Instructions Recorded Confirmed Type multivitamin 1 tab PO QAM 05/26/18 08/27/18 History spironolactone 100 mg PO QAM 07/10/18 08/27/18 History furosemide [Lasix] 40 mg PO DAILY #30 tab 07/31/18 08/27/18 Rx lactulose [Constulose] 10 g PO UD 08/27/18 08/27/18 History Allergies Allergy/AdvReac Type Severity Reaction Status Date / Time iodine Allergy Unknown Unknown Verified 08/27/18 16:45 shellfish derived Allergy Unknown Hives and Verified 08/27/18 16:45 respiratory problems Past Med/Surg History Medical History Ascites (Chronic) Cirrhosis (Chronic) 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) Alcohol use disorder (Chronic) Tobacco use disorder (Chronic) Hepatitis C (Chronic) Surgical History History of esophagogastroduodenoscopy (EGD) Family History Father Cancer Mother Diabetes Kidney disease Social History Preferred Language: Malagasy Communication Ability: Effective Visual Impairment: No Limitations Hearing Ability: Normal Beliefs That Will Affect Care: None marital status: Life Partner Current Living Situation: Significant Other current occupational status: unemployed Feels Safe at Home: Yes Smoking Status: Current every day smoker Tobacco Type: cigarettes Cigarettes Per Day: 20 Second Hand Exposure: No Hx Alcohol Use: No Hx Substance Use: No Review of Systems See HPI for pertinent positives & negatives. and A total of 10 systems reviewed and were otherwise negative Physical Exam Vital Signs Vital Signs - 24 hr 08/27/18 14:44 08/27/18 16:30 Temperature 36.7 C Temperature Source Oral Sepsis Recent Fever Within 48 Hours No Sepsis New/Unexplained Change in Mental Status No Sepsis Action Taken by Nursing No Action Required Pulse Rate 67 Respiratory Rate 20 Respiratory Effort / Characteristics Non-Labored Spontaneous Respiratory Depth Normal Respiratory Pattern Regular Blood Pressure 128/81 Blood Pressure Mean 96 Blood Pressure Position Sitting Pulse Oximetry 100 99 Oxygen Delivery Method Room Air Room Air GENERAL: Chronically ill in appearance, well nourished, NAD, non-toxic. EYE EXAM: Normal conjunctiva. PERRL, no anisocoria and EOM's grossly intact w/o pain. OROPHARYNX: Moist mucus membranes. Grossly normal dentition. NECK: Supple, no nuchal rigidity, no adenopathy, non-tender. no signs of meningismus. LUNGS: Clear to auscultation. Normal chest wall mechanics. HEART: NSR, no MRG. ABDOMEN: Mild diffuse abdominal discomfort, worse in the right upper quadrant. No abdominal distention. No fluid wave appreciated. Abdomen soft, normo-active bowel sounds, no masses, no rebound or guarding. BACK: No CVA TTP. SKIN: No rashes and no bruising. UPPER EXTREMITIES: Upper extremities are grossly normal. LOWER EXTREMITIES: No pitting edema. No calf pain. NEURO EXAM: A&O x3, cranial nerves II-XII grossly intact, normal speech, moves all 4 extremities on command w/o issue. Course 1601: Past medical records reviewed. The patient was evaluated in room B5. A complete history and physical exam was performed. 180: I checked on and updated the patient on all results. 1840: I discussed the case with Izabela LOW who accepts the patient for further evaluation under Dr. Camejo Hospitalist service. Consultations Consultation #1: I discussed the case with Izabela LOW who accepts the patient for further evaluation under Dr. Camejo Hospitalist service. Time: 18:40 Administered Medications Discontinued Medications Sodium Chloride (Nss) 500 mls @ 999 mls/hr IV .Q31M VARUN Stop: 08/27/18 16:45 Last Infusion: 08/27/18 19:54 Dose: 0 mls/hr Documented by: [id number] Admin: 08/27/18 16:26 Dose: 999 mls/hr Documented by: [id number] Sodium Chloride (Nss 1000ml) 500 mls @ 999 mls/hr IV .Q31M ONE Stop: 08/27/18 19:09 Last Infusion: 08/27/18 19:54 Dose: 0 mls/hr Documented by: [id number] Admin: 08/27/18 19:03 Dose: 999 mls/hr Documented by: [id number] Ceftriaxone Sodium (Rocephin) 1,000 mg in 50 mls @ 100 mls/hr IV NOW STA Stop: 08/27/18 19:08 Last Infusion: 08/27/18 19:54 Dose: 0 mls/hr Documented by: [id number] Admin: 08/27/18 19:03 Dose: 100 mls/hr Documented by: [id number] Lactulose (Chronulac) 30 gm PO NOW STA Stop: 08/27/18 17:28 Last Admin: 08/27/18 17:39 Dose: 30 gm Documented by: [id number] Morphine Sulfate (Morphine Sulfate) 4 mg IV NOW STA Stop: 08/27/18 16:07 Last Admin: 08/27/18 16:26 Dose: 4 mg Documented by: [id number] Morphine Sulfate (Morphine Sulfate) 4 mg IV NOW STA Stop: 08/27/18 18:40 Last Admin: 08/27/18 19:03 Dose: 4 mg Documented by: [id number] Ondansetron HCl (Zofran) 4 mg IV NOW STA Stop: 08/27/18 16:07 Last Admin: 08/27/18 16:26 Dose: 4 mg Documented by: [id number] Medical Decision Making Medical Records Attestation: I reviewed the patient's medical records. Home Medications Current Medication List: was personally reviewed by me Laboratory Data Attestation: I reviewed the patient's lab results. Result diagrams: 08/27/18 16:19 08/27/18 16:19 Lab Results 08/27/18 08/27/18 08/27/18 Range/Units 16:19 16:19 16:19 WBC 7.67 (4.8-10.8) K/uL RBC 3.80 L (4.7-6.1) M/uL Hgb 13.4 L (14.0-18.0) g/dL Hct 36.8 L (42-52) % MCV 96.8 (80-100) fL MCH 35.3 H (25-34) pg MCHC 36.4 H (32-36) g/dL RDW Std Deviation 49.8 H (36.4-46.3) fL RDW Coeff of [place] 14.1 (11.5-14.5) % Plt Count 157 (130-400) K/uL MPV 9.1 (7.4-10.4) fL Immature Gran % (Auto) 0.4 % Neut % (Auto) 81.9 % Lymph % (Auto) 11.1 % [place] % (Auto) 5.6 % Eos % (Auto) 0.5 % Baso % (Auto) 0.5 % Immature Gran # (Auto) 0.03 H (0.00-0.02) K/uL Neut # (Auto) 6.28 (1.4-6.5) K/uL Lymph # (Auto) 0.85 L (1.2-3.4) K/uL [place] # (Auto) 0.43 (0.11-0.59) K/uL Eos # (Auto) 0.04 (0-0.5) K/uL Baso # (Auto) 0.04 (0-0.2) K/uL PT 14.8 H (9.0-12.0) Seconds INR 1.5 H (0.9-1.1) Sodium 124 L (136-145) mmol/L Potassium 5.0 (3.5-5.1) mmol/L Chloride 91 L (98-107) mmol/L Carbon Dioxide 26 (21-32) mmol/L Anion Gap 8.0 (3-11) BUN 18 (7-18) mg/dl Creatinine 1.44 H (0.6-1.4) mg/dl Est Cr Clr Drug Dosing 43.0 ml/min Est GFR ( Amer) 60.3 Est GFR (Non-Af Amer) 52.0 BUN/Creatinine Ratio 12.8 (10-20) Glucose 98 (70-99) mg/dl Calcium 9.6 (8.5-10.1) mg/dl Total Bilirubin 4.0 H (0.2-1) mg/dl AST 39 H (15-37) U/L ALT 22 (12-78) U/L Alkaline Phosphatase 132 H (45-117) U/L Ammonia (11-32) umol/L Total Protein 9.5 H (6.4-8.2) gm/dl Albumin 2.9 L (3.4-5.0) gm/dl Globulin 6.6 H (2.5-4.0) gm/dl Albumin/Globulin Ratio 0.4 L (0.9-2) Lipase 444 H (73-393) U/L Urine Color Urine Appearance (Clear) Urine pH (4.5-7.5) Ur Specific [place] (1.000-1.030) Urine Protein (Negative) Urine Glucose (UA) (Negative) Urine Ketones (Negative) Urine Blood (Negative) Urine Nitrite (Negative) Urine Bilirubin (Negative) Urine Urobilinogen (Negative) Ur Leukocyte Esterase (Negative) Urine WBC (Auto) (0-5) /hpf Urine RBC (Auto) (0-4) /hpf U Hyaline Cast (Auto) (0-5) /lpf U Epithel Cells (Auto) (0-5) /lpf Urine Bacteria (Auto) (Negative) 08/27/18 08/27/18 Range/Units 16:19 17:50 WBC (4.8-10.8) K/uL RBC (4.7-6.1) M/uL Hgb (14.0-18.0) g/dL Hct (42-52) % MCV (80-100) fL MCH (25-34) pg MCHC (32-36) g/dL RDW Std Deviation (36.4-46.3) fL RDW Coeff of Mitchell (11.5-14.5) % Plt Count (130-400) K/uL MPV (7.4-10.4) fL Immature Gran % (Auto) % Neut % (Auto) % Lymph % (Auto) % [place] % (Auto) % Eos % (Auto) % Baso % (Auto) % Immature Gran # (Auto) (0.00-0.02) K/uL Neut # (Auto) (1.4-6.5) K/uL Lymph # (Auto) (1.2-3.4) K/uL [place] # (Auto) (0.11-0.59) K/uL Eos # (Auto) (0-0.5) K/uL Baso # (Auto) (0-0.2) K/uL PT (9.0-12.0) Seconds INR (0.9-1.1) Sodium (136-145) mmol/L Potassium (3.5-5.1) mmol/L Chloride (98-107) mmol/L Carbon Dioxide (21-32) mmol/L Anion Gap (3-11) BUN (7-18) mg/dl Creatinine (0.6-1.4) mg/dl Est Cr Clr Drug Dosing ml/min Est GFR ( Amer) Est GFR (Non-Af Amer) BUN/Creatinine Ratio (10-20) Glucose (70-99) mg/dl Calcium (8.5-10.1) mg/dl Total Bilirubin (0.2-1) mg/dl AST (15-37) U/L ALT (12-78) U/L Alkaline Phosphatase (45-117) U/L Ammonia 41.1 H (11-32) umol/L Total Protein (6.4-8.2) gm/dl Albumin (3.4-5.0) gm/dl Globulin (2.5-4.0) gm/dl Albumin/Globulin Ratio (0.9-2) Lipase (73-393) U/L Urine Color [place] Urine Appearance Clear (Clear) Urine pH 6.5 (4.5-7.5) Ur Specific [place] 1.013 (1.000-1.030) Urine Protein Negative (Negative) Urine Glucose (UA) Negative (Negative) Urine Ketones Negative (Negative) Urine Blood 2+ H (Negative) Urine Nitrite Negative (Negative) Urine Bilirubin Negative (Negative) Urine Urobilinogen Negative (Negative) Ur Leukocyte Esterase Negative (Negative) Urine WBC (Auto) 1-5 (0-5) /hpf Urine RBC (Auto) 10-30 H (0-4) /hpf U Hyaline Cast (Auto) 1-5 (0-5) /lpf U Epithel Cells (Auto) 5-10 H (0-5) /lpf Urine Bacteria (Auto) Negative (Negative) Imaging Data Radiologist's Impression: Radiology results as stated below per my review and the radiologist's interpretation: CT abd pelvis wo con CLINICAL HISTORY: 63 years-old Male presenting with ab pain, RUQ, h/o cirrhosis. TECHNIQUE: Multidetector CT of the abdomen and pelvis was performed without the use of intravenous contrast. IV contrast: None. One or more dose lowering techniques were used consistent with the principles of ALARA (as low as reasonably achievable), including automatic exposure control, mA or kV adjustment to individual patient size, and/or use of iterative reconstruction. COMPARISON: None. CT DOSE (mGy.cm): The estimated cumulative dose is 290.65 mGy.cm. FINDINGS: Patient Relations Coordinator topogram: Unremarkable. Lung bases: Normal heart size. No pericardial or pleural effusion. Atelectasis or scarring noted at the lung bases. Few cysts or emphysematous changes noted. Liver: Cirrhotic morphology of the liver. Underlying lesion noted in the left hepatic lobe and potentially also the inferior right hepatic lobe. Normal density of the liver parenchyma. Biliary: No gross biliary ductal dilatation allowing for noncontrast technique. Wall thickening of the gallbladder is suggested in a physiologically distended lumen, nonspecific. Pancreas: Normal noncontrast appearance. Spleen: Normal noncontrast appearance. The spleen is not enlarged. Adrenal glands: Normal noncontrast appearance. Kidneys and ureters: Few hyperdense lesions in the left kidney likely hemorrhagic or proteinaceous cysts. Multiple nonobstructing right renal calculi the largest measuring 7 mm. No hydronephrosis. Ureters nondistended. Bladder: Normal. Pelvic organs: Normal noncontrast appearance. Bowel: Normal noncontrast appearance. No bowel obstruction. Small hiatal hernia. Mild distention of the distal esophagus. Small duodenal diverticulum at the level of the pancreatic head. Peritoneal cavity: Large volume simple appearing ascites. No free intraperitoneal gas. Mild diffuse infiltration of the mesentery. Lymph nodes: No gross lymphadenopathy allowing for noncontrast technique. Vasculature: Atherosclerosis of the normal caliber abdominal aorta. There is a suspected in the perigastric region as well as the mesentery. Abdominal wall: Normal. Musculoskeletal: Degenerative changes of the spine. IMPRESSION: 1. Large volume ascites in the setting of cirrhosis. 2. At least one suspected underlying lesion in the liver, which raises concern for hepatocellular carcinoma. This would require a dedicated contrast-enhanced CT or MR for diagnosis. 3. Possible underlying varices suspected the perigastric region. 4. Nonobstructing right nephrolithiasis. Electronically signed by: Miguel Barnes M.D. 08/27/2018 6:08 PM Blood Pressure Blood Pressure Findings: Normal blood pressure MDM Narrative The patient is a 63 year old male w/ PMHx of cirrhosis who presents to the ED w/ CC of persistent abdominal pain beginning several days prior to arrival. Differential diagnosis: Etiologies such as appendicitis, diverticulitis, PUD, biliary pathology, UTI, pancreatitis, obstruction, mesenteric ischemia, aortic pathology, infections, inflammatory bowel disease, renal colic, as well as others were entertained. Patient was seen and evaluated the bedside. The patient was was complaining some abdominal pain. The patient does have a known history of cirrhosis and does follow with [facility]. Patient did have blood work completed along with a urinalysis and CT of the and pelvis. The patient has a normal white count. The patient does have some very trace anemia. INR is 1.5. The patient does have mild changes in his transaminases. T bili is at 4. The patient does have an elevated ammonia. He was given some lactulose. The patient CT does show some ascites. The patient did have blood cultures that have been drawn initially. After further discussion with the paola Suresh pending possible paracentesis. It is noted that patient may have some varices as well as the possibility of hepatocellular carcinoma. I did discuss some of these findings with the patient. The patient is agreeable for inpatient stay. I did speak the on-call hospitalist agreed to further evaluate treat the patient. Patient was admitted to the medicine service. Impression & Plan Abdominal pain, Cirrhosis, Hyponatremia, Hyperammonemia Discharge Plan Visit Data *Final* Discharge Date/Time: 08/27/18 20:08 Chief Complaint: Pain (Generalized) Stated Complaint: EXTREME PAIN,SPITTING UP PHLEGM ED Provider: Jonathan Adam Discharge Problem: Abdominal pain, Cirrhosis, Hyponatremia, Hyperammonemia Patient Disposition: Admitted As Inpatient Discharge Instructions Interventions: ED Discharge Assessment Last Done: 08/27/18 20:08 The scribe's documentation has been prepared under my direction and personally reviewed by me in its entirety. I confirm that the note above accurately reflects all work, treatment, procedures, and medical decision making performed by me.
[2018-08-27] MEDS ORDERED: cefTRIAXone SODIUM 1,000 MG in DEXTROSE 5% 50 ML IV ONE (21:30)
[2018-08-27 21:46] LABS: BUN Creatinine Ratio 15.2 (10-20); Calcium 9.1 mg/dl (8.5-10.1); Creatinine Clr Calc Pharmacy 49.5 ml/min; Est GFR (African American) 71.6; Est GFR (Non-African American) 61.8; Potassium 5.1 mmol/L (3.5-5.1)
[2018-08-27] MEDS ORDERED: HEPARIN SOD 5,000 UNIT/0.5 ML VIAL SQ SCH (22:00)
--- NOTE | 2018-08-27 22:07 | Ultrasound Report ---
US paracentesis abd w/image CLINICAL HISTORY: 63 years-old Male presenting with distended abdomen with pain in cirrhotic, r/o SBP . COMPARISON: 07/30/[address] from 08/27/2018. PROCEDURE: The procedure and its risks, benefits, and alternatives were discussed with the patient, and written informed consent was obtained. A timeout was performed to confirm patient identity. Limited ultrasound of the abdomen was performed to determine a safe needle entry site, and the site w as marker for paracentesis. The right lower quadrant was prepped and draped in the usual aseptic fashion. 1% Lidocaine was used f or local anesthesia. A paracentesis needle-sheath was inserted into the peritoneal space using ultrasound guidance. The ne edle was removed and the sheath was connected to tubing and a vacuum suction device. A total of 1 L o f clear yellow ascites was aspirated. The sheath was removed, and a dressing applied. The patient tolerated the procedure well. No immediate complications. IMPRESSION: Ultrasound-guided diagnostic paracentesis with aspiration of 1 L of ascites. Electronically signed by: Miguel Barnes M.D. 08/27/2018 10:06 PM
[2018-08-27] MEDS: ALBUMIN 25% 50 ML IV SCH ×2 (22:11→23:05)
[2018-08-27] MEDS: RIFAXIMIN 550 MG TABLET PO SCH (22:15)
[2018-08-27 22:38] LABS: Albumin Peritoneal Fluid 0.9 g/dl
[2018-08-27 22:57] LABS: Total Protein Peritoneal Fluid 2.5 g/dl
[2018-08-27 23:23] LABS: Calcium 9.2 mg/dl (8.5-10.1); Creatinine Clr Calc Pharmacy 45.2 ml/min; Est GFR (African American) 63.5; Est GFR (Non-African American) 54.8; Potassium 4.6 mmol/L (3.5-5.1)
[2018-08-28 00:12] LABS: Appearance Peritoneal Fluid CLEAR; Color Peritoneal Fluid YELLOW; Mononuclear WBC Peritoneal 89.6 %; Polynuclear WBC Peritoneal 10.4 %; RBC Peritoneal Fluid (A) < 3000 /uL; WBC Peritoneal Fluid (A) 156 /ul (0-300)
[2018-08-28] MEDS: ALBUMIN 25% 50 ML IV SCH ×5 (00:40→03:45)
[2018-08-28 00:48] LABS: BUN Creatinine Ratio 16.5 (10-20); Est GFR (African American) 75.2; Est GFR (Non-African American) 64.9; Potassium 4.5 mmol/L (3.5-5.1)
[2018-08-28] MEDS: MULTIVITAMIN TAB PO SCH (07:59)
[2018-08-28] MEDS: HEPARIN SOD 5,000 UNIT/0.5 ML VIAL SQ SCH ×2 (07:59→21:26)
[2018-08-28] MEDS: NICOTINE 14 MG/24 HR PATCH TD SCH (07:59)
[2018-08-28] MEDS: RIFAXIMIN 550 MG TABLET PO SCH ×2 (08:00→21:27)
[2018-08-28 08:04] LABS: Hematocrit (blood only) 27.3 % (42-52); Hemoglobin 9.5 g/dL (14.0-18.0); Mean Corpuscular Hgb Conc 34.8 g/dL (32-36); Mean Corpuscular Volume 97.8 fL (80-100); Mean Platelet Volume 9.1 fL (7.4-10.4); Platelet Count 123 K/uL (130-400); RDW Coefficient of Variation 14.1 % (11.5-14.5); RDW Standard Deviation 49.8 fL (36.4-46.3); Red Blood Count 2.79 M/uL (4.7-6.1)
[2018-08-28 08:08] LABS: INR 1.7 (0.9-1.1); Prothrombin Time 16.4 Seconds (9.0-12.0)
[2018-08-28 08:24] LABS: Albumin Level 3.4 gm/dl (3.4-5.0); BUN Creatinine Ratio 15.9 (10-20); Calcium 9.2 mg/dl (8.5-10.1); Creatinine Clr Calc Pharmacy 49.2 ml/min; Potassium 4.3 mmol/L (3.5-5.1)
[2018-08-28 08:27] LABS: Albumin Globulin Ratio 0.8 (0.9-2); Bilirubin,Total 2.3 mg/dl (0.2-1); Globulin 4.3 gm/dl (2.5-4.0); Total Protein 7.7 gm/dl (6.4-8.2)
--- NOTE | 2018-08-28 09:00 | Gastrointestinal Consultation ---
Date of Consultation August 28, 2018 Assessment & Plan (1) Cirrhosis: 63 yr old male with ETOH/HCV cirrhosis with ascites admitted with new abd pain, nausea, vomiting s/p diagnostic and therapeutic paracentesis. PMN not consistent w/ SBP. He did have two doses of IV ABX and recieve Albumin prior to paracentesis. He has known liver lesion, evaluated as an OP by transplant w/ planned MRI this upcoming week - Hepatic Duplex as noncon imaging unable to rule out PVT - Would continue 7 day course of ABX as paracentesis was completed after IV ABX x 2 - Low NA diet was recommend, 2 gm sodium diet. - Continue current diuretics 40/100 daily. - Titrate Lactulose to bowel movements 2-3 daily - MELD labs, HCC screen and OP hepatology and transplant follow up. Thank you for allowing us to participate in the care of this patient. Please call with any acute changes, questions or concerns. Please see addendum below with additional recommendation from my supervising physician. Present on Admission?: Yes Supervising Physician Co-Signing Physician Notes I have personally seen and examined the patient with DEVANTE Montenegro. Her note reflects my exam and findings. I agree with her impression and plan. "Feeling better today". Appropriate mental status. He should titrate lactulose dose to achieve 3-4 BMs a day. James Causey M.D. History of Present Illness Reason for Consultation: HE Requesting Physician: Elías Attending Physician: Michelle Mckinley, DO History of Present Illness 63 year old male with history of HCV genotype 1a, treatment naive and ETOH cirrhosis complicated by ascites formation requiring multiple paracenteses, portal HTN, recent admission w/ ongoing outpatient work up for HCC who presented to ED yesterday w lethargy, pain - GI asked to evaluate. Pt was seen and evaluated, chart reviewed. He notes that over the past 48 hours he started noticing lower abdominal pain, cramping associated w/ nausea. Yesterday felt quite tired, confused so sought care. In the ED he was hyponatremic, creatinine 1.4, total bili 4.0, AST 39, ALT 22, alk phos 132, ammonia 41.1. CT w/ large volume ascites and a concerning lesion on the liver for hepatocellular carcinoma. He underwent paracentesis w/ 1L off after 2 doses of IV ABX. This AM he feels well. Awake, alert and oriented. Answering all questions appropriately. No abdominal pain. Tolerating diet. Notes despite home dosing of lactulose only moving bowels once daily. Since admission has had two BMs. Denies black/bloody stools/emesis. 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) Alcohol use disorder (Chronic) Tobacco use disorder (Chronic) Hepatitis C (Chronic) Surgical History History of esophagogastroduodenoscopy (EGD) Family History Father Cancer Mother Diabetes Kidney disease Social History Preferred Language: [place] Communication Ability: Effective Visual Impairment: No Limitations Hearing Ability: Normal System Controller Required: No Beliefs That Will Affect Care: None marital status: Life Partner Current Living Situation: Significant Other current occupational status: unemployed Other Information That Helps Us Care for You: No Feels Safe at Home: Yes Smoking Status: Current every day smoker Tobacco Type: cigarettes Cigarettes Per Day: 10 Do You Dip or Chew Tobacco: No Second Hand Exposure: No Tobacco Cessation Education Requested by Patient: No Hx Alcohol Use: No Hx Substance Use: No Review of Systems Constitutional: no fever, no body aches and no weight loss Respiratory: no cough, no dyspnea and no wheezing Cardiovascular: no chest pain, no radiating jaw, neck or arm pain and no claudication Gastrointestinal: no abdominal pain, no early satiety, no nausea, no vomiting, no coffee ground emesis, no hematemesis, no blood in stools and no melena Physical Exam Constitutional: WD/WN, vitals as above Neck: trachea midline Respiratory: normal respiratory effort, lungs clear to auscultation Cardiovascular: Rate/Rhythm: regular rate and regular rhythm Extremities: no edema Gastrointestinal (Abdomen): Percussion/Palpation: abdomen soft; abdomen nontender, no guarding, abdomen not rigid, no abdominal mass and no ascites Skin: no rashes, warm and dry + jaundice Results & Data Vital Signs (Past 12 Hours) Vital Signs Temp Pulse Pulse Resp BP Pulse Ox 08/28/18 07:27 36.8 C 54 L 18 96/60 L 93 08/28/18 07:15 60 08/28/18 03:44 36.9 C 59 L 16 91/49 L 94 08/28/18 01:10 65 08/28/18 00:10 36.9 C 65 18 100/64 93 08/27/18 23:19 37 C 57 L 18 101/66 96 08/27/18 22:39 37.0 C 56 L 16 104/68 98 Laboratory Results 08/28/18 08/28/18 08/28/18 Range/Units 07:29 07:29 07:29 WBC (4.8-10.8) K/uL RBC (4.7-6.1) M/uL Hgb (14.0-18.0) g/dL Hct (42-52) % MCV (80-100) fL MCH (25-34) pg MCHC (32-36) g/dL RDW Std Deviation (36.4-46.3) fL RDW Coeff of Mitchell (11.5-14.5) % Plt Count (130-400) K/uL MPV (7.4-10.4) fL Immature Gran % (Auto) % Neut % (Auto) % Lymph % (Auto) % Edwards % (Auto) % Eos % (Auto) % Baso % (Auto) % Immature Gran # (Auto) (0.00-0.02) K/uL Neut # (Auto) (1.4-6.5) K/uL Lymph # (Auto) (1.2-3.4) K/uL [place] # (Auto) (0.11-0.59) K/uL Eos # (Auto) (0-0.5) K/uL Baso # (Auto) (0-0.2) K/uL PT 16.4 H (9.0-12.0) Seconds INR 1.7 H (0.9-1.1) Sodium 130 L (136-145) mmol/L Potassium 4.3 (3.5-5.1) mmol/L Chloride 97 L (98-107) mmol/L Carbon Dioxide 26 (21-32) mmol/L Anion Gap 7.0 (3-11) BUN 20 H (7-18) mg/dl Creatinine 1.23 (0.6-1.4) mg/dl Est Cr Clr Drug Dosing 49.2 ml/min Est GFR ( Amer) 73.0 Est GFR (Non-Af Amer) 63.0 BUN/Creatinine Ratio 15.9 (10-20) Glucose 71 (70-99) mg/dl Calcium 9.2 (8.5-10.1) mg/dl Total Bilirubin 2.3 H (0.2-1) mg/dl AST 22 (15-37) U/L ALT 17 (12-78) U/L Alkaline Phosphatase 82 (45-117) U/L Ammonia (11-32) umol/L Troponin I < 0.015 (0-0.045) ng/ml Total Protein 7.7 (6.4-8.2) gm/dl Albumin 3.4 (3.4-5.0) gm/dl Globulin 4.3 H (2.5-4.0) gm/dl Albumin/Globulin Ratio 0.8 L (0.9-2) Lipase (73-393) U/L Urine Color Urine Appearance (Clear) Urine pH (4.5-7.5) Ur Specific [place] (1.000-1.030) Urine Protein (Negative) Urine Glucose (UA) (Negative) Urine Ketones (Negative) Urine Blood (Negative) Urine Nitrite (Negative) Urine Bilirubin (Negative) Urine Urobilinogen (Negative) Ur Leukocyte Esterase (Negative) Urine WBC (Auto) (0-5) /hpf Urine RBC (Auto) (0-4) /hpf U Hyaline Cast (Auto) (0-5) /lpf U Epithel Cells (Auto) (0-5) /lpf Urine Bacteria (Auto) (Negative) Urine Sodium mmol/L Urine Potassium mmol/L Urine Chloride mmol/L Peritoneal Color Peritoneal Appearance Peritoneal WBC (0-300) /ul Peritoneal RBC /uL Mononuclear WBCs % % Polynuclear WBCs % % Peritoneal Tot Protein g/dl Peritoneal Albumin g/dl Peritoneal LDH U/L Peritoneal Glucose mg/dl 08/28/18 08/28/18 08/28/18 Range/Units 07:29 02:30 00:22 WBC 6.50 (4.8-10.8) K/uL RBC 2.79 L (4.7-6.1) M/uL Hgb 9.5 L D (14.0-18.0) g/dL Hct 27.3 L (42-52) % MCV 97.8 (80-100) fL MCH 34.1 H (25-34) pg MCHC 34.8 (32-36) g/dL RDW Std Deviation 49.8 H (36.4-46.3) fL RDW Coeff of [place] 14.1 (11.5-14.5) % Plt Count 123 L (130-400) K/uL MPV 9.1 (7.4-10.4) fL Immature Gran % (Auto) % Neut % (Auto) % Lymph % (Auto) % Edwards % (Auto) % Eos % (Auto) % Baso % (Auto) % Immature Gran # (Auto) (0.00-0.02) K/uL Neut # (Auto) (1.4-6.5) K/uL Lymph # (Auto) (1.2-3.4) K/uL [place] # (Auto) (0.11-0.59) K/uL Eos # (Auto) (0-0.5) K/uL Baso # (Auto) (0-0.2) K/uL PT (9.0-12.0) Seconds INR (0.9-1.1) Sodium 129 L (136-145) mmol/L Potassium 4.5 (3.5-5.1) mmol/L Chloride 96 L (98-107) mmol/L Carbon Dioxide 26 (21-32) mmol/L Anion Gap 7.0 (3-11) BUN 20 H (7-18) mg/dl Creatinine 1.20 (0.6-1.4) mg/dl Est Cr Clr Drug Dosing 52.0 ml/min Est GFR ( Amer) 75.2 Est GFR (Non-Af Amer) 64.9 BUN/Creatinine Ratio 16.5 (10-20) Glucose 110 H (70-99) mg/dl Calcium 9.0 (8.5-10.1) mg/dl Total Bilirubin (0.2-1) mg/dl AST (15-37) U/L ALT (12-78) U/L Alkaline Phosphatase (45-117) U/L Ammonia (11-32) umol/L Troponin I (0-0.045) ng/ml Total Protein (6.4-8.2) gm/dl Albumin (3.4-5.0) gm/dl Globulin (2.5-4.0) gm/dl Albumin/Globulin Ratio (0.9-2) Lipase (73-393) U/L Urine Color Urine Appearance (Clear) Urine pH (4.5-7.5) Ur Specific [place] (1.000-1.030) Urine Protein (Negative) Urine Glucose (UA) (Negative) Urine Ketones (Negative) Urine Blood (Negative) Urine Nitrite (Negative) Urine Bilirubin (Negative) Urine Urobilinogen (Negative) Ur Leukocyte Esterase (Negative) Urine WBC (Auto) (0-5) /hpf Urine RBC (Auto) (0-4) /hpf U Hyaline Cast (Auto) (0-5) /lpf U Epithel Cells (Auto) (0-5) /lpf Urine Bacteria (Auto) (Negative) Urine Sodium 31 mmol/L Urine Potassium 35.1 mmol/L Urine Chloride 15 mmol/L Peritoneal Color Peritoneal Appearance Peritoneal WBC (0-300) /ul Peritoneal RBC /uL Mononuclear WBCs % % Polynuclear WBCs % % Peritoneal Tot Protein g/dl Peritoneal Albumin g/dl Peritoneal LDH U/L Peritoneal Glucose mg/dl 08/27/18 08/27/18 08/27/18 Range/Units Unknown Unknown Unknown WBC (4.8-10.8) K/uL RBC (4.7-6.1) M/uL Hgb (14.0-18.0) g/dL Hct (42-52) % MCV (80-100) fL MCH (25-34) pg MCHC (32-36) g/dL RDW Std Deviation (36.4-46.3) fL RDW Coeff of [place] (11.5-14.5) % Plt Count (130-400) K/uL MPV (7.4-10.4) fL Immature Gran % (Auto) % Neut % (Auto) % Lymph % (Auto) % Edwards % (Auto) % Eos % (Auto) % Baso % (Auto) % Immature Gran # (Auto) (0.00-0.02) K/uL Neut # (Auto) (1.4-6.5) K/uL Lymph # (Auto) (1.2-3.4) K/uL Edwards # (Auto) (0.11-0.59) K/uL Eos # (Auto) (0-0.5) K/uL Baso # (Auto) (0-0.2) K/uL PT (9.0-12.0) Seconds INR (0.9-1.1) Sodium (136-145) mmol/L Potassium (3.5-5.1) mmol/L Chloride (98-107) mmol/L Carbon Dioxide (21-32) mmol/L Anion Gap (3-11) BUN (7-18) mg/dl Creatinine (0.6-1.4) mg/dl Est Cr Clr Drug Dosing ml/min Est GFR ( Amer) Est GFR (Non-Af Amer) BUN/Creatinine Ratio (10-20) Glucose (70-99) mg/dl Calcium (8.5-10.1) mg/dl Total Bilirubin (0.2-1) mg/dl AST (15-37) U/L ALT (12-78) U/L Alkaline Phosphatase (45-117) U/L Ammonia (11-32) umol/L Troponin I (0-0.045) ng/ml Total Protein (6.4-8.2) gm/dl Albumin (3.4-5.0) gm/dl Globulin (2.5-4.0) gm/dl Albumin/Globulin Ratio (0.9-2) Lipase (73-393) U/L Urine Color Urine Appearance (Clear) Urine pH (4.5-7.5) Ur Specific [place] (1.000-1.030) Urine Protein (Negative) Urine Glucose (UA) (Negative) Urine Ketones (Negative) Urine Blood (Negative) Urine Nitrite (Negative) Urine Bilirubin (Negative) Urine Urobilinogen (Negative) Ur Leukocyte Esterase (Negative) Urine WBC (Auto) (0-5) /hpf Urine RBC (Auto) (0-4) /hpf U Hyaline Cast (Auto) (0-5) /lpf U Epithel Cells (Auto) (0-5) /lpf Urine Bacteria (Auto) (Negative) Urine Sodium mmol/L Urine Potassium mmol/L Urine Chloride mmol/L Peritoneal Color Peritoneal Appearance Peritoneal WBC (0-300) /ul Peritoneal RBC /uL Mononuclear WBCs % % Polynuclear WBCs % % Peritoneal Tot Protein Cancelled g/dl Peritoneal Albumin g/dl Peritoneal LDH Cancelled U/L Peritoneal Glucose Cancelled mg/dl 08/27/18 08/27/18 08/27/18 Range/Units Unknown Unknown 22:50 WBC (4.8-10.8) K/uL RBC (4.7-6.1) M/uL Hgb (14.0-18.0) g/dL Hct (42-52) % MCV (80-100) fL MCH (25-34) pg MCHC (32-36) g/dL RDW Std Deviation (36.4-46.3) fL RDW Coeff of [place] (11.5-14.5) % Plt Count (130-400) K/uL MPV (7.4-10.4) fL Immature Gran % (Auto) % Neut % (Auto) % Lymph % (Auto) % Edwards % (Auto) % Eos % (Auto) % Baso % (Auto) % Immature Gran # (Auto) (0.00-0.02) K/uL Neut # (Auto) (1.4-6.5) K/uL Lymph # (Auto) (1.2-3.4) K/uL [place] # (Auto) (0.11-0.59) K/uL Eos # (Auto) (0-0.5) K/uL Baso # (Auto) (0-0.2) K/uL PT (9.0-12.0) Seconds INR (0.9-1.1) Sodium 128 L (136-145) mmol/L Potassium 4.6 (3.5-5.1) mmol/L Chloride 94 L (98-107) mmol/L Carbon Dioxide 27 (21-32) mmol/L Anion Gap 6.0 (3-11) BUN 19 H (7-18) mg/dl Creatinine 1.38 (0.6-1.4) mg/dl Est Cr Clr Drug Dosing 45.2 ml/min Est GFR ( Amer) 63.5 Est GFR (Non-Af Amer) 54.8 BUN/Creatinine Ratio 14.0 (10-20) Glucose 119 H (70-99) mg/dl Calcium 9.2 (8.5-10.1) mg/dl Total Bilirubin (0.2-1) mg/dl AST (15-37) U/L ALT (12-78) U/L Alkaline Phosphatase (45-117) U/L Ammonia (11-32) umol/L Troponin I (0-0.045) ng/ml Total Protein (6.4-8.2) gm/dl Albumin (3.4-5.0) gm/dl Globulin (2.5-4.0) gm/dl Albumin/Globulin Ratio (0.9-2) Lipase (73-393) U/L Urine Color Urine Appearance (Clear) Urine pH (4.5-7.5) Ur Specific [place] (1.000-1.030) Urine Protein (Negative) Urine Glucose (UA) (Negative) Urine Ketones (Negative) Urine Blood (Negative) Urine Nitrite (Negative) Urine Bilirubin (Negative) Urine Urobilinogen (Negative) Ur Leukocyte Esterase (Negative) Urine WBC (Auto) (0-5) /hpf Urine RBC (Auto) (0-4) /hpf U Hyaline Cast (Auto) (0-5) /lpf U Epithel Cells (Auto) (0-5) /lpf Urine Bacteria (Auto) (Negative) Urine Sodium mmol/L Urine Potassium mmol/L Urine Chloride mmol/L Peritoneal Color YELLOW Peritoneal Appearance CLEAR Peritoneal WBC 156 (0-300) /ul Peritoneal RBC < 3000 /uL Mononuclear WBCs % 89.6 % Polynuclear WBCs % 10.4 % Peritoneal Tot Protein 2.5 g/dl Peritoneal Albumin 0.9 g/dl Peritoneal LDH 88 U/L Peritoneal Glucose 98 mg/dl 08/27/18 08/27/18 08/27/18 Range/Units 20:55 17:50 16:19 WBC (4.8-10.8) K/uL RBC (4.7-6.1) M/uL Hgb (14.0-18.0) g/dL Hct (42-52) % MCV (80-100) fL MCH (25-34) pg MCHC (32-36) g/dL RDW Std Deviation (36.4-46.3) fL RDW Coeff of Mitchell (11.5-14.5) % Plt Count (130-400) K/uL MPV (7.4-10.4) fL Immature Gran % (Auto) % Neut % (Auto) % Lymph % (Auto) % Edwards % (Auto) % Eos % (Auto) % Baso % (Auto) % Immature Gran # (Auto) (0.00-0.02) K/uL Neut # (Auto) (1.4-6.5) K/uL Lymph # (Auto) (1.2-3.4) K/uL Edwards # (Auto) (0.11-0.59) K/uL Eos # (Auto) (0-0.5) K/uL Baso # (Auto) (0-0.2) K/uL PT (9.0-12.0) Seconds INR (0.9-1.1) Sodium 129 L (136-145) mmol/L Potassium 5.1 (3.5-5.1) mmol/L Chloride 96 L (98-107) mmol/L Carbon Dioxide 27 (21-32) mmol/L Anion Gap 6.0 (3-11) BUN 19 H (7-18) mg/dl Creatinine 1.25 (0.6-1.4) mg/dl Est Cr Clr Drug Dosing 49.5 ml/min Est GFR ( Amer) 71.6 Est GFR (Non-Af Amer) 61.8 BUN/Creatinine Ratio 15.2 (10-20) Glucose 95 (70-99) mg/dl Calcium 9.1 (8.5-10.1) mg/dl Total Bilirubin (0.2-1) mg/dl AST (15-37) U/L ALT (12-78) U/L Alkaline Phosphatase (45-117) U/L Ammonia 41.1 H (11-32) umol/L Troponin I (0-0.045) ng/ml Total Protein (6.4-8.2) gm/dl Albumin (3.4-5.0) gm/dl Globulin (2.5-4.0) gm/dl Albumin/Globulin Ratio (0.9-2) Lipase (73-393) U/L Urine Color [place] Urine Appearance Clear (Clear) Urine pH 6.5 (4.5-7.5) Ur Specific [place] 1.013 (1.000-1.030) Urine Protein Negative (Negative) Urine Glucose (UA) Negative (Negative) Urine Ketones Negative (Negative) Urine Blood 2+ H (Negative) Urine Nitrite Negative (Negative) Urine Bilirubin Negative (Negative) Urine Urobilinogen Negative (Negative) Ur Leukocyte Esterase Negative (Negative) Urine WBC (Auto) 1-5 (0-5) /hpf Urine RBC (Auto) 10-30 H (0-4) /hpf U Hyaline Cast (Auto) 1-5 (0-5) /lpf U Epithel Cells (Auto) 5-10 H (0-5) /lpf Urine Bacteria (Auto) Negative (Negative) Urine Sodium mmol/L Urine Potassium mmol/L Urine Chloride mmol/L Peritoneal Color Peritoneal Appearance Peritoneal WBC (0-300) /ul Peritoneal RBC /uL Mononuclear WBCs % % Polynuclear WBCs % % Peritoneal Tot Protein g/dl Peritoneal Albumin g/dl Peritoneal LDH U/L Peritoneal Glucose mg/dl 08/27/18 08/27/18 08/27/18 Range/Units 16:19 16:19 16:19 WBC 7.67 (4.8-10.8) K/uL RBC 3.80 L (4.7-6.1) M/uL Hgb 13.4 L (14.0-18.0) g/dL Hct 36.8 L (42-52) % MCV 96.8 (80-100) fL MCH 35.3 H (25-34) pg MCHC 36.4 H (32-36) g/dL RDW Std Deviation 49.8 H (36.4-46.3) fL RDW Coeff of [place] 14.1 (11.5-14.5) % Plt Count 157 (130-400) K/uL MPV 9.1 (7.4-10.4) fL Immature Gran % (Auto) 0.4 % Neut % (Auto) 81.9 % Lymph % (Auto) 11.1 % Edwards % (Auto) 5.6 % Eos % (Auto) 0.5 % Baso % (Auto) 0.5 % Immature Gran # (Auto) 0.03 H (0.00-0.02) K/uL Neut # (Auto) 6.28 (1.4-6.5) K/uL Lymph # (Auto) 0.85 L (1.2-3.4) K/uL Edwards # (Auto) 0.43 (0.11-0.59) K/uL Eos # (Auto) 0.04 (0-0.5) K/uL Baso # (Auto) 0.04 (0-0.2) K/uL PT 14.8 H (9.0-12.0) Seconds INR 1.5 H (0.9-1.1) Sodium 124 L (136-145) mmol/L Potassium 5.0 (3.5-5.1) mmol/L Chloride 91 L (98-107) mmol/L Carbon Dioxide 26 (21-32) mmol/L Anion Gap 8.0 (3-11) BUN 18 (7-18) mg/dl Creatinine 1.44 H (0.6-1.4) mg/dl Est Cr Clr Drug Dosing 43.0 ml/min Est GFR ( Amer) 60.3 Est GFR (Non-Af Amer) 52.0 BUN/Creatinine Ratio 12.8 (10-20) Glucose 98 (70-99) mg/dl Calcium 9.6 (8.5-10.1) mg/dl Total Bilirubin 4.0 H (0.2-1) mg/dl AST 39 H (15-37) U/L ALT 22 (12-78) U/L Alkaline Phosphatase 132 H (45-117) U/L Ammonia (11-32) umol/L Troponin I (0-0.045) ng/ml Total Protein 9.5 H (6.4-8.2) gm/dl Albumin 2.9 L (3.4-5.0) gm/dl Globulin 6.6 H (2.5-4.0) gm/dl Albumin/Globulin Ratio 0.4 L (0.9-2) Lipase 444 H (73-393) U/L Urine Color Urine Appearance (Clear) Urine pH (4.5-7.5) Ur Specific [place] (1.000-1.030) Urine Protein (Negative) Urine Glucose (UA) (Negative) Urine Ketones (Negative) Urine Blood (Negative) Urine Nitrite (Negative) Urine Bilirubin (Negative) Urine Urobilinogen (Negative) Ur Leukocyte Esterase (Negative) Urine WBC (Auto) (0-5) /hpf Urine RBC (Auto) (0-4) /hpf U Hyaline Cast (Auto) (0-5) /lpf U Epithel Cells (Auto) (0-5) /lpf Urine Bacteria (Auto) (Negative) Urine Sodium mmol/L Urine Potassium mmol/L Urine Chloride mmol/L Peritoneal Color Peritoneal Appearance Peritoneal WBC (0-300) /ul Peritoneal RBC /uL Mononuclear WBCs % % Polynuclear WBCs % % Peritoneal Tot Protein g/dl Peritoneal Albumin g/dl Peritoneal LDH U/L Peritoneal Glucose mg/dl
--- NOTE | 2018-08-28 11:52 | Hospitalist Progress Note ---
Date of Service August 28, 2018 Assessment & Plan (1) Decompensated hepatic cirrhosis: Worsening abdominal pain and ascites. SBP was of concern initially with albumin given at 1.5 g/kg. Ceftriaxone 2 g were given. Paracentesis was not consistent with infection, however, antibiotics will be continued for 7-day course per GI recommendations. Continue low-sodium diet. Patient feels much improved today. Restart diuretics with Lasix 40 and spinal lactone 100 daily per home regimen. Titrate lactulose to bowel movements 2-3 times daily. Will order hepatic duplex to rule out PVT as noncontrast imaging was performed and unable to do this. (2) ENRIKE (acute kidney injury): Resolved after colloid administration overnight. (3) Hyponatremia: Improved to 130 from 124 yesterday after colloid administration. Continue low-sodium diet and encourage p.o. intake now that feeling better. (4) Liver lesion: Outpatient MRI is ordered by transplant medicine, and will be completed upon discharge. (5) Severe protein-calorie malnutrition: Nutrition consult. Poss 2/2 malignancy and chronic disease. (6) DVT prophylaxis: -SQ heparin Full code Dispo-continue hospitalization for 1 more day. Michelle Mckinley DO [facility] Hospitalist Subjective Patient states that nausea, dry heaving, chills and all abdominal pain has resolved overnight. He underwent an acute paracentesis out of concern for SBP that revealed no evidence of infection. He had received 7 vials of albumin which helped him diuresis overnight. He also had 1 L taken off in the paracentesis. He is tolerating p.o. this morning and doing well. Review of Systems Review of Systems: All systems reviewed & are unremarkable except as noted in HPI & below Physical Exam Physical Exam: CONSTITUTIONAL: thin, vitals as above, generally well- appearing EYES: normal conjunctivae, +scleral icterus ENT: MMM RESPIRATORY: clear to auscultation bilaterally, no crackles, rales or wheezes, normal respiratory effort CARDIOVASCULAR: regular rate and rhythm, S1 and 2 heard without murmurs, gallops or rubs, no JVD, no peripheral edema, no carotid bruits GASTROINTESTINAL: normal bowel sounds, soft, nontender, nondistended MUSCULOSKELETAL: strength 5/5 throughout, head is normocephalic and atraumatic SKIN: warm and dry, jaundiced NEUROLOGIC: CN 2-12 grossly intact, no sensory deficit, normal cognition, normal speech, no tremor, no asterixis yesterday PSYCHIATRIC: alert cooperative and oriented to person, place and time. Euthymic mood Results & Data Vital Signs (Past 12 Hours) Vital Signs Temp Pulse Pulse Resp BP Pulse Ox 08/28/18 11:28 36.8 C 58 L 18 91/57 L 94 08/28/18 07:27 36.8 C 54 L 18 96/60 L 93 08/28/18 07:15 60 08/28/18 03:44 36.9 C 59 L 16 91/49 L 94 08/28/18 01:10 65 08/28/18 00:10 36.9 C 65 18 100/64 93 Laboratory Results Short CBC 08/27/18 08/28/18 Range/Units 16:19 07:29 WBC 7.67 6.50 (4.8-10.8) K/uL Hgb 13.4 L 9.5 L D (14.0-18.0) g/dL Hct 36.8 L 27.3 L (42-52) % Plt Count 157 123 L (130-400) K/uL BMP 08/27/18 08/27/18 08/27/18 16:19 20:55 22:50 Sodium 124 L 129 L 128 L Potassium 5.0 5.1 4.6 Chloride 91 L 96 L 94 L Carbon Dioxide 26 27 27 BUN 18 19 H 19 H Creatinine 1.44 H 1.25 1.38 Glucose 98 95 119 H Calcium 9.6 9.1 9.2 08/28/18 08/28/18 00:22 07:29 Sodium 129 L 130 L Potassium 4.5 4.3 Chloride 96 L 97 L Carbon Dioxide 26 26 BUN 20 H 20 H Creatinine 1.20 1.23 Glucose 110 H 71 Calcium 9.0 9.2 Cardiac Enzymes 08/28/18 Range/Units 07:29 Troponin I < 0.015 (0-0.045) ng/ml Liver Function 08/27/18 08/28/18 Range/Units 16:19 07:29 Total Bilirubin 4.0 H 2.3 H (0.2-1) mg/dl AST 39 H 22 (15-37) U/L ALT 22 17 (12-78) U/L Alkaline Phosphatase 132 H 82 (45-117) U/L Albumin 2.9 L 3.4 (3.4-5.0) gm/dl Urine 08/27/18 Range/Units 17:50 Urine Color Divide Urine Appearance Clear (Clear) Urine pH 6.5 (4.5-7.5) Ur Specific [facility] 1.013 (1.000-1.030) Urine Protein Negative (Negative) Urine Glucose (UA) Negative (Negative) Medications Administered Current Inpatient Medications Heparin Sodium (Porcine) (Heparin Sodium (Porcine)) 5,000 units SQ Q12 [facility] Stop: 09/27/18 08:59 Last Admin: 08/28/18 07:59 Dose: 5,000 units Documented by: Ceftriaxone Sodium 2,000 mg/ (Dextrose) 70 mls @ 100 mls/hr IV DAILY@1900 [facility]; Protocol Stop: 09/06/18 18:59 Miscellaneous (Remove Nicoderm Patch) 1 ea N/A HS [facility] Stop: 09/27/18 20:59 Multivitamins (Multivitamin Tab) 1 tab PO QAM [facility] Stop: 09/27/18 08:59 Last Admin: 08/28/18 07:59 Dose: 1 tab Documented by: Nicotine (Nicoderm Cq) 14 mg TD QAM [facility] Stop: 09/27/18 08:59 Last Admin: 08/28/18 07:59 Dose: 14 mg Documented by: Rifaximin (Xifaxan) 550 mg PO BID [facility] Stop: 09/26/18 20:59 Last Admin: 08/28/18 08:00 Dose: 550 mg Documented by:
--- NOTE | 2018-08-28 13:28 | Ultrasound Report ---
US duplex portal hepatic veins CLINICAL HISTORY: 63 years-old Male presenting with cirrhosis and ascites, r/o PVT. TECHNIQUE: Real-time grayscale and color and spectral Doppler ultrasound imaging of the liver was per formed. COMPARISON: None. FINDINGS: Liver: Nodular contour with hyperechogenic parenchyma and heterogeneous echotexture, consistent with cirrhosis. Vasculature: Portal veins: Main portal vein with normal antegrade flow and gentle undulating waveforms. Peak veloc ity 10 cm/s, which is slightly diminished. Right and left portal veins with normal directional flow. Hepatic arteries: Proper hepatic artery with normal parenchymal arterial waveforms. Peak systolic estefania ocity 116 cm/s, which is elevated. Hepatic veins: Right, middle, and left hepatic veins patent. Insonation of a more central portion of the hepatic veins likely accounts for the absence of expected triphasic waveforms. Splenic vein: Obscured due to overlying bowel gas. IVC: Patent. Biliary: No intrahepatic biliary ductal dilatation. Gallbladder: Decompressed. Circumferential wall thickening is likely due to underdistention and/or se condary to cirrhosis. Ascites: Moderate to large volume of simple appearing ascites. Other: None. IMPRESSION: 1. Elevated hepatic arterial velocity and slightly diminished portal venous flow consistent with cir rhosis. 2. Patent vasculature. 3. Ascites. Electronically signed by: Miguel Barnes M.D. 08/28/2018 1:27 PM
[2018-08-28] MEDS: FUROSEMIDE 40 MG TAB PO SCH (13:41)
[2018-08-28] MEDS: SPIRONOLACTONE 100 MG TAB PO SCH (13:41)
[2018-08-28] MEDS: LACTULOSE SYRUP 10 GM/15 ML BTL 473 ML PO SCH (18:17)
[2018-08-28] MEDS ORDERED: cefTRIAXone SODIUM 2,000 MG in DEXTROSE 5% 50 ML IV SCH (19:00)
[2018-08-28] MEDS ORDERED: LACTULOSE SYRUP 10 GM/15 ML BTL 473 ML PO PRN (21:00)
[2018-08-29] MEDS: HEPARIN SOD 5,000 UNIT/0.5 ML VIAL SQ SCH (09:07)
[2018-08-29] MEDS: RIFAXIMIN 550 MG TABLET PO SCH (09:08)
[2018-08-29] MEDS: MULTIVITAMIN TAB PO SCH (09:09)
[2018-08-29] MEDS: FUROSEMIDE 40 MG TAB PO SCH (09:09)
[2018-08-29] MEDS: SPIRONOLACTONE 100 MG TAB PO SCH (09:09)
[2018-08-29] MEDS: NICOTINE 14 MG/24 HR PATCH TD SCH (09:10)
[2018-08-29] MEDS: LACTULOSE SYRUP 10 GM/15 ML BTL 473 ML PO SCH ×2 (09:10→17:52)
[2018-08-29 09:26] LABS: Hematocrit (blood only) 31.6 % (42-52); Mean Corpuscular Hgb Conc 34.8 g/dL (32-36); Mean Corpuscular Volume 98.1 fL (80-100); Mean Platelet Volume 9.4 fL (7.4-10.4); Platelet Count 124 K/uL (130-400); RDW Coefficient of Variation 14.2 % (11.5-14.5); RDW Standard Deviation 50.7 fL (36.4-46.3); Red Blood Count 3.22 M/uL (4.7-6.1); White Blood Count 6.71 K/uL (4.8-10.8)
[2018-08-29 09:51] LABS: BUN Creatinine Ratio 16.7 (10-20); Calcium 8.8 mg/dl (8.5-10.1); Creatinine Clr Calc Pharmacy 53.9 ml/min; Est GFR (African American) 82.6; Est GFR (Non-African American) 71.3; Potassium 4.4 mmol/L (3.5-5.1)
--- NOTE | 2018-08-29 11:36 | Discharge Summary ---
Date of Service August 29, 2018 Admission HPI Per Admitting Provider 63-year-old male who presents the ED with abdominal pain, lethargy, nausea, vomiting. Patient with history of HCV and alcoholic cirrhosis. Most recently admitted to [facility] 07/29 through 07/31 for decompensated cirrhosis. During that admission, patient underwent a 3 L paracentesis and was started on lactulose and Lasix was increased. Patient has been following with the [facility] transplant team. Over the past 1 week, patient has noted increasing generalized weakness, lethargy, disorientation. Over the past 3 days, he notes increasing abdominal pain. Last evening he developed vomiting and has had several episodes with also dry heaves. He denies hematemesis or coffee-ground emesis. Previously, patient reports he was having 2-3 loose bowel movements per day however more recently he has been having 2 formed bowel movements. He has felt chills however did not take his temperature. No rigors. He denies chest pain or shortness of breath. He has felt lightheaded and dizzy however denies any syncopal events. He denies any urinary symptoms. In the ED, labs show Na+ 124, creatinine 1.4, total bili 4.0, AST 39, ALT 22, alk phos 132, ammonia 41.1. CT ABD/pelvis shows large volume ascites and a concerning lesion on the liver for hepatocellular carcinoma. Patient was given IVF, IV Zofran, IV morphine, lactulose 30 g p.o., ceftriaxone 1 g IV. Admission Exam Per Admitting Provider WD/WN, vitals as above Eyes: PERRL, conjunctivae normal, anicteric sclerae ENMT: external ear and nose normal, oropharynx normal Respiratory: normal respiratory effort; no respiratory distress Auscultation: + diminished lung sounds Cardiovascular: Rate/Rhythm: regular rate and regular rhythm Vessels: normal peripheral pulses Extremities: no edema Gastrointestinal (Abdomen): Inspection/Auscultation: + abdomen distended and normal bowel sounds Percussion/Palpation: + abdomen tender (LLQ, LUQ) and + abdomen firm Musculoskeletal: no cyanosis or clubbing, extremities motor strength 5/5 Skin: no rashes, warm and dry + jaundice Neurologic: PERRL, EOMI, accommodation nl, no face palsy, no dysarthria Psychiatric: A+Ox3, euthymic affect Principal Diagnosis Decompensated cirrhosis with ascites-resolved Possible spontaneous bacterial peritonitis ENRIKE-resolved Liver lesion Discharge Data Allergies Allergy/AdvReac Type Severity Reaction Status Date / Time iodine Allergy Unknown Unknown Verified 08/27/18 16:45 shellfish derived Allergy Unknown Hives and Verified 08/27/18 16:45 respiratory problems Consultations 08/27/18 18:39 ED Decision to Admit Stat 08/27/18 20:46 Consult Gastroenterology Routine Ordered Studies 08/27/18 16:14 CT abd pelvis wo con Stat 08/27/18 20:40 US paracentesis abd w/image Stat 08/28/18 11:55 US duplex portal hepatic veins Routine 08/29/18 10:44 MR abdomen wo/w con Routine Hospital Course (1) Decompensated hepatic cirrhosis: Worsening abdominal pain and ascites. SBP was of concern initially with albumin given at 1.5 g/kg. Ceftriaxone 2 g was given just prior to paracentesis performed a couple of hours after admission. Paracentesis was not consistent with infection, however, antibiotics were recommended for 7-day course per GI re commendations. Continue low-sodium diet. Patient felt improved after significant diuresis with albumin and 1L ascitic fluid removal during paracentesis. Home diuretics with Lasix 40 and spironolactone 100 daily were started and he continued to feel well and no ENRIKE resulted on daily lab work. Titrate lactulose to bowel movements 2-3 times daily. Hepatic duplex was performed revealing patent vasculature. Abdominal MRI and Chest CT was performed per Transplant orders as outpatient to expedite getting them taken. (2) ENRIKE (acute kidney injury): Resolved after colloid administration overnight. (3) Hyponatremia: Improved to 130 from 124 after colloid administration. Continue low- sodium diet and encourage p.o. intake now that feeling better. (4) Liver lesion: Abdominal MRI (5) Severe protein-calorie malnutrition: 2/2 malignancy and chronic disease. At time of discharge a face to face exam was performed revealing a hemodynamically stable and afebrile patient in no acute distress. He reports feeling in good spirits and better than on admission. He is mentating and ambulating at baseline and tolerating PO. There is no abdominal TTP on exam and no obvious fluid wave is present. Abdomen is otherwise soft and nondistended. Lungs are clear to auscultation bilaterally. The patient is jaundiced. He was sent home in stable but guarded condition in the setting of a new liver lesion most consistent with hepatocellular carcinoma. Total Time Total Time Spent Total Time Spent (In Minutes): 60 Total Time Includes: Examination of the Patient, Discharge Planning, Medication Reconciliation and Communication With Other Providers Discharge Plan Discharge Items Patient Disposition: Home - Self-Care Reason For Visit: HEPATIC ENCEPHALOPATHY Discharge Diagnosis: Decompensated cirrhosis with ascites-resolved Possible spontaneous bacterial peritonitis ENRIKE-resolved Liver lesion Condition: Good Discharge Goals: Improve disease control Activity: Resume your previous activity Non-emergency contact: Primary Care Provider Call non-emergency contact if: you have any medication questions, your symptoms worsen, your pain is not controlled and you have a fever Follow-up/Referrals: Sirena Sadler DO [Primary Care Provider] - Diet: Low Sodium (2gm) Addtl Provider Instructions: Please take all medications as instructed on discharge list below. You are being given an antibiotic called CIPROFLOXACIN for another 5 days to complete a course. Although abdominal fluid studies did not reveal evidence of infection, you had already received antibiotics, possibly skewing the results. It is recommended that you followup with your primary care provider within one week of discharge: 09/05/2018 11:00 AM Dejon Valera MD [facility], [facility], [place] Please follow-up with your Cnc Programmer and Transplant Specialist as instructed. It was a pleasure taking care of you! Please call if you have any questions or problems. You can reach a [facility] hospitalist on duty at [facility] 24 hours a day by calling [phone]. Take care of yourself. Michelle Mckinley DO [facility] Hospitalist Prescriptions: New ciprofloxacin HCl [Cipro] 500 mg tablet 500 mg PO Q12H Qty: 10 RF: 0 Continued multivitamin Tablet 1 tab PO QAM RF: 0 spironolactone 100 mg tablet 100 mg PO QAM RF: 0 lactulose [Constulose] 10 gram/15 mL solution 10 g PO UD RF: 0 furosemide [Lasix] 40 mg tablet 40 mg PO DAILY Qty: 30 RF: 2 Stand-Alone Forms: [facility] Discharge Orders: Discharge Order (Routine); Ordered 08/29/18 Ordered By: Michelle Mckinley Admission Data Admit Date/Time: 08/27/18 19:10 Attending Provider: Michelle Mckinley Admit Provider: Michelle Mckinley Primary Care Provider: Sirena Sadler Other Providers: Izabela Reeves ; Kim Bliss ; James Causey Service: Telemetry Medical Other Interventions: Discharge Summary Assessment (RN) Last Done: 08/29/18 16:54 DC Date/Time DO NOT enter until pt leaves facility: 08/29/18 20:19
[2018-08-29 16:11] LABS: Albumin Level 3.2 gm/dl (3.4-5.0); BUN Creatinine Ratio 18.8 (10-20); Bilirubin Direct 0.9 mg/dl (0-0.2); Calcium 9.2 mg/dl (8.5-10.1); Creatinine Clr Calc Pharmacy 58.6 ml/min; Est GFR (African American) 91.5; Potassium 4.8 mmol/L (3.5-5.1)
--- NOTE | 2018-08-29 16:11 | CT Scan Report ---
CT SCAN OF THE CHEST WITHOUT IV CONTRAST CLINICAL HISTORY: Transplant assessment. Hepatitis C with cirrhosis. COMPARISON STUDY: Chest x-ray dated 07/29/2018. TECHNIQUE: CT scan of the thorax was performed from the thoracic inlet to the upper abdomen. Images are reviewed in the axial, sagittal, and coronal planes. IV contrast was not administered for this ex amination as per the referring clinician. A dose lowering technique was utilized adhering to the [facility]. CT DOSE: 207.39 mGy.cm FINDINGS: Thyroid: Imaged portions of the thyroid gland are normal in size and attenuation. Thoracic aorta: The thoracic aorta is normal in caliber and demonstrates standard 3-vessel arch anato my. Heart: The heart is normal in size and without pericardial effusion. Lungs and pleural spaces: Moderate emphysematous change is identified. No airspace consolidation or p leural effusion is seen. There is bibasilar scarring/atelectasis. The trachea and central airways are clear. Mediastinum: There is no mediastinal lymphadenopathy. Vandana: Not well assessed but IV contrast. Axillae: There is no axillary lymphadenopathy. Upper abdomen: The liver is cirrhotic in morphology and heterogeneous in attenuation. Upper abdominal ascites is noted. A punctate nonobstructing calculus is partially imaged in the right kidney. There is a small hiatal hernia. Gynecomastia is noted. Skeletal structures: The skeletal structures are osteopenic. Mild compression deformities are noted i n the thoracic spine. No lytic or blastic bony lesions are seen. IMPRESSION: 1. Emphysema. 2. There is no airspace consolidation or pleural effusion. 3. Cirrhotic liver morphology and upper abdominal ascites. 4. Nonobstructing right renal calculus. 5. Additional findings as above. Electronically signed by: Ralf Sorto M.D. 08/29/2018 4:09 PM
[2018-08-29 16:14] LABS: Albumin Globulin Ratio 0.6 (0.9-2); Bilirubin,Total 1.9 mg/dl (0.2-1); Globulin 5.4 gm/dl (2.5-4.0); Total Protein 8.6 gm/dl (6.4-8.2)
[2018-08-29] MEDS ORDERED: GADOXETATE DISODIUM IV PRN (16:28)
--- NOTE | 2018-08-29 17:27 | Magnetic Resonance Report ---
MR abdomen wo/w con CLINICAL HISTORY: Cirrhosis. Hepatic mass. Transplant candidate. TECHNIQUE: Imaging was performed prior to and following IV contrast injection. The patient received 1 0 cc of intravenous Eovist. COMPARISON STUDY: Noncontrast CT scan dated 08/27/2018 FINDINGS: There are no suspicious areas of marrow replacement. There is moderate ascites. The liver has a cirrhotic morphology. No pancreatic masses are visualized. No adrenal masses are visualized. There is no ductal dilatation. The common bile duct measures 5 mm. The spleen measures 11 cm. There is a 3.5 cm central hepatic mass (segment 4A) which is hypervascular and demonstrates rapid was hout. This mass demonstrates restricted water diffusion. The findings are highly suspicious for hepat ocellular carcinoma. There is an equivocal second 11 mm hypervascular lesion involving segment 2 of t he liver. This lesion however is not visualized on T2-weighted images, delayed images, or on diffusio n-weighted images. In addition there are a few hepatic cysts. There are bilateral renal cysts and hyperdense cysts. No enhancing solid renal masses are visualized. IMPRESSION: 1. 3.5 cm segment 4a hepatic mass. This lesion is hypervascular, demonstrates rapid washout, and demo nstrates restricted water diffusion. The findings are highly suspicious for hepatocellular carcinoma. 2. There is an equivocal second 11 mm hypervascular lesion involving segment 2 of the liver. This les ion however is not confirmed on delayed 20 minute images, and does not demonstrate restricted water d iffusion. 3. Hepatic cirrhosis 4. Moderate ascites Electronically signed by: Armen Malloy M.D. 08/29/2018 5:26 PM
== END 2018-08-29 20:19 | disposition home or self-care (01) | DRG 432 ==
LOC: ED 14:08 → SUATTDRO 19:10 → 2W 19:10
DX: Z91.013 Allergy to seafood; Z68.20 Body mass index [BMI] 20.0-20.9, adult; E43 Unspecified severe protein-calorie malnutrition; Z79.899 Other long term (current) drug therapy; K70.31 Alcoholic cirrhosis of liver with ascites; E87.1 Hypo-osmolality and hyponatremia; Z91.048 Other nonmedicinal substance allergy status; C22.0 Liver cell carcinoma; N17.9 Acute kidney failure, unspecified; B18.2 Chronic viral hepatitis C; F17.210 Nicotine dependence, cigarettes, uncomplicated

== ENCOUNTER 2018-09-25 14:13 | Observation (INO) ==
[2018-09-25] MEDS ORDERED: ONDANSETRON INJ 2 MG/ML 2 ML VIAL IV STA (14:35)
[2018-09-25] MEDS: HYDROmorphone INJ 0.5 MG/0.5 ML SYR IV PRN ×4 (14:50→23:56)
[2018-09-25 15:02] LABS: Basophils # (auto) 0.07 K/uL (0-0.2); Eosinophils # (auto) 0.08 K/uL (0-0.5); Eosinophils % (auto) 1.1 %; Hematocrit (blood only) 32.6 % (42-52); Hemoglobin 11.6 g/dL (14.0-18.0); Immature Granulocytes # (auto) 0.03 K/uL (0.00-0.02); Immature Granulocytes % (auto) 0.4 %; Lymphocytes # (auto) 0.55 K/uL (1.2-3.4); Lymphocytes % (auto) 7.7 %; Mean Corpuscular Hgb Conc 35.6 g/dL (32-36); Mean Corpuscular Volume 101.9 fL (80-100); Mean Platelet Volume 9.1 fL (7.4-10.4); Monocytes # (auto) 1.42 K/uL (0.11-0.59); Monocytes % (auto) 19.8 %; Neutrophils # (auto) 5.03 K/uL (1.4-6.5); Platelet Count 140 K/uL (130-400); RDW Coefficient of Variation 17.8 % (11.5-14.5); RDW Standard Deviation 65.2 fL (36.4-46.3); White Blood Count 7.18 K/uL (4.8-10.8)
[2018-09-25 15:11] LABS: INR 1.4 (0.9-1.1)
[2018-09-25 15:21] LABS: Albumin Level 2.7 gm/dl (3.4-5.0); BUN Creatinine Ratio 20.2 (10-20); Calcium 8.8 mg/dl (8.5-10.1); Creatinine Clr Calc Pharmacy 74.7 ml/min; Est GFR (African American) 110.6; Est GFR (Non-African American) 95.4
[2018-09-25 15:24] LABS: Albumin Globulin Ratio 0.5 (0.9-2); Bilirubin,Total 1.3 mg/dl (0.2-1); Globulin 5.5 gm/dl (2.5-4.0); Total Protein 8.2 gm/dl (6.4-8.2)
[2018-09-25] MEDS ORDERED: IOVERSOL 100ml IV PRN (15:44)
--- NOTE | 2018-09-25 15:57 | CT Scan Report ---
CT abd pelvis IV con only CLINICAL HISTORY: RUQ abd pain, h/o of Cirrhosis, hepatocellular carcinoma COMPARISON STUDY: MRI dated 08/29/2018 TECHNIQUE: The patient was scanned in a dynamic helical fashion during intravenous and ministration o f 94 cc of Optiray 320. A dose lowering technique was utilized adhering to the principles of ALARA. CT DOSE: 294.22 mGy.cm FINDINGS: Lower chest: There are lower lung zone atelectatic changes. Liver: The liver has a cirrhotic morphology. There is a 4.4 cm central hepatic mass, corresponding to the lesion described in the prior MRI study. This appears slightly larger. The findings are suspicio us for hepatocellular carcinoma. Gallbladder: Unremarkable. Spleen: Normal in size and attenuation. Pancreas: Unremarkable. Adrenal glands: Unremarkable. Kidneys: There are nonobstructing renal calculi. There is no hydronephrosis. Bowel: There are no transition zones to indicate bowel obstruction. There is no evidence of acute div erticulitis. There are no findings to indicate acute appendicitis. Peritoneum: There is moderate ascites. There is no free air. There is a fat-containing umbilical yi ia with mild infiltration of the fat. Vasculature: There are esophageal and gastric varices. Adenopathy: None. Pelvic viscera: The bladder, and pelvic viscera are unremarkable. Skeletal structures: No destructive osseous lesions are seen. IMPRESSION: 1. Hepatic cirrhosis with evidence of portal hypertension, moderate ascites, and varices 2. 4.4 cm central hepatic mass, corresponding to the lesion described in the prior MRI scan. The mass is suspicious for hepatocellular carcinoma 3. No evidence of bowel obstruction. No evidence of free air 4. Bilateral nephrolithiasis. No evidence of hydronephrosis. Electronically signed by: Armen Malloy M.D. 09/25/2018 3:56 PM
[2018-09-25 16:08] LABS: Appearance Urine Clear (Clear); Bacteria Urine Automated Negative (Negative); Bilirubin Urine Negative (Negative); Blood Urine 1+ (Negative); Color Urine Yellow; Epithelial Cell Urine Auto 0-5 /lpf (0-5); Glucose Urine UA Negative (Negative); Ketones Urine Negative (Negative); Leukocyte Esterase Urine Negative (Negative); Nitrite Urine Negative (Negative); Protein Urine Negative (Negative); Specific Gravity Urine 1.019 (1.000-1.030); Urobilinogen Urine Negative (Negative); pH Urine 5.5 (4.5-7.5)
[2018-09-25] MEDS ORDERED: SODIUM CHLORIDE 0.9% 1000ML 1,000 ML IV STA (17:17)
[2018-09-25] MEDS ORDERED: SODIUM CHLORIDE 0.9% 1000ML 500 ML IV ONE (17:17)
--- NOTE | 2018-09-25 18:13 | History & Physical Report ---
Date of Service September 25, 2018 Assessment & Plan (1) Abdominal pain: (2) Pancreatitis: Pt with PMH hepatitis C/alcoholic cirrhosis, recurrent ascites requiring paracentesis presented with complaint of abdominal pain x3 days. Patient reports chronic abdominal pain around umbilicus at site of umbilical hernia, however past 3 days with epigastric and RUQ abdominal pain. Denies back pain. +nausea, denies vomiting. Chronic loose stools as is on lactulose. No fever/chills. In ER pt afebrile, P: 78, R: 20, BP: 114/74, 91/60, 112/73, 99% on RA WBC: 7, H/H: 11.6/32 (baseline Hgb~11-12), INR: 1.4, Na: 131 (chronic), Total bili: 1.3, AST: 42, ALT: 26, Alk Phos: 119, ammonia: 58 (was 41 on 08/27/18), Lipase: 781 (was 444 on 08/27/18), UA unremarkable CT ABD/PELVIS: 1. Hepatic cirrhosis with evidence of portal hypertension, moderate ascites, and varices 2. 4.4 cm central hepatic mass, corresponding to the lesion described in the prior MRI scan. The mass is suspicious for hepatocellular carcinoma 3. No evidence of bowel obstruction. No evidence of free air 4. Bilateral nephrolithiasis. No evidence of hydronephrosis. Possible pancreatitis -Obtain US gallbladder, US abdomen for ascites -Clear liquids -Careful evaluation of fluid status with h/o ascites -GI consult -Follow CBC, CMP (3) Cirrhosis: Pt denies increased abdominal distension No fever/chills. No confusion, melena, hematochezia Last paracentesis of 1 L on 08/27/18 for suspected SBP, however was done after antibiotics started and was treated with cipro x [address] ABD/PELVIS: moderate ascites -Obtain US abd further evaluate amount of ascites , may need paracentesis -Continue lactulose -Lasix, spironolactone on hold for now, re-evaluate in am -GI consult (4) Liver lesion: Suspected hepatocellular carcinoma Today CT ABD/PELVIS: 4.4 cm central hepatic mass, corresponding to the lesion described in the prior MRI scan. The mass is suspicious for hepatocellular carcinoma MRI 08/2018: 3.5 cm segment 4a hepatic mass. This lesion is hypervascular, demonstrates rapid washout, and demonstrates restricted water diffusion. The findings are highly suspicious for hepatocellular carcinoma. 09/24/2018 had appointment with interventional radiology at [facility] Dr Malave, discussion for chemoembolization (5) Tobacco use disorder: -Smoking cessation encouraged -Nicotine patch DVT Prophylaxis -Heparin SQ Follows with Dr Sadler for routine care Pt was seen and care coordinated with Dr Villalta. See addendum History of Present Illness Chief Complaint: Abdominal pain Primary Care Provider: Sirena Sadler, Pt is 63 y/o M with PMH hepatitis C/alcoholic cirrhosis, recurrent ascites, liver mass, tobacco use presented to ER with complaint of abdominal pain x3 days. Patient reports chronic abdominal pain around umbilicus at site of umbilical hernia and reports no hernia surgery secondary to high risk procedure. Reports 3 days ago started with some epigastric discomfort which radiated to right upper quadrant. States decreased appetite yesterday and nausea. Reports dry heaves today and states abdominal pain has been consistent today. Reports does not eat today he takes lactulose and has 3-4 BMs daily. Reports 2 BMs so far today. Patient states has not noticed increased abdominal distention. Patient reports chronic dizziness with standing up quickly denies any increased dizziness. Last reported alcohol use 04/2018. Denies fever/chills, diaphoresis, confusion, hematemesis, melena, hematochezia, WARD, syncope, vision changes, neck pain, CP, SOB, orthopnea, palpitations, cough, sore throat, choking, otalgia, rhinorrhea, paresthesias, weakness, extremity weakness, extremity edema, rashes, urinary symptoms. History of hospitalization 08/27/2018-08/29/2018 for decompensated cirrhosis with abdominal pain and ascites and had ENRIKE. During that admission there was concern for SBP, paracentesis was performed after Rocephin was started, had 1 L fluid removed. He was discharged home on Cipro for 7-day course and his lactulose, Lasix 40 mg daily and spironolactone 100 mg daily was continued. History hospitalization 07/29/2018-07/31/2018 for ascites and had 3 L removed with paracentesis 09/24/2018 had appointment with interventional radiology at [facility] for liver mass which is suspected hepatocellular carcinoma, possible consideration for future chemoembolization Allergies Allergy/AdvReac Type Severity Reaction Status Date / Time iodine Allergy Unknown Unknown Verified 08/27/18 16:45 shellfish derived Allergy Unknown Hives and Verified 08/27/18 16:45 respiratory problems Home Medications Home Medications Medication Instructions Recorded Confirmed Type multivitamin 1 tab PO QAM 05/26/18 09/25/18 History spironolactone 100 mg PO QAM 07/10/18 09/25/18 History lactulose [Constulose] 10 g PO UD 08/27/18 09/25/18 History erythromycin 1 applic OPR QID 09/25/18 09/25/18 History furosemide [Lasix] 40 mg PO QAM 09/25/18 09/25/18 History Past Med/Surg History Medical History Ascites (Chronic) Cirrhosis (Chronic) 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) Alcohol use disorder (Chronic) Tobacco use disorder (Chronic) Hepatitis C (Chronic) Surgical History History of esophagogastroduodenoscopy (EGD) Family History Father Cancer Mother Diabetes Kidney disease Social History Preferred Language: Spanish Communication Ability: Effective Visual Impairment: No Limitations Hearing Ability: Normal Data Entry Specialist Required: No Beliefs That Will Affect Care: None marital status: Life Partner Current Living Situation: Significant Other current occupational status: unemployed Feels Safe at Home: Yes Smoking Status: Current every day smoker Tobacco Type: cigarettes ; Cigarettes Per Day: 10 ; Second Hand Exposure: No ; Hx Alcohol Use: Yes (No ETOH since 04/2018) Alcohol Intake Frequency Comment: h/o heavy use. No drink in 2 weeks Hx Substance Use: No Review of Systems Review of Systems: All systems reviewed & are unremarkable except as noted in HPI & below Physical Exam Physical Exam: General: chronic ill appearing, no acute distress, thin Head: normocephalic, atraumatic Eyes: PERRL, EOM's intact, conjunctiva non-injected, anicteric ENT: normal inspection external ears, nose, mucous membranes moist Neck: supple, trachea midline Lungs: clear, no respiratory distress, no wheezing/rhonchi/rales CV: RRR, no murmur, no pretibial edema Abd: normal BS, soft, +umbilical hernia, +tenderness to palpation umbilical hernia, epigastric and RUQ without rebound Ext: no cyanosis, no calf tenderness Neuro: A&O x 3, no focal deficits noted, normal affect Skin: warm, dry, Results & Data Vital Signs (Past 12 Hours) Vital Signs Temp Pulse Resp BP Pulse Ox 09/25/18 17:30 58 L 15 95 09/25/18 17:00 69 18 112/73 97 09/25/18 16:30 62 11 L 96 09/25/18 16:00 62 17 91/60 L 96 09/25/18 15:30 63 10 L 96 09/25/18 15:23 61 16 93/58 L 96 09/25/18 15:05 68 17 96 09/25/18 14:43 97 09/25/18 14:16 36.7 C 78 20 114/74 99 Laboratory Results Short CBC 09/25/18 Range/Units 14:43 WBC 7.18 (4.8-10.8) K/uL Hgb 11.6 L (14.0-18.0) g/dL Hct 32.6 L (42-52) % Plt Count 140 (130-400) K/uL BMP 09/25/18 14:43 Sodium 131 L Potassium 4.0 Chloride 100 Carbon Dioxide 24 BUN 16 Creatinine 0.82 Glucose 81 Calcium 8.8 Liver Function 09/25/18 Range/Units 14:43 Total Bilirubin 1.3 H (0.2-1) mg/dl AST 42 H (15-37) U/L ALT 26 (12-78) U/L Alkaline Phosphatase 119 H (45-117) U/L Albumin 2.7 L (3.4-5.0) gm/dl Urine 09/25/18 Range/Units Unknown Urine Color Yellow Urine Appearance Clear (Clear) Urine pH 5.5 (4.5-7.5) Ur Specific [place] 1.019 (1.000-1.030) Urine Protein Negative (Negative) Urine Glucose (UA) Negative (Negative) Diagnostic Findings CT ABD/PELVIS: IMPRESSION: 1. Hepatic cirrhosis with evidence of portal hypertension, moderate ascites, and varices 2. 4.4 cm central hepatic mass, corresponding to the lesion described in the prior MRI scan. The mass is suspicious for hepatocellular carcinoma 3. No evidence of bowel obstruction. No evidence of free air 4. Bilateral nephrolithiasis. No evidence of hydronephrosis. Supervising Physician Co-Signing Physician Notes Attending addendum: The patient was seen and examined in emergency room He has cirrhosis with hepatocellular carcinoma He came to the ER with increasing abdominal distention, pain and nausea Denies any fever and/or chills On examination Minimal distress at rest Hemodynamically stable with blood pressure lower side of normal at 96/62 Chest-clear to auscultate bilaterally Heart-S1-S2 tachycardic, Abdomen-distended, tender all over but mostly right upper quadrant, bowel sounds present, moderate ascites clinically, umbilical hernia seems to be nonobstructive. Extremities-trace edema bilaterally Admission labs and imaging studies reviewed Has cirrhosis with hepatocellular carcinoma-plan for IR guided radiation therapy for the tumor in [place] Has significant ascites and will need to rule out SBP with increasing pain GI consulted Agree with assessment and plan as outlined above by ANTHONY Mauricio Dr. (1) Cirrhosis Ascites presence: with ascites Hepatic cirrhosis type: alcoholic cirrhosis Qualified Code(s): K70.31 - Alcoholic cirrhosis of liver with ascites (2) Pancreatitis Acute pancreatitis complication: unspecified Chronicity: acute Pancreatitis type: unspecified pancreatitis type Qualified Code(s): K85.90 - Acute pancreatitis without necrosis or infection, unspecified (3) Abdominal pain Abdominal location: right upper quadrant Qualified Code(s): R10.11 - Right upper quadrant pain
[2018-09-25] MEDS ORDERED: ONDANSETRON INJ 2 MG/ML 2 ML VIAL IV PRN (19:29)
[2018-09-25] MEDS ORDERED: HYDROmorphone INJ 0.5 MG/0.5 ML SYR ONE (20:16)
[2018-09-25] MEDS: LACTULOSE SYRUP 10 GM/15 ML BTL 473 ML PO SCH (21:06)
[2018-09-25] MEDS: HEPARIN SOD 5,000 UNIT/0.5 ML VIAL SQ SCH (21:06)
[2018-09-25] MEDS: ERYTHROMYCIN OP OINT 5 MG/GM 3.5 GM TUBE OPR SCH (21:07)
--- NOTE | 2018-09-25 21:26 | Ultrasound Report ---
ULTRASOUND RIGHT UPPER QUADRANT ABDOMEN CLINICAL HISTORY: Right upper quadrant abdominal pain. COMPARISON STUDY: Abdominal CT dated 09/25/2018. TECHNIQUE: Real-time, grayscale, and color flow sonography of the right upper quadrant of the abdomen was performed. Images are reviewed in the transverse and longitudinal planes. FINDINGS: Liver: The liver is cirrhotic in morphology and heterogeneous and echotexture. There is no intrahepat ic biliary ductal dilatation. The main portal vein is patent. A 5 cm hepatic mass is again seen in th e right lobe. Gallbladder: The gallbladder is mildly distended. There is minimal biliary sludge. No shadowing galls tones are identified. Mild gallbladder wall thickening is nonspecific. The gallbladder wall measures up to 3 mm. A sonographic Che's sign could not be assessed as the patient received analgesia. The common bile duct measures up to 0.8 cm in diameter. Pancreas: Not visualized due to overlying bowel gas. Right kidney: Survey images of the right kidney demonstrate normal size and echotexture. There is no hydronephrosis. A 9 mm shadowing calculus is seen in the right lower pole. Ascites: There is a small volume of upper abdominal ascites. IMPRESSION: 1. The liver is cirrhotic in morphology and heterogeneous in echotexture. 2. A 5 cm hepatic mass is again identified. This remains highly concerning for hepatocellular carcino ma. 3. There is a small volume of upper abdominal ascites. 4. Mild gallbladder wall thickening is nonspecific and likely related to cirrhosis and ascites. No sh adowing gallstones are identified and there is no sonographic evidence of acute cholecystitis. 5. Right-sided nephrolithiasis. Electronically signed by: Ralf Sorto M.D. 09/25/2018 9:25 PM
--- NOTE | 2018-09-25 21:34 | Ultrasound Report ---
ULTRASOUND ASCITES CHECK CLINICAL HISTORY: Abdominal ascites. COMPARISON STUDY: Abdominal CT performed the same day 09/25/2018. FINDINGS: Real-time grayscale sonography of all 4 quadrants of the abdomen is performed to assess for abdominal ascites. There is a moderate volume of abdominopelvic ascites. The largest pocket of fluid is present in the right lower quadrant. The liver is cirrhotic in morphology. IMPRESSION: There is a moderate volume of abdominopelvic ascites. Electronically signed by: Ralf Sorto M.D. 09/25/2018 9:32 PM
--- NOTE | 2018-09-25 23:43 | Emergency Department Note ---
Entered by Campos Agustin acting as a scribe for Ayad Balderas MD ED Provider Note CHIEF COMPLAINT: Abdominal pain HISTORY OF PRESENT ILLNESS: The patient is a 63 year old male who presents to the Emergency Room with complaints of constant right upper quadrant abdominal pain that started 2 days ago. The patient rates the pain as a 10/10 and notes he did not take anything to try to relieve it. The patient has been here multiple times in the past for similar symptoms and last time he was here, 3 weeks ago, he had fluid drained from his abdomen. He notes that today he does not feel bloated so he does not believe it is a fluid build up. The patient reports that his pain makes him nauseous to the point where he can not leave bed. The patient notes that the pain also causes him to dry heave but he has not been vomiting. The patient has a history of hepatic cirrhosis and hepatitis C. Pt denies LOC, headache, fevers, chills, diaphoresis, visual changes, neck pain, chest pain, breathing difficulties, vomiting, back pain, melena, hematochezia, urinary symptoms, numbness, weakness, lymphadenopathy, rash, or other complaints. REVIEW OF SYSTEMS: See HPI for pertinent positives and negatives. A total of ten systems were reviewed and were otherwise negative. PMHx/PSHx: Hepatic cirrhosis, Hepatitis C, DVT prophylaxis, ENRIKE, Liver lesion, Hyperammonemia, Ascites, Alcohol use disorder SOCIAL HISTORY: Patient lives at home. PHYSICAL EXAM: GENERAL: Awake, alert, uncomfortable-appearing, in no distress HENT: Normocephalic, atraumatic. Oropharynx unremarkable. EYES: Normal conjunctiva. Sclera non-icteric. NECK: Inspection normal. Non-tender. Supple. No nuchal rigidity. FROM. No masses. RESPIRATORY: Clear to auscultation. No wheezes. No rales. Normal respiratory effort. CARDIAC: Normal rate. Normal rhythm. No murmurs. No rubs. Extremities warm and well perfused. Pulses equal. No JVD. GI: Soft, non-distended. RUQ tenderness with guarding. No rebound. No masses. RECTAL: Deferred. MUSCULOSKELETAL: Atraumatic. Chest examination reveals no tenderness. The back is symmetrical on inspection without obvious abnormality. There is no CVA tenderness to palpation. No joint edema. LOWER EXTREMITIES: Calves are equal size bilaterally and non-tender. No edema. No discoloration. NEURO: Normal sensorium. No sensory or motor deficits noted. SKIN: No rash or jaundice noted. EMERGENCY DEPARTMENT COURSE: 1434: Past medical records reviewed. The patient was evaluated in room B09, and a complete history and physical examination were performed. 1522: I reevaluated the patient and he is feeling somewhat better but still in some pain. I ordered him more pain medication. 1657: I checked on the patient and he is still uncomfortable. We discussed the treatment plan with the family at bedside. They fully understand and are agreeable with the plan. 1705: I spoke to Clarice Polanco PAC under Dr. Ambar Spencer about the patient's case. They are going to accept the patient for further evaluation. MEDICAL DECISION MAKING: B9 Prior records/ancillary studies reviewed. Triage Nursing notes reviewed and agree them. Additional history obtained from patient significant other. The patient's history was concerning for abdominal pain. Differential diagnosis: Etiologies such as comp location of hepatocellular carcinoma, appendicitis, diverticulitis, PUD, biliary pathology, UTI, pancreatitis, obstruction, mesenteric ischemia, aortic pathology, infections, inflammatory bowel disease, renal colic, SBP as well as others were entertained. Physical examination findings: As above. Upper abdominal tenderness. No rebound or diffuse tenderness. ER treatment provided: IV Dilaudid and Zofran times multiple doses. Normal saline hydration On reassessment the patient felt better. Diagnostics interpreted by me: ECG: No acute ischemia. Normal sinus. The labs revealed mild anemia on CBC. INR was slightly elevated at 1.4. The patient's ammonia level is mildly elevated as well. Clinically he is not altered. Lipase is moderately elevated concerning for pancreatitis. This is much higher than prior values. Imaging studies: CT scan of the abdomen pelvis revealed the liver cancer. No obstruction. No acute findings noted per radiology. The patient has upper abdominal tenderness. Labs are concerning for developing pancreatitis. He has known hepatocellular carcinoma. His left and lower abdomen was nontender. Suspicion for SBP is very low. No fever or leukocytosis. I discussed further management in the hospital given his persistent pain after IV narcotics. I gave my usual and customary discussion regarding this issue. Consultation: A consultation was placed with the [facility] team. The case was discussed and diagnostics were reviewed. The patient was evaluated in the ER for further treatment. IMPRESSION: Right upper quadrant abdominal pain Pancreatitis Hepatocellular carcinoma PLAN: Being evaluated by hospitalist The scribe's documentation has been prepared under my direction and personally reviewed by me in its entirety. I confirm that the note above accurately reflects all work, treatment, procedures, and medical decision making performed by me. 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) Alcohol use disorder (Chronic) Tobacco use disorder (Chronic) Hepatitis C (Chronic) Surgical History History of esophagogastroduodenoscopy (EGD) Family History Father Cancer Mother Diabetes Kidney disease Social History Preferred Language: Nigerian Communication Ability: Effective Visual Impairment: No Limitations Hearing Ability: Normal Outdoor Landscape Architect Required: No Beliefs That Will Affect Care: None marital status: Life Partner Current Living Situation: Significant Other current occupational status: unemployed Other Information That Helps Us Care for You: No Feels Safe at Home: Yes Safety Concerns: Feels Safe At This Time Smoking Status: Current every day smoker Tobacco Type: cigarettes ; Cigarettes Per Day: 10 ; Do You Dip or Chew Tobacco: No ; Second Hand Exposure: Yes ; Tobacco Cessation Education Requested by Patient: No Hx Alcohol Use: No (not in last 8 months) Hx Substance Use: No Results & Data Vital Signs Vital Signs - 24 hr 09/25/18 14:16 09/25/18 14:43 09/25/18 15:05 Temperature 36.7 C Temperature Source Oral Sepsis Recent Fever Within 48 Hours No Sepsis Action Taken by Nursing No Action Required Pulse Rate 78 68 Pulse Rate from SpO2 Sensor 69 Respiratory Rate 20 17 Respiratory Effort / Characteristics Spontaneous Respiratory Depth Normal Blood Pressure 114/74 Blood Pressure Mean 87 Pulse Oximetry 99 97 96 Oxygen Delivery Method Room Air Room Air Room Air 09/25/18 15:23 09/25/18 15:30 09/25/18 16:00 Temperature Temperature Source Sepsis Recent Fever Within 48 Hours Sepsis Action Taken by Nursing Pulse Rate 61 63 62 Pulse Rate from SpO2 Sensor 61 62 63 Respiratory Rate 16 10 L 17 Respiratory Effort / Characteristics Respiratory Depth Blood Pressure 93/58 L 91/60 L Blood Pressure Mean 69 70 Pulse Oximetry 96 96 96 Oxygen Delivery Method Room Air Room Air Room Air 09/25/18 16:30 09/25/18 17:00 09/25/18 17:30 Temperature Temperature Source Sepsis Recent Fever Within 48 Hours Sepsis Action Taken by Nursing Pulse Rate 62 69 58 L Pulse Rate from SpO2 Sensor 62 69 58 L Respiratory Rate 11 L 18 15 Respiratory Effort / Characteristics Respiratory Depth Blood Pressure 112/73 Blood Pressure Mean 86 Pulse Oximetry 96 97 95 Oxygen Delivery Method Room Air Room Air Room Air 09/25/18 18:00 Temperature Temperature Source Sepsis Recent Fever Within 48 Hours Sepsis Action Taken by Nursing Pulse Rate 56 L Pulse Rate from SpO2 Sensor 57 L Respiratory Rate 12 Respiratory Effort / Characteristics Respiratory Depth Blood Pressure 86/64 L Blood Pressure Mean 71 Pulse Oximetry 94 Oxygen Delivery Method Room Air Home Medications Current Medication List: was personally reviewed by me Laboratory Data Attestation: I reviewed the patient's lab results. Result diagrams: 09/25/18 14:43 09/25/18 14:43 Lab Results 09/25/18 09/25/18 09/25/18 Range/Units 14:43 14:43 14:43 WBC 7.18 (4.8-10.8) K/uL RBC 3.20 L (4.7-6.1) M/uL Hgb 11.6 L (14.0-18.0) g/dL Hct 32.6 L (42-52) % MCV 101.9 H (80-100) fL MCH 36.3 H (25-34) pg MCHC 35.6 (32-36) g/dL RDW Std Deviation 65.2 H (36.4-46.3) fL RDW Coeff of Mitchell 17.8 H (11.5-14.5) % Plt Count 140 (130-400) K/uL MPV 9.1 (7.4-10.4) fL Immature Gran % (Auto) 0.4 % Neut % (Auto) 70.0 % Lymph % (Auto) 7.7 % [place] % (Auto) 19.8 % Eos % (Auto) 1.1 % Baso % (Auto) 1.0 % Immature Gran # (Auto) 0.03 H (0.00-0.02) K/uL Neut # (Auto) 5.03 (1.4-6.5) K/uL Lymph # (Auto) 0.55 L (1.2-3.4) K/uL [place] # (Auto) 1.42 H (0.11-0.59) K/uL Eos # (Auto) 0.08 (0-0.5) K/uL Baso # (Auto) 0.07 (0-0.2) K/uL PT 14.0 H (9.0-12.0) Seconds INR 1.4 H (0.9-1.1) Sodium 131 L (136-145) mmol/L Potassium 4.0 (3.5-5.1) mmol/L Chloride 100 (98-107) mmol/L Carbon Dioxide 24 (21-32) mmol/L Anion Gap 7.0 (3-11) BUN 16 (7-18) mg/dl Creatinine 0.82 (0.6-1.4) mg/dl Est Cr Clr Drug Dosing 74.7 ml/min Est GFR ( Amer) 110.6 Est GFR (Non-Af Amer) 95.4 BUN/Creatinine Ratio 20.2 H (10-20) Glucose 81 (70-99) mg/dl Calcium 8.8 (8.5-10.1) mg/dl Total Bilirubin 1.3 H (0.2-1) mg/dl AST 42 H (15-37) U/L ALT 26 (12-78) U/L Alkaline Phosphatase 119 H (45-117) U/L Ammonia (11-32) umol/L Total Protein 8.2 (6.4-8.2) gm/dl Albumin 2.7 L (3.4-5.0) gm/dl Globulin 5.5 H (2.5-4.0) gm/dl Albumin/Globulin Ratio 0.5 L (0.9-2) Lipase 781 H (73-393) U/L 09/25/18 Range/Units 14:43 WBC (4.8-10.8) K/uL RBC (4.7-6.1) M/uL Hgb (14.0-18.0) g/dL Hct (42-52) % MCV (80-100) fL MCH (25-34) pg MCHC (32-36) g/dL RDW Std Deviation (36.4-46.3) fL RDW Coeff of Mitchell (11.5-14.5) % Plt Count (130-400) K/uL MPV (7.4-10.4) fL Immature Gran % (Auto) % Neut % (Auto) % Lymph % (Auto) % [place] % (Auto) % Eos % (Auto) % Baso % (Auto) % Immature Gran # (Auto) (0.00-0.02) K/uL Neut # (Auto) (1.4-6.5) K/uL Lymph # (Auto) (1.2-3.4) K/uL [place] # (Auto) (0.11-0.59) K/uL Eos # (Auto) (0-0.5) K/uL Baso # (Auto) (0-0.2) K/uL PT (9.0-12.0) Seconds INR (0.9-1.1) Sodium (136-145) mmol/L Potassium (3.5-5.1) mmol/L Chloride (98-107) mmol/L Carbon Dioxide (21-32) mmol/L Anion Gap (3-11) BUN (7-18) mg/dl Creatinine (0.6-1.4) mg/dl Est Cr Clr Drug Dosing ml/min Est GFR ( Amer) Est GFR (Non-Af Amer) BUN/Creatinine Ratio (10-20) Glucose (70-99) mg/dl Calcium (8.5-10.1) mg/dl Total Bilirubin (0.2-1) mg/dl AST (15-37) U/L ALT (12-78) U/L Alkaline Phosphatase (45-117) U/L Ammonia 58.0 H (11-32) umol/L Total Protein (6.4-8.2) gm/dl Albumin (3.4-5.0) gm/dl Globulin (2.5-4.0) gm/dl Albumin/Globulin Ratio (0.9-2) Lipase (73-393) U/L Administered Medications Erythromycin (Erythromycin) 1 appln OPR QID VARUN Stop: 10/05/18 20:59 Last Admin: 09/25/18 21:07 Dose: 1 appln Documented by: [id number] Heparin Sodium (Porcine) (Heparin Sodium (Porcine)) 5,000 units SQ Q12 VARUN Stop: 10/25/18 20:59 Last Admin: 09/25/18 21:06 Dose: 5,000 units Documented by: [id number] Cosigned by: [id number] Sodium Chloride (Nss 1000ml) 1,000 mls @ 125 mls/hr IV .Q8H STA Stop: 09/26/18 01:16 Last Admin: 09/25/18 17:29 Dose: 125 mls/hr Documented by: [id number] Lactulose (Chronulac) 10 gm PO TID VARUN Stop: 10/25/18 20:59 Last Admin: 09/25/18 21:06 Dose: 10 gm Documented by: [id number] Discontinued Medications Hydromorphone HCl (Dilaudid) 0.5 mg IV Q15M PRN PRN Reason: Pain Stop: 10/09/18 14:34 Last Admin: 09/25/18 17:29 Dose: 0.5 mg Documented by: [id number] Admin: 09/25/18 15:27 Dose: 0.5 mg Documented by: [id number] Admin: 09/25/18 14:50 Dose: 0.5 mg Documented by: [id number] Hydromorphone HCl (Dilaudid) Confirm Administered Dose 0.5 mg .ROUTE .STK-MED ONE Stop: 09/25/18 20:17 Last Admin: 09/25/18 20:18 Dose: 0.5 mg Documented by: [id number] Sodium Chloride (Nss 1000ml) 500 mls @ 999 mls/hr IV .Q31M ONE Stop: 09/25/18 17:47 Last Infusion: 09/25/18 18:00 Dose: 0 mls/hr Documented by: [id number] Admin: 09/25/18 17:29 Dose: 999 mls/hr Documented by: [id number] Ioversol (Optiray 320 100ml) 94 ml IV ONCE PRN PRN Reason: Interaction Checking Stop: 09/29/18 15:43 Last Admin: 09/25/18 15:44 Dose: 94 ml Documented by: [id number] Ondansetron HCl (Zofran) 4 mg IV NOW STA Stop: 09/25/18 14:36 Last Admin: 08/14/19 14:50 Dose: 4 mg Documented by: [id number] Imaging Data Radiologist's Impression: Radiology results as stated below per my review and the radiologist's interpretation: CT abd pelvis IV con only CLINICAL HISTORY: RUQ abd pain, h/o of Cirrhosis, hepatocellular carcinoma COMPARISON STUDY: MRI dated 08/29/2018 TECHNIQUE: The patient was scanned in a dynamic helical fashion during intravenous and ministration of 94 cc of Optiray 320. A dose lowering technique was utilized adhering to the principles of ALARA. CT DOSE: 294.22 mGy.cm FINDINGS: Lower chest: There are lower lung zone atelectatic changes. Liver: The liver has a cirrhotic morphology. There is a 4.4 cm central hepatic mass, corresponding to the lesion described in the prior MRI study. This appears slightly larger. The findings are suspicious for hepatocellular carcinoma. Gallbladder: Unremarkable. Spleen: Normal in size and attenuation. Pancreas: Unremarkable. Adrenal glands: Unremarkable. Kidneys: There are nonobstructing renal calculi. There is no hydronephrosis. Bowel: There are no transition zones to indicate bowel obstruction. There is no evidence of acute diverticulitis. There are no findings to indicate acute appendicitis. Peritoneum: There is moderate ascites. There is no free air. There is a fat- containing umbilical hernia with mild infiltration of the fat. Vasculature: There are esophageal and gastric varices. Adenopathy: None. Pelvic viscera: The bladder, and pelvic viscera are unremarkable. Skeletal structures: No destructive osseous lesions are seen. IMPRESSION: 1. Hepatic cirrhosis with evidence of portal hypertension, moderate ascites, and varices 2. 4.4 cm central hepatic mass, corresponding to the lesion described in the prior MRI scan. The mass is suspicious for hepatocellular carcinoma 3. No evidence of bowel obstruction. No evidence of free air 4. Bilateral nephrolithiasis. No evidence of hydronephrosis. Electronically signed by: Armen Malloy M.D. 09/25/2018 3:56 PM Blood Pressure Blood Pressure Findings: Normal blood pressure Blood Pressure Disposition: further management by hospitalist Discharge Plan Visit Data *Final* Discharge Date/Time: 09/25/18 18:45 Chief Complaint: Abdominal Pain Stated Complaint: NAUSEA, ABDOMINAL PAIN, DIZZINESS ED Provider: Ayad Balderas Discharge Problem: Abdominal pain, RUQ (right upper quadrant), Pancreatitis, Hepatocellular carcinoma Patient Disposition: Admitted As Inpatient Discharge Instructions Interventions: ED Discharge Assessment Last Done: 09/25/18 18:45 Discharge Problem: Pancreatitis Qualifiers: Chronicity: acute Pancreatitis type: unspecified pancreatitis type Acute pancreatitis complication: unspecified Qualified Code(s): K85.90 - Acute pancreatitis without necrosis or infection, unspecified The scribe's documentation has been prepared under my direction and personally reviewed by me in its entirety. I confirm that the note above accurately reflects all work, treatment, procedures, and medical decision making performed by me.
[2018-09-26] MEDS: HYDROmorphone INJ 0.5 MG/0.5 ML SYR IV PRN ×5 (03:46→21:28)
[2018-09-26] MEDS: LACTULOSE SYRUP 10 GM/15 ML BTL 473 ML PO SCH ×3 (07:47→21:32)
[2018-09-26] MEDS: NICOTINE 14 MG/24 HR PATCH TD SCH (07:47)
[2018-09-26] MEDS: HEPARIN SOD 5,000 UNIT/0.5 ML VIAL SQ SCH ×2 (07:48→21:32)
[2018-09-26] MEDS: ERYTHROMYCIN OP OINT 5 MG/GM 3.5 GM TUBE OPR SCH ×4 (07:48→21:33)
[2018-09-26 08:43] LABS: Hematocrit (blood only) 32.6 % (42-52); Hemoglobin 11.6 g/dL (14.0-18.0); Mean Corpuscular Hgb Conc 35.6 g/dL (32-36); Mean Corpuscular Volume 102.8 fL (80-100); Platelet Count 125 K/uL (130-400); RDW Coefficient of Variation 17.8 % (11.5-14.5); Red Blood Count 3.17 M/uL (4.7-6.1); White Blood Count 6.36 K/uL (4.8-10.8)
[2018-09-26 08:56] LABS: INR 1.4 (0.9-1.1); Prothrombin Time 13.9 Seconds (9.0-12.0)
[2018-09-26] MEDS ORDERED: SPIRONOLACTONE 100 MG TAB PO SCH (09:00)
[2018-09-26] MEDS ORDERED: FUROSEMIDE 40 MG TAB PO SCH (09:00)
[2018-09-26 09:17] LABS: Albumin Level 2.7 gm/dl (3.4-5.0); BUN Creatinine Ratio 18.2 (10-20); Calcium 8.9 mg/dl (8.5-10.1); Creatinine Clr Calc Pharmacy 68.8 ml/min; Est GFR (Non-African American) 92.3; Potassium 4.4 mmol/L (3.5-5.1)
[2018-09-26 09:23] LABS: Albumin Globulin Ratio 0.5 (0.9-2); Globulin 5.4 gm/dl (2.5-4.0); Total Protein 8.1 gm/dl (6.4-8.2)
--- NOTE | 2018-09-26 11:02 | Gastrointestinal Consultation ---
Date of Consultation September 26, 2018 Assessment & Plan (1) Pancreatitis: His symptoms are more chronic but may have an acute pancreatitis in addition to chronic pain cause by the liver tumor and the umibilical hernia. If present - possibly from passage of gallbladder sludge. Pt denies drinking any alcohol x 10 months. Will check triglycerides. Will treat for acute pancreatitis. IV fluids, begin clear liquids po. Trend LFTs, lipase. Present on Admission?: Yes (2) Hepatocellular carcinoma: F/u with IR [place] to arrange chemoembolization. Present on Admission?: Yes (3) Cirrhosis: Needs close OP GI/hepatology and [place] liver transplant service follow up. Will need continued titration of diuretics. Would restart OP diuretics after resolution of lipasemia/pancreatitis. Continue alcohol abstention. After tx of HCC, may be a good candidate for liver transplant. Present on Admission?: Yes Supervising Physician Co-Signing Physician Notes I have seen and examined the patient and discussed the management with DEVANTE Rankin. 63 yo male wtih a history of etoh/hcv cirrhosis, hcc - being worked up for tace, sober for 7 months. D/w ascites. Admitted with abd pain- lipase elevation suggestive of pancreatitis. PE- alert and oriented, abd - distended with ascites, soft, umbilical hernia, Ext - soft nt nd +bs Labs reviewed Imaging reviewed Agree with further plan of care as per Shilo's assessment. Treating for presumed pancreatitis - denies recent etoh use. Consider diagnostic paracentesis to rule out sbp. History of Present Illness Reason for Consultation: abdominal pain, elevated lipase, hx cirrhosis Requesting Physician: Dr. Treviño Attending Physician: Maurisio Treviño MD History of Present Illness Mr. Isaac Roach is a 63 yr old male pt of Dr. Garcia who presented to the ED yesterday for abdominal pain. He carries a hx of HCV/ETOH cirrhosis, abstinent x 10 months and is being followed by liver transplant service in [place]. Until last month, and regular GI care had lapsed. He was presenting to the ED department here approximately monthly requesting paracentesis which was typically provided during the ED visit. He is also maintained on furosemide 40, spironolactone 100mg daily for ascites. HCC was found on imaging in August (during a [facility] admission) and he with [facility] on 09/24 and BED chemoembolization is being arranged. In the interim, he has had chronic abdominal pain, mostly umbilical, related to a hernia, but also, diffuse, worse on the right than left, constant, for months, worse in the past week. He presented for this pain. On arrival, Lipase was elevated to 700's, LFTs are mildly elevated T bili 2, AST 42, ALT 23, Alk Phos 94,. Liver function is normal. BUN 16, Cr 0.9. INR is 1.4. US with a 5cm liver mass, mild gallbladder wall thickening, mild ascites. CT with IV contrast on with a 4.4. cm liver lesion suggestive of HCC, no bowel obstruction, moderate ascites and presence of portal HTn and varies. Today, he continues with diffuse abdominal pain, though slightly improved compared to yesterday. He is awake, alert, oriented and asks to eat. Allergies Allergy/AdvReac Type Severity Reaction Status Date / Time iodine Allergy Unknown Unknown Verified 08/27/18 16:45 shellfish derived Allergy Unknown Hives and Verified 08/27/18 16:45 respiratory problems Home Medications Home Medications Medication Instructions Recorded Confirmed Type multivitamin 1 tab PO QAM 05/26/18 09/25/18 History spironolactone 100 mg PO QAM 07/10/18 09/25/18 History lactulose [Constulose] 10 g PO UD 08/27/18 09/25/18 History erythromycin 1 applic OPR QID 09/25/18 09/25/18 History furosemide [Lasix] 40 mg PO QAM 09/25/18 09/25/18 History Patient History Medical History Ascites (Chronic) Cirrhosis (Chronic) 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) Alcohol use disorder (Chronic) Tobacco use disorder (Chronic) Hepatitis C (Chronic) Surgical History History of esophagogastroduodenoscopy (EGD) Family History Father Cancer Mother Diabetes Kidney disease Social History Preferred Language: Kinyarwanda Communication Ability: Effective Visual Impairment: No Limitations Hearing Ability: Normal Medical Case Worker Required: No Beliefs That Will Affect Care: None marital status: Life Partner Current Living Situation: Significant Other current occupational status: unemployed Other Information That Helps Us Care for You: No Feels Safe at Home: Yes Safety Concerns: Feels Safe At This Time Smoking Status: Current every day smoker Tobacco Type: cigarettes ; Cigarettes Per Day: 10 ; Do You Dip or Chew Tobacco: No ; Second Hand Exposure: Yes ; Tobacco Cessation Education Requested by Patient: No Hx Alcohol Use: No (not in last 8 months) Hx Substance Use: No Review of Systems Review of Systems: ROS: Gen: Denies weakness, fevers, weight loss Eyes: No eye redness or yellow eyes, or pain, no recent vision changes Resp: No SOB, no cough Cardio: No palpitations/irregular beats, no chest pain GI: + chronic abdominal pain, no nausea/vomiting : Denies pain on urination Skin: No jaundice, itching or new rashes Physical Exam Constitutional: WD/WN, vitals as above Eyes: PERRL, conjunctivae normal, anicteric sclerae ENMT: external ear and nose normal, oropharynx normal Neck: trachea midline, no thyromegaly Respiratory: normal respiratory effort, lungs clear to auscultation Cardiovascular: RRR, no murmur, no edema Gastrointestinal (Abdomen): Percussion/Palpation: + abdomen tender (most tender in the periumbilical area but also entire RUQ, epigastric area), abdomen soft, + hernia (3cm protruberant umbilical hernia, soft and reducible - very tender ) and + ascites (minimal) Results & Data Vital Signs (Past 12 Hours) Vital Signs Temp Pulse Resp BP BP Pulse Ox 09/26/18 07:19 36.5 C 55 L 16 111/74 97 09/25/18 23:35 36.7 C 54 L 18 103/68 98 Diagnostic Findings Liver US 09/25: 1. The liver is cirrhotic in morphology and heterogeneous in echotexture. 2. A 5 cm hepatic mass is again identified. This remains highly concerning for hepatocellular carcinoma. 3. There is a small volume of upper abdominal ascites. 4. Mild gallbladder wall thickening is nonspecific and likely related to cirrhosis and ascites. No shadowing gallstones are identified and there is no sonographic evidence of acute cholecystitis. 5. Right-sided nephrolithiasis. CT with IV contrast 09/25: . Hepatic cirrhosis with evidence of portal hypertension, moderate ascites, and varices 2. 4.4 cm central hepatic mass, corresponding to the lesion described in the prior MRI scan. The mass is suspicious for hepatocellular carcinoma 3. No evidence of bowel obstruction. No evidence of free air 4. Bilateral nephrolithiasis. No evidence of hydronephrosis. (1) Pancreatitis Acute pancreatitis complication: unspecified Chronicity: acute Pancreatitis type: unspecified pancreatitis type Qualified Code(s): K85.90 - Acute pancreatitis without necrosis or infection, unspecified
[2018-09-26] MEDS: MULTIVITAMIN TAB PO SCH (11:31)
--- NOTE | 2018-09-26 15:56 | Hospitalist Progress Note ---
Date of Service September 26, 2018 Assessment & Plan (1) Abdominal pain: (2) Pancreatitis: per admitting team: Pt with PMH hepatitis C/alcoholic cirrhosis, recurrent ascites requiring paracentesis presented with complaint of abdominal pain x3 days. Patient reports chronic abdominal pain around umbilicus at site of umbilical hernia, however past 3 days with epigastric and RUQ abdominal pain. Denies back pain. +nausea, denies vomiting. Chronic loose stools as is on lactulose. No fever/chil ls. In ER pt afebrile, P: 78, R: 20, BP: 114/74, 91/60, 112/73, 99% on RA WBC: 7, H/H: 11.6/32 (baseline Hgb~11-12), INR: 1.4, Na: 131 (chronic), Total bili: 1.3, AST: 42, ALT: 26, Alk Phos: 119, ammonia: 58 (was 41 on 08/27/18), Lipase: 781 (was 444 on 08/27/18), UA unremarkable CT ABD/PELVIS: 1. Hepatic cirrhosis with evidence of portal hypertension, moderate ascites, and varices 2. 4.4 cm central hepatic mass, corresponding to the lesion described in the prior MRI scan. The mass is suspicious for hepatocellular carcinoma 3. No evidence of bowel obstruction. No evidence of free air 4. Bilateral nephrolithiasis. No evidence of hydronephrosis. abdominal pain relieved by analgesics evaluated by GI possible Mild Pancreatitis follow lipase IV fluids hold Lasix/Spironolactone from Liver Mass already [place] [facility] PO Oxycodone to IV Dilaudid PRN (3) Cirrhosis: CT ABD/PELVIS: moderate ascites -Continue lactulose -Lasix, spironolactone on hold for now (4) Liver lesion: Suspected hepatocellular carcinoma Today CT ABD/PELVIS: 4.4 cm central hepatic mass, corresponding to the lesion described in the prior MRI scan. The mass is suspicious for hepatocellular carcinoma MRI 08/2018: 3.5 cm segment 4a hepatic mass. This lesion is hypervascular, demonstrates rapid washout, and demonstrates restricted water diffusion. The findings are highly suspicious for hepatocellular carcinoma. 09/24/2018 had appointment with [place] [facility] [place], discussion for chemoembolization (5) Tobacco use disorder: -Smoking cessation encouraged -Nicotine patch DVT Prophylaxis -Heparin SQ Follows with Dr Sadler for routine care Subjective ff up for abdominal pain seen resting in bed, not in distress still has abdominal pain, mostly in the RUQ radiating to the RLQ, dull relieved by PRN analgesic no nausea no fever/chills (+) normal BM no other symptom Review of Systems Review of Systems: All systems reviewed & are unremarkable except as noted in HPI & below Physical Exam Physical Exam: General- oriented x 3, not in distress, speaks in sentences with no effort or accessory muscle use Eyes- anicteric Neck- no JVD Lungs- clear breath sounds bilaterally, no rales/wheezes Heart- normal rate, regular rhythm; no murmurs Abdomen- normal bowel sounds, nondistended, soft, mild RUQ tenderness umbilical hernia: reducible Extremities- no pretibial edema, no calf tenderness Neuro- alert, oriented x 3; no gross focal neurologic deficits Skin- warm & dry Results & Data Vital Signs (Past 12 Hours) Vital Signs Temp Pulse Resp BP BP Pulse Ox 09/26/18 15:11 36.8 C 60 18 105/72 96 09/26/18 07:19 36.5 C 55 L 16 111/74 97 (1) Cirrhosis Ascites presence: with ascites Hepatic cirrhosis type: alcoholic cirrhosis Qualified Code(s): K70.31 - Alcoholic cirrhosis of liver with ascites (2) Pancreatitis Acute pancreatitis complication: unspecified Chronicity: acute Pancreatitis type: unspecified pancreatitis type Qualified Code(s): K85.90 - Acute pancreatitis without necrosis or infection, unspecified (3) Abdominal pain Abdominal location: right upper quadrant Qualified Code(s): R10.11 - Right upper quadrant pain
[2018-09-26] MEDS: LACTATED RINGER'S 1,000 ML IV SCH (16:05)
[2018-09-26] MEDS: OXYCODONE HCL IR 5 MG TAB (IMMEDIATE RELEASE) PO PRN (21:31)
[2018-09-27] MEDS: HYDROmorphone INJ 0.5 MG/0.5 ML SYR IV PRN ×3 (02:25→16:26)
[2018-09-27] MEDS: LACTATED RINGER'S 1,000 ML IV SCH ×2 (04:42→17:43)
[2018-09-27] MEDS: OXYCODONE HCL IR 5 MG TAB (IMMEDIATE RELEASE) PO PRN ×3 (04:45→20:49)
[2018-09-27] MEDS: NICOTINE 14 MG/24 HR PATCH TD SCH (06:05)
[2018-09-27] MEDS: LACTULOSE SYRUP 10 GM/15 ML BTL 473 ML PO SCH ×3 (08:15→20:44)
[2018-09-27] MEDS: MULTIVITAMIN TAB PO SCH (08:15)
[2018-09-27] MEDS: HEPARIN SOD 5,000 UNIT/0.5 ML VIAL SQ SCH ×2 (08:16→21:11)
[2018-09-27] MEDS: ERYTHROMYCIN OP OINT 5 MG/GM 3.5 GM TUBE OPR SCH ×4 (08:16→20:44)
--- NOTE | 2018-09-27 09:44 | Ultrasound Report ---
US paracentesis abd w/image CLINICAL HISTORY: 63 years-old Male presenting with Cirrhosis, abdominal pain r/o SBP. COMPARISON: 09/25/2018. PROCEDURE: The procedure and its risks, benefits, and alternatives were discussed with the patient, and written informed consent was obtained. A timeout was performed to confirm patient identity. Limited ultrasound of the abdomen was performed to determine a safe needle entry site, and the site w as marker for paracentesis. The right lower quadrant was prepped and draped in the usual aseptic fashion. 1% Lidocaine was used f or local anesthesia. A paracentesis needle was inserted into the peritoneal space using ultrasound guidance. The needle wa s connected to tubing and a vacuum suction device. A total of 0.3 L of clear yellow ascites was aspir ated. The sheath was removed, and a dressing applied. The patient tolerated the procedure well. No immediate complications. IMPRESSION: Ultrasound-guided diagnostic paracentesis with aspiration of 0.3 L of ascites. Electronically signed by: Miguel Barnes M.D. 09/27/2018 9:42 AM
[2018-09-27 10:50] LABS: Appearance Peritoneal Fluid CLEAR; Color Peritoneal Fluid YELLOW; Mononuclear WBC Peritoneal 89.8 %; Polynuclear WBC Peritoneal 10.2 %; RBC Peritoneal Fluid (A) < 3000 /uL; WBC Peritoneal Fluid (A) 222 /ul (0-300)
--- NOTE | 2018-09-27 13:11 | Gastroenterology Progress Note ---
Date of Service September 26, 2018 Supervising Physician Co-Signing Physician Notes 63 yo male with hcv/ethanol cirrhosis, sober for 7 months, hcc on imaging [facility] Admitted with abdominal pain thought to be pancreatitis. Would advance diet as tolerated. Outpatient hepatology/IR follow-up as previously scheduled. No current evidence of SBP. Subjective no acute complaints Review of Systems Review of Systems: All systems reviewed & are unremarkable except as noted in HPI & below Physical Exam Physical Exam: Lying in bed in no acute distress Eyes: PERRL, conjunctivae normal, anicteric sclerae Respiratory: normal respiratory effort, lungs clear to auscultation Cardiovascular: RRR, no murmur, no edema Gastrointestinal (Abdomen): Distended abdomen with ascites Results & Data Vital Signs (Past 12 Hours) Vital Signs Temp Pulse Resp BP BP Pulse Ox 09/26/18 07:19 36.5 C 55 L 16 111/74 97 09/25/18 23:35 36.7 C 54 L 18 103/68 98 MELD stable diagnostic paracentesis without SBP Lipase normal
--- NOTE | 2018-09-27 13:19 | Gastroenterology Progress Note ---
Date of Service September 27, 2018 Supervising Physician Co-Signing Physician Notes 63 yo male with a history of etoh cirrhosis, hcc, admitted with abd pain Negative for sbp. Outpatient fup for HCC for IR. Continue all other meds. Sober for 7 months. GI will sign off. Subjective no acute complaints Review of Systems Review of Systems: All systems reviewed & are unremarkable except as noted in HPI & below Physical Exam Physical Exam: Lying in bed on a stretcher Constitutional: WD/WN, vitals as above Gastrointestinal (Abdomen): normal bowel sounds, soft, nontender, no hepatosplenomegaly Results & Data Vital Signs (Past 12 Hours) Vital Signs Temp Pulse Resp BP Pulse Ox 09/27/18 08:05 37.1 C 65 19 98/66 L 96 Diagnostic paracentesis without evidence of sbp
--- NOTE | 2018-09-27 19:47 | Hospitalist Progress Note ---
Date of Service September 27, 2018 Assessment & Plan (1) Abdominal pain: (2) Pancreatitis: per admitting team: Pt with PMH hepatitis C/alcoholic cirrhosis, recurrent ascites requiring paracentesis presented with complaint of abdominal pain x3 days. Patient reports chronic abdominal pain around umbilicus at site of umbilical hernia, however past 3 days with epigastric and RUQ abdominal pain. Denies back pain. +nausea, denies vomiting. Chronic loose stools as is on lactulose. No fever/chil ls. In ER pt afebrile, P: 78, R: 20, BP: 114/74, 91/60, 112/73, 99% on RA WBC: 7, H/H: 11.6/32 (baseline Hgb~11-12), INR: 1.4, Na: 131 (chronic), Total bili: 1.3, AST: 42, ALT: 26, Alk Phos: 119, ammonia: 58 (was 41 on 08/27/18), Lipase: 781 (was 444 on 08/27/18), UA unremarkable CT ABD/PELVIS: 1. Hepatic cirrhosis with evidence of portal hypertension, moderate ascites, and varices 2. 4.4 cm central hepatic mass, corresponding to the lesion described in the prior MRI scan. The mass is suspicious for hepatocellular carcinoma 3. No evidence of bowel obstruction. No evidence of free air 4. Bilateral nephrolithiasis. No evidence of hydronephrosis. abdominal pain improving evaluated by GI possible Mild Pancreatitis Lipase normalized hold Lasix/Spironolactone for now from Liver Mass already scheduled for ff up with [facility] [place] Pradeep PO Oxycodone and IV Dilaudid PRN Improving overall DC IV fluids (3) Cirrhosis: CT ABD/PELVIS: moderate ascites -Continue lactulose -Lasix, spironolactone on hold for now (4) Liver lesion: Suspected hepatocellular carcinoma Today CT ABD/PELVIS: 4.4 cm central hepatic mass, corresponding to the lesion described in the prior MRI scan. The mass is suspicious for hepatocellular carcinoma MRI 08/2018: 3.5 cm segment 4a hepatic mass. This lesion is hypervascular, demonstrates rapid washout, and demonstrates restricted water diffusion. The findings are highly suspicious for hepatocellular carcinoma. 09/24/2018 had appointment with interventional radiology at [facility] [place] Dr Malave, discussion for chemoembolization (5) Tobacco use disorder: -Smoking cessation encouraged -Nicotine patch DVT Prophylaxis -Heparin SQ Follows with Dr Sadler for routine care Subjective Follow-up for abdominal pain Seen sitting up in bed, comfortable, eating ice cream States he feels improved today, right upper quadrant pain is improving relieved by analgesics Denies nausea vomiting, positive loose BMs Fevers or chills No other symptoms Review of Systems Review of Systems: All systems reviewed & are unremarkable except as noted in HPI & below Physical Exam Physical Exam: General- oriented x 3, not in distress, speaks in sentences with no effort or accessory muscle use Eyes- anicteric Neck- no JVD Lungs- clear BS bilaterally, no crackles no wheezing Heart- normal rate, regular rhythm; no murmurs Abdomen- normal bowel sounds, nondistended, soft, mild tenderness in the right upper quadrant Extremities- no pretibial edema, no calf tenderness Neuro- alert, oriented x 3; no gross focal neurologic deficits Skin- warm & dry Results & Data Vital Signs (Past 12 Hours) Vital Signs Temp Pulse Resp BP BP Pulse Ox 09/27/18 14:52 36.7 C 63 20 108/74 97 09/27/18 08:05 37.1 C 65 19 98/66 L 96 Laboratory Results Laboratory Results - last 24 hr 09/27/18 Unknown Peritoneal Color YELLOW Peritoneal Appearance CLEAR Peritoneal WBC 222 Peritoneal RBC < 3000 Mononuclear WBCs % 89.8 Polynuclear WBCs % 10.2 (1) Abdominal pain Abdominal location: right upper quadrant Qualified Code(s): R10.11 - Right upper quadrant pain (2) Pancreatitis Acute pancreatitis complication: unspecified Chronicity: acute Pancreatitis type: unspecified pancreatitis type Qualified Code(s): K85.90 - Acute pancreatitis without necrosis or infection, unspecified (3) Cirrhosis Ascites presence: with ascites Hepatic cirrhosis type: alcoholic cirrhosis Qualified Code(s): K70.31 - Alcoholic cirrhosis of liver with ascites
[2018-09-28] MEDS: HYDROmorphone INJ 0.5 MG/0.5 ML SYR IV PRN ×2 (00:17→08:44)
[2018-09-28] MEDS: OXYCODONE HCL IR 5 MG TAB (IMMEDIATE RELEASE) PO PRN (04:22)
[2018-09-28] MEDS: ERYTHROMYCIN OP OINT 5 MG/GM 3.5 GM TUBE OPR SCH (08:45)
[2018-09-28] MEDS: MULTIVITAMIN TAB PO SCH (08:45)
[2018-09-28] MEDS: HEPARIN SOD 5,000 UNIT/0.5 ML VIAL SQ SCH (08:46)
[2018-09-28] MEDS: NICOTINE 14 MG/24 HR PATCH TD SCH (08:46)
[2018-09-28] MEDS: LACTULOSE SYRUP 10 GM/15 ML BTL 473 ML PO SCH (08:47)
--- NOTE | 2018-09-28 12:01 | Hospitalist Progress Note ---
Date of Service September 28, 2018 Assessment & Plan (1) Abdominal pain: (2) Pancreatitis: per admitting team: Pt with PMH hepatitis C/alcoholic cirrhosis, recurrent ascites requiring paracentesis presented with complaint of abdominal pain x3 days. Patient reports chronic abdominal pain around umbilicus at site of umbilical hernia, however past 3 days with epigastric and RUQ abdominal pain. Denies back pain. +nausea, denies vomiting. Chronic loose stools as is on lactulose. No fever/chil ls. In ER pt afebrile, P: 78, R: 20, BP: 114/74, 91/60, 112/73, 99% on RA WBC: 7, H/H: 11.6/32 (baseline Hgb~11-12), INR: 1.4, Na: 131 (chronic), Total bili: 1.3, AST: 42, ALT: 26, Alk Phos: 119, ammonia: 58 (was 41 on 08/27/18), Lipase: 781 (was 444 on 08/27/18), UA unremarkable CT ABD/PELVIS: 1. Hepatic cirrhosis with evidence of portal hypertension, moderate ascites, and varices 2. 4.4 cm central hepatic mass, corresponding to the lesion described in the prior MRI scan. The mass is suspicious for hepatocellular carcinoma 3. No evidence of bowel obstruction. No evidence of free air 4. Bilateral nephrolithiasis. No evidence of hydronephrosis. abdominal pain significantly better evaluated by GI, abdominal pain likely from: possible Mild Pancreatitis Lipase normalized received IV fluids resume Lasix/Spironolactone from Liver Mass already scheduled for ff up with [facility] given PO Oxycodone and IV Dilaudid PRN prescribed with PO Oxycodone, PDMP queried- no issues scheduled for ff up with [facility] Hep[facility]ology [facility] this coming week (3) Cirrhosis: CT ABD/PELVIS: moderate ascites - abdomen not distended SBP unlikely -Continue lactulose, Lasix, spironolactone (4) Liver lesion: Suspected hepatocellular carcinoma Today CT ABD/PELVIS: 4.4 cm central hepatic mass, corresponding to the lesion described in the prior MRI scan. The mass is suspicious for hepatocellular carcinoma MRI 08/2018: 3.5 cm segment 4a hepatic mass. This lesion is hypervascular, demonstrates rapid washout, and demonstrates restricted water diffusion. The findings are highly suspicious for hepatocellular carcinoma. 09/24/2018 had appointment with interventional radiology at [facility] [place] Malave, discussion for chemoembolization follow with [facility] this coming week (5) Tobacco use disorder: -Smoking cessation encouraged -Nicotine patch Follow up with PCP in 1 week, scheduling office closed today, patient will be called for appointment on Sunday ff up with [facility], Hepatology as scheduled Subjective ff up for abdominal pain, liver mass seen resting in bed, comfortable not in distress states pain is now manageable, relieved with PRN Oxycodone denies nausea/vomiting, fever/chills, chest pain, dyspnea no other symptoms states he is ready and would like to be discharged today Review of Systems Review of Systems: All systems reviewed & are unremarkable except as noted in HPI & below Physical Exam Physical Exam: General- oriented x 3, not in distress, speaks in sentences with no effort or accessory muscle use Eyes- anicteric Neck- no JVD Lungs- clear BS BL Heart- normal rate, regular rhythm; no murmurs Abdomen- normal bowel sounds, nondistended, soft, nontender Extremities- no pretibial edema, no calf tenderness Neuro- alert, oriented x 3; no gross focal neurologic deficits Skin- warm & dry Results & Data Vital Signs (Past 12 Hours) Vital Signs Temp Pulse Resp BP Pulse Ox 09/28/18 07:03 36.6 C 57 L 16 96/61 L 96 Laboratory Results Laboratory Results - last 24 hr 09/28/18 08:19 POC Glucose 108 H (1) Cirrhosis Ascites presence: with ascites Hepatic cirrhosis type: alcoholic cirrhosis Qualified Code(s): K70.31 - Alcoholic cirrhosis of liver with ascites (2) Pancreatitis Acute pancreatitis complication: unspecified Chronicity: acute Pancreatitis type: unspecified pancreatitis type Qualified Code(s): K85.90 - Acute pancreatitis without necrosis or infection, unspecified (3) Abdominal pain Abdominal location: right upper quadrant Qualified Code(s): R10.11 - Right upper quadrant pain
--- NOTE | 2018-09-28 16:54 | Discharge Summary ---
Date of Service September 28, 2018 Admission HPI Per Admitting Provider Pt is 63 y/o M with PMH hepatitis C/alcoholic cirrhosis, recurrent ascites, liver mass, tobacco use presented to ER with complaint of abdominal pain x3 days. Patient reports chronic abdominal pain around umbilicus at site of umbilical hernia and reports no hernia surgery secondary to high risk procedure. Reports 3 days ago started with some epigastric discomfort which radiated to right upper quadrant. States decreased appetite yesterday and nausea. Reports dry heaves today and states abdominal pain has been consistent today. Reports does not eat today he takes lactulose and has 3-4 BMs daily. Reports 2 BMs so far today. Patient states has not noticed increased abdominal distention. Patient reports chronic dizziness with standing up quickly denies any increased dizziness. Last reported alcohol use 04/2018. Denies fever/chills, diaphoresis, confusion, hematemesis, melena, hematochezia, WARD, syncope, vision changes, neck pain, CP, SOB, orthopnea, palpitations, cough, sore throat, choking, otalgia, rh inorrhea, paresthesias, weakness, extremity weakness, extremity edema, rashes, urinary symptoms. History of hospitalization 08/27/2018-08/29/2018 for decompensated cirrhosis with abdominal pain and ascites and had ENRIKE. During that admission there was concern for SBP, paracentesis was performed after Rocephin was started, had 1 L fluid removed. He was discharged home on Cipro for 7-day course and his lactulose, Lasix 40 mg daily and spironolactone 100 mg daily was continued. History hospitalization 07/29/2018-07/31/2018 for ascites and had 3 L removed with paracentesis 09/24/2018 had appointment with interventional radiology at [facility] for liver mass which is suspected hepatocellular carcinoma, possible consideration for future chemoembolization Admission Exam Per Admitting Provider General: chronic ill appearing, no acute distress, thin Head: normocephalic, atraumatic Eyes: PERRL, EOM's intact, conjunctiva non-injected, anicteric ENT: normal inspection external ears, nose, mucous membranes moist Neck: supple, trachea midline Lungs: clear, no respiratory distress, no wheezing/rhonchi/rales CV: RRR, no murmur, no pretibial edema Abd: normal BS, soft, +umbilical hernia, +tenderness to palpation umbilical hernia, epigastric and RUQ without rebound Ext: no cyanosis, no calf tenderness Neuro: A&O x 3, no focal deficits noted, normal affect Skin: warm, dry, Principal Diagnosis ABDOMINAL PAIN, LIKELY FROM LIVER MASS, POSSIBLE MILD PANCREATITIS Discharge Exam General- oriented x 3, not in distress, speaks in sentences with no effort or accessory muscle use Eyes- anicteric Neck- no JVD Lungs- clear BS BL Heart- normal rate, regular rhythm; no murmurs Abdomen- normal bowel sounds, nondistended, soft, nontender Extremities- no pretibial edema, no calf tenderness Neuro- alert, oriented x 3; no gross focal neurologic deficits Skin- warm & dry Discharge Data Allergies Allergy/AdvReac Type Severity Reaction Status Date / Time iodine Allergy Unknown Unknown Verified 08/27/18 16:45 shellfish derived Allergy Unknown Hives and Verified 08/27/18 16:45 respiratory problems Consultations 09/25/18 17:17 ED Decision to Admit Stat 09/25/18 19:29 Consult Gastroenterology Routine Ordered Studies 09/25/18 14:35 CT abd pelvis IV con only Stat FINDINGS: Lower chest: There are lower lung zone atelectatic changes. Liver: The liver has a cirrhotic morphology. There is a 4.4 cm central hepatic mass, corresponding to the lesion described in the prior MRI study. This appears slightly larger. The findings are suspicious for hepatocellular carcinoma. Gallbladder: Unremarkable. Spleen: Normal in size and attenuation. Pancreas: Unremarkable. Adrenal glands: Unremarkable. Kidneys: There are nonobstructing renal calculi. There is no hydronephrosis. Bowel: There are no transition zones to indicate bowel obstruction. There is no evidence of acute diverticulitis. There are no findings to indicate acute appendicitis. Peritoneum: There is moderate ascites. There is no free air. There is a fat- containing umbilical hernia with mild infiltration of the fat. Vasculature: There are esophageal and gastric varices. Adenopathy: None. Pelvic viscera: The bladder, and pelvic viscera are unremarkable. Skeletal structures: No destructive osseous lesions are seen. IMPRESSION: 1. Hepatic cirrhosis with evidence of portal hypertension, moderate ascites, and varices 2. 4.4 cm central hepatic mass, corresponding to the lesion described in the prior MRI scan. The mass is suspicious for hepatocellular carcinoma 3. No evidence of bowel obstruction. No evidence of free air 4. Bilateral nephrolithiasis. No evidence of hydronephrosis. 09/25/18 17:54 US abdomen ltd ascites Urgent There is a moderate volume of abdominopelvic ascites. US gallbladder Urgent IMPRESSION: 1. The liver is cirrhotic in morphology and heterogeneous in echotexture. 2. A 5 cm hepatic mass is again identified. This remains highly concerning for hepatocellular carcinoma. 3. There is a small volume of upper abdominal ascites. 4. Mild gallbladder wall thickening is nonspecific and likely related to cirrhosis and ascites. No shadowing gallstones are identified and there is no sonographic evidence of acute cholecystitis. 5. Right-sided nephrolithiasis. 09/27/18 15:15 US paracentesis abd w/image Routine IMPRESSION: Ultrasound-guided diagnostic paracentesis with aspiration of 0.3 L of ascites. Hospital Course (1) Abdominal pain: (2) Pancreatitis: per admitting team: Pt with PMH hepatitis C/alcoholic cirrhosis, recurrent ascites requiring paracentesis presented with complaint of abdominal pain x3 days. Patient reports chronic abdominal pain around umbilicus at site of umbilical hernia, however past 3 days with epigastric and RUQ abdominal pain. Denies back pain. +nausea, denies vomiting. Chronic loose stools as is on lactulose. No fever/chills. In ER pt afebrile, P: 78, R: 20, BP: 114/74, 91/60, 112/73, 99% on RA WBC: 7, H/H: 11.6/32 (baseline Hgb~11-12), INR: 1.4, Na: 131 (chronic), Total bili: 1.3, AST: 42, ALT: 26, Alk Phos: 119, ammonia: 58 (was 41 on 08/27/18), Lipase: 781 (was 444 on 08/27/18), UA unremarkable CT ABD/PELVIS: 1. Hepatic cirrhosis with evidence of portal hypertension, moderate ascites, and varices 2. 4.4 cm central hepatic mass, corresponding to the lesion described in the prior MRI scan. The mass is suspicious for hepatocellular carcinoma 3. No evidence of bowel obstruction. No evidence of free air 4. Bilateral nephrolithiasis. No evidence of hydronephrosis. abdominal pain significantly better evaluated by GI, abdominal pain likely from: possible Mild Pancreatitis Lipase normalized received IV fluids resume Lasix/Spironolactone from Liver Mass already scheduled for ff up with [facility] Pradeep given PO Oxycodone and IV Dilaudid PRN prescribed with PO Oxycodone, PDMP queried- no issues SBP ruled out diagnostic paracentesis performed, peritoneal fluid culture: negative scheduled for ff up with [facility] this coming week (3) Cirrhosis: CT ABD/PELVIS: moderate ascites - abdomen not distended SBP unlikely -Continue lactulose, Lasix, spironolactone (4) Liver lesion: Suspected hepatocellular carcinoma Today CT ABD/PELVIS: 4.4 cm central hepatic mass, corresponding to the lesion described in the prior MRI scan. The mass is suspicious for hepatocellular carcinoma MRI 08/2018: 3.5 cm segment 4a hepatic mass. This lesion is hypervascular, demonstrates rapid washout, and demonstrates restricted water diffusion. The findings are highly suspicious for hepatocellular carcinoma. 09/24/2018 had appointment with interventional radiology at [facility] Dr [place]ave, discussion for chemoembolization follow with estella Fernández this coming week (5) Tobacco use disorder: -Smoking cessation encouraged -Nicotine patch Follow up with PCP in 1 week, scheduling office closed today, patient will be called for appointment on Sunday ff up with [facility], Hepatology as scheduled Total Time Total Time Spent Total Time Spent (In Minutes): 45 minutes Discharge Plan Discharge Items Patient Disposition: Home - Self-Care Reason For Visit: ABDOMINAL PAIN Discharge Diagnosis: Abdominal pain, liver mass Discharge Goals: Diagnostic testing and Therapeutic intervention Activity: As commented below Activity Comment: Resume activity gradually as tolerated Lifting: Wait until after follow-up appointment Exercise/Sports: Wait until after follow-up appointment Driving/Machine Use Comment: No driving Non-emergency contact: Primary Care Provider and Second Cutter Call non-emergency contact if: you have any medication questions, your symptoms worsen, your pain is not controlled, your pain is worsening and you have a fever Follow-up/Referrals: Sirena Sadler DO [Primary Care Provider] - Diet: Heart Healthy and Low Sodium (2gm) Addtl Provider Instructions: Follow-up with primary care physician in 1 week. The Office will call you for the appointment. Follow-up with liver specialist as scheduled. Primary care physician or return to the ER immediately if with recurrence of symptoms, Worsening abdominal pain, worsening abdominal distention, fevers or chills, nausea vomiting, yellowing of the skin. Prescriptions: New oxycodone 5 mg Tablet 5 mg PO Q6H PRN (Reason: pain) 7 Days Qty: 12 RF: 0 nicotine 7 mg/24 hr Patch 24 Hour 14 mg transdermal QAM 7 Days Qty: 7 RF: 0 Continued multivitamin Tablet 1 tab PO QAM RF: 0 spironolactone 100 mg tablet 100 mg PO QAM RF: 0 lactulose [Constulose] 10 gram/15 mL solution 10 g PO UD RF: 0 erythromycin 5 mg/gram (0.5 %) ointment 1 applic OPR QID RF: 0 furosemide [Lasix] 40 mg tablet 40 mg PO QAM RF: 0 Stand-Alone Forms: Call Back Authorization, [facility] Discharge Orders: Discharge Order (Routine); Ordered 09/28/18 Ordered By: Maurisio Treviño Admission Data Admit Date/Time: 09/25/18 18:05 Attending Provider: Maurisio Treviño Admit Provider: Reji Villalta Primary Care Provider: Sirena Sadler Other Providers: Rena Auguste ; Reji Villalta Service: Medical Other Interventions: Discharge Summary Assessment (RN) Last Done: 09/28/18 12:04 DC Date/Time DO NOT enter until pt leaves facility: 09/28/18 13:07
== END 2018-09-28 13:07 | disposition home or self-care (01) ==
LOC: 3N 14:13 → ED 14:13 → 3N 18:45